=== PATIENT | male | born 1965 | race Two or more races ===

== ENCOUNTER 2024-12-10 12:22 | Inpatient (IN) | payer MEDICAID, OTHER ==
[~2024-12-10] VITALS: Ht 175.3 cm; Wt 63.9 kg
[2024-12-10] VITALS (7 sets, daily range): BP systolic 93–122; BP diastolic 59–79; PULSE 108–114; RESP 18–20; TEMP 98; O2SAT 97–100
[~2024-12-10 12:22] MED LIST: ACET-6 PO; APIX2.5T PO; ASPI81CH59 PO; ATOR40TA52 PO; ERGO1CAP12 PO; FURO20TA4 PO; GAB100C PO; IBUP1TAB4 PO; LOSA-534 PO; METO25TA93 PO; PRED20TA2 PO
--- NOTE | 2024-12-10 12:45 | ED.PDOC ---
HPI Comments 59 y/o M, BIBA with PMHx of COPD, CHF, and PE presents to the ED for CC of chest pain. EMS reports, patient is coming from home where he complains of substernal chest pain with associated shortness of breath x1day. Patient states, that he was discharged from [facility] last night (12/09/24) and since, symptoms have arouse. In route to the ED, patient was given Nitro and Aspirin; reports slight improvement of symptoms. Patient comments, that he is currently on Eliquis no other medications reported at this time. Patient denies palpitations, fever, cough, chills, headache, or weakness. No other symptoms or modifying factors present at this time. Chief Complaint: Shortness of Breath Time Seen by MD: 12:30 Reviewed Notes: Nurses Notes, Liquor Blender Notes, Medications, Allergies Allergies: Coded Allergies: NO KNOWN ALLERGIES (Unverified , 12/10/24) Information Source: Patient, Emergency Med Personnel Mode of Arrival: EMS Severity: Moderate Timing: Hours Duration: Since onset Prehospital treatment: None Location: Substernal Radiation: No Radiation Quality: Sharp Onset: At Rest Cardiac Risk Factors: None PE Risk Factors: None History of: None Modifying Factors: Nothing Associated Signs and Symptoms: SOB Past Medical History PAST MEDICAL HISTORY: HTN, Thyroid Surgical History: Unknown Family History Family History: Unknown Social History Smoker: Non-Smoker Alcohol: Denies ETOH Use Drugs: Denies Drug Use Lives In: Home Constitutional: denies: chills, diaphoresis, fatigue, fever, malaise, sweats, weakness, others EENTM: denies: blurred vision, double vision, ear bleeding, ear discharge, ear drainage, ear pain, ear ringing, eye pain, eye redness, hearing loss, mouth pain, mouth swelling, nasal discharge, nose bleeding, nose congestion, nose pain, photophobia, tearing, throat pain, throat swelling, voice changes, others Respiratory: reports: shortness of breath; denies: cough, hemoptysis, orthopnea, SOB at rest, SOB with excertion, stridor, wheezing, others Cardiovascular: reports: chest pain; denies: dizzy spells, diaphoresis, Dyspnea on exertion, edema, irregular heart beat, left arm pain, lightheadedness, palpitations, PND, syncope, others Gastrointestinal: denies: abdomen distended, abdominal pain, blood streaked bowels, constipated, diarrhea, dysphagia, difficulty swallowing, hematemesis, melena, nausea, poor appetite, poor fluid intake, rectal bleeding, rectal pain, vomiting, others Genitourinary: denies: burning, dysuria, flank pain, frequency, hematuria, incontinence, penile discharge, penile sore, pain, testicle pain, testicle swelling, urgency, others Neurological: denies: dizziness, fainting, headache, left sided numbness, left sided weakness, numbness, paresthesia, pre-existing deficit, right sided numbness, right sided weakness, seizure, speech problems, tingling, tremors, weakness, others Musculoskeletal: denies: back pain, gout, joint pain, joint swelling, muscle pain, muscle stiffness, neck pain, others Integumetry: denies: bruises, change in color, change in hair/nails, dryness, laceration, lesions, lumps, rash, wounds, others Allergic/Immunocompromised: denies: Difficulty Healing, Frequent Infections, Hives, Itching, others Hematologic/Lymphatic: denies: anemia, blood clots, easy bleeding, easy bruising, swollen glands, others Endocrine: denies: excessive hunger, excessive sweating, excessive thirst, excessive urination, flushing, intolerance to cold, intolerance to heat, unexplained weight gain, unexplained weight loss, others Psychiatric: denies: anxiety, bipolar disorder, depression, hopeless, panic disorder, schizophrenia, sleepless, suicidal, others All Other Systems: Reviewed and Negative Physical Exam General Appearance: No Apparent Distress, Normal HEENT: Normal ENT Inspection, Pharynx Normal, TMs Normal Neck: Full Range of Motion, Non-Tender, Normal, Normal Inspection Respiratory: Chest Non-Tender, No Accessory Muscle Use, No Respiratory Distress, Wheezing (bilateral) Cardiovascular: No Edema, No JVD, No Murmur, No Gallop, Normal Peripheral Pulses, Regular Rate/Rhythm Breast Exam: Deferred Gastrointestinal: No Organomegaly, Non Tender, No Pulsatile Mass, Normal Bowel Sounds, Soft Genitalia: Deferred Pelvic: Deferred Rectal: Deferred Extremities: No calf tenderness, Normal capillary refill, Normal inspection, Normal range of motion, Non-tender, Pedal edema (3+) Musculoskeletal : Apperance: Normal Neurologic: Alert, mechanical assembler II-XII nml as Tested, No Motor Deficits, Normal Affect, Normal Mood, No Sensory Deficits Cerebellar Function: Normal Reflexes: Normal Skin: Dry, Normal Color, Warm Lymphatic: No Adenopathy Was a procedure done? Was a procedure done?: No CP Differential Dx Differential Diagnosis: A-fib, A-Flutter, Angina, Anxiety / Panic Attack, Atrial Dysrhythmia, Electrolyte Disorder, Heart Failure, Hyperthyroidism, Hyperventilation, Hypoxia, MAT, AK, PSVT, Pulmonary Embolus, PVC's, Renal Failure, Sinus Tachycardia, Torsades De Pointes, Ventricular Dysrhythmia, WPW Differential Diagnosis: CHF Differential Diagnosis: Chest Wall Pain, Costochondritis, Myocardial Infarction, Pericarditis, Pneumonia, Pneumothorax, Pulmonary Embolus X-Ray, Labs, Meds, VS Vital Signs Date Time Temp Pulse Resp B/P (MAP) Pulse Ox O2 Delivery O2 Flow Rate FiO2 12/10/24 13:36 108 12/10/24 13:05 113/70 12/10/24 13:00 108 20 98 Nasal Cannula* 4 36 12/10/24 13:00 98.0 108 20 113/70 (84) 98 98.0 12/10/24 13:00 109 12/10/24 12:58 21 96 Nasal Cannula* 3 32 12/10/24 12:35 95 Nasal Cannula* 4 36 12/10/24 12:30 109 24 120/76 (91) 95 12/10/24 12:24 109 Lab Test 12/10/24 13:04 Range/Units White Blood Count 12.0 H 4.4-10.8 10^3/uL Red Blood Count 4.55 4.5-5.90 10^6/uL Hemoglobin 14.6 13.5-17.5 g/dL Hematocrit 45.3 41.0-53.0 % Mean Corpuscular Volume 99.7 80.0-100.0 fL Mean Corpuscular Hemoglobin 32.2 H 28.0-32.0 pg Mean Corpuscular Hemoglobin Concent 32.3 32.0-36.0 g/dL Red Cell Distribution Width 14.7 H 11.8-14.3 % Platelet Count 120 L 140-450 10^3/uL Mean Platelet Volume 7.9 6.9-10.8 fL Neutrophils (%) (Auto) 37.0-80.0 % Lymphocytes (%) (Auto) 10.0-50.0 % Monocytes (%) (Auto) 0.0-12.0 % Basophils (%) (Auto) 0.0-2.0 % Neutrophils # (Auto) 1.6-8.6 10 ^3/uL Lymphocytes # (Auto) 0.4-5.4 10 ^3/uL Monocytes # (Auto) 0-1.3 10 ^3/uL Differential Total Cells Counted 100.0 100 Neutrophils % (Manual) 66 37.0-80.0 Band Neutrophils % (Manual) 1 Lymphocytes % (Manual) 17 10.0-50.0 Monocytes % (Manual) 15 H 0-12 Eosinophils % (Manual) 1 0-7 Basophils % (Manual) 0 0.0-2.0 Metamyelocytes % (manual) 0 Myelocytes % (Manual) 0 Promyelocytes % (Manual) 0 Blast Cells % (Manual) 0 Reactive Lymphocytes 0 Platelet Estimate Decreased Stomatocytes Few Sodium Level 139 136-145 mmol/L Potassium Level 4.8 3.5-5.1 mmol/L Chloride Level 93 L 98-107 mmol/L Carbon Dioxide Level > 40 *H 20-31 mmol/L Anion Gap 5.96992 5-15 Blood Urea Nitrogen 35 H 9-23 mg/dL Creatinine 0.82 0.700-1.30 mg/dL Glomerular Filtration Rate Calc 101 >90 mL/min BUN/Creatinine Ratio 42.7 H 10.0-20.0 Serum Glucose 87 74-106 mg/dL Lactic Acid Level 1.0 0.4-2.0 mmol/L Calcium Level 9.9 8.7-10.4 mg/dL Troponin I High Sensitivity 147 *H </=54 ng/L B-Type Natriuretic Peptide 505.91 0-100 pg/mL Current Medications Medications (Trade) Dose Ordered Sig/Saroj Route Start Time Stop Time Status Last Admin Albuterol (Ventolin Medneb) 5 mg ONCE ONCE NEB 12/10/24 12:45 12/10/24 12:46 DC 12/10/24 12:52 Ipratropium [place] (Atrovent Medneb) 0.5 mg ONCE ONCE NEB 12/10/24 12:45 12/10/24 12:46 DC 12/10/24 12:52 Furosemide (Lasix Injection) 40 mg ONCE ONCE IV 12/10/24 12:45 12/10/24 12:46 DC 12/10/24 13:05 Levofloxacin/ Dextrose 100 ml @ 50 mls/hr Q24H IV 12/10/24 13:45 12/10/24 14:[address] [address] Ph: [phone] DIAGNOSTIC IMAGING Diagnostic Imaging Report : [id number] Signed PATIENT: CASSI DE ANDA ACCT: [id number] UNIT: [id number] : 1965 LOC: ER ROOM / BED: / AGE / SEX: 59 / M ADM STATUS: REG ER SERVICE 1231 ORDERING PHYSICIAN: GEOFF GODWIN MD PROCEDURE(s): CXRP - CHEST PORTABLE REASON: sob ORDER NUMBER(s): [id number], ACCESSION NUMBER(s): [id number] CHEST RADIOGRAPH Indication: sob Technique: Single frontal view of the chest was obtained COMPARISON: None FINDINGS: Lines and Tubes: None Lungs: Extensive scarring is seen in the bilateral mid to upper lung douglas. Superimposed pneumonia is difficult to exclude Pleura: No effusion. No pneumothorax. Cardiomediastinal contours: Unremarkable Bones: Unremarkable IMPRESSION: 1. Extensive scarring is seen in the bilateral mid to upper lung douglas. Superimposed pneumonia is difficult to exclude ATED BY: KIMBERLEE WHELAN MD DICTATED DATE/TIME: 12/10/241310 SIGNED BY: KIMBERLEE WHELAN MD SIGNED DATE/TIME: 12/10/24 131 CC: Time of 1ST Reevaluation: 13:00 Reevaluation 1ST: Unchanged Time of 2ND Reevaluation: 13:53 Reevaluation 2ND: Resolved Time of 3RD Reevaluation: 15:38 Reevaluation 3RD: Unchanged Patient Education/Counseling: Diagnosis, Treatment, Prognosis, Need For Follow Up Family Education/Counseling: No Family Present Additional Information The following tests were ordered, and results were reviewed by me: TROPONIN X3, CBC, B-TYPE NATRIURETIC, BMP, EKG X3, CXR Additional Information was gathered from interviewing the following independent historians: EMS I reviewed and agreed with the following test results read by other providers: CXR I discussed treatment and results with medical personnel and: patient Comprehensive systems review obtained and negative except for what is stated in the HPI. pt is much better after med neb. he refused bipap and abg. he is restful, working on his cell phone nonchalantly pt meets sepsis criteria, however he has preexisting condition of volume overload, as evidenced by the elevated BNP, pedal edema, so sepsis fluid bolus was not ordered he has [id number] of elevated troponin, pulmonary scarring, which cannot exclude superimposed pneumonia. so antibiotics and cultures are ordered. he has copd which responded well to med neb treatments. he will be admitted for respiratory distress, NSTEMI, copd exacerbation, pulmonary scarring/ rule out pneumonia Sepsis Sepsis Reasesment Focused Exam Orders: Laboratory Tests 12/10/24 13:04: Lactic Acid Level 1.0 Departure 1 Departure Time of Disposition: 15:51 Impression: Primary Impression: Acute respiratory distress Additional Impressions: COPD exacerbation NSTEMI (non-ST elevated myocardial infarction) Disposition: ADMITTED INPATIENT Admit to: Tele Condition: Fair Discharged With: Self Critical Care Note Critical Care Time?: Yes (55 min-critical care time only) Critical care comment: Due to concerns for patients condition deteriorating, the care required my highest level of attention and readiness to intervene. I assessed the patient, reviewed the medical records, ordered the appropriate tests and treatments, then reassessed for results and responsiveness. I communicated with medical personnel and consultants and formulated a plan of care. Total critical care time excludes any procedures Stability Stability form required: No Heart Score Heart Score: Heart Score Response (Comments) Value History Moderate Suspicious 1 EKG Repolarization Disturb 1 Age 45-64 1 Risk Factors 1 or 2 risk factors 1 Troponin >3 x's Normal limit 2 Total 6 I personally scribed for GEOFF GODWIN MD ([email or web address]) on 12/10/24 at 12:45. Electronically submitted by Sulma Samayoa ([employer]). I personally scribed for GEOFF GODWIN MD ([email or web address]) on 12/10/24 at 12:51. Electronically submitted by Sulma Samayoa ([employer]). I personally scribed for GEOFF GODWIN MD ([email or web address]) on 12/10/24 at 13:18. Electronically submitted by Sulma Samayoa ([employer]). GEOFF GODWIN MD December 10, 2024 12:45
[2024-12-10] MEDS: ALBUTEROL SULF 2.5 MG/0.5ML(0.5%) NEB SOLN NEB ONE (12:52)
[2024-12-10] MEDS: IPRATROPIUM BROM 0.5 MG/2.5ML INH SOL NEB ONE (12:52)
[2024-12-10] MEDS: FUROSEMIDE 40 MG/4 ML VIAL IV ONE (13:05)
--- NOTE | 2024-12-10 13:14 | DVH ---
CHEST RADIOGRAPH Indication: sob Technique: Single frontal view of the chest was obtained COMPARISON: None FINDINGS: Lines and Tubes: None Lungs: Extensive scarring is seen in the bilateral mid to upper lung douglas. Superimposed pneumonia is difficult to exclude Pleura: No effusion. No pneumothorax. Cardiomediastinal contours: Unremarkable Bones: Unremarkable IMPRESSION: 1. Extensive scarring is seen in the bilateral mid to upper lung douglas. Superimposed pneumonia is d ifficult to exclude
[2024-12-10 13:35] LABS: Potassium 4.8 mmol/L (3.5-5.1); Sodium 139 mmol/L (136-145)
[2024-12-10 13:36] LABS: Calcium 9.9 mg/dL (8.7-10.4)
--- NOTE | 2024-12-10 13:37 | ECG ---
[facility] Test Date: 2024-12-10 Test Time: 13:36:27 Pat Name: CASSI DE ANDA Department: ED Room: Cath ICU Gender: M Infrastructure Engineer: ARTURO : 1965 Requested By: GEOFF GODWIN Order Number: [id number] Reading MD: Adi Adame Measurements Intervals Trosper Rate: 108 P: 87 DE: 116 QRS: 237 QRSD: 95 T: 60 QT: 339 QTc: 455 Interpretive Statements Sinus tachycardia Right atrial enlargement Right ventricular hypertrophy Electronically Signed On 12-12-2024 12:08:26 PDT by Adi Adame Please click the below link to view image of tracing.
[2024-12-10 13:41] LABS: BUN/Creatinine Ratio 42.7 (10.0-20.0); Glucose 87 mg/dL (74-106)
[2024-12-10] MEDS ORDERED: LACTATED RINGER'S 2,100 ML IV ONE (13:45)
[2024-12-10 13:51] LABS: Anion Gap 5.99999 (5-15); Blood Urea Nitrogen 35 mg/dL (9-23); Chloride 93 mmol/L (98-107)
[2024-12-10 13:53] LABS: Hematocrit 45.3 % (41.0-53.0); Hemoglobin 14.6 g/dL (13.5-17.5); Mean Corpuscular Hemoglobin 32.2 pg (28.0-32.0); Mean Corpuscular Hgb Conc. 32.3 g/dL (32.0-36.0); Mean Corpuscular Volume 99.7 fL (80.0-100.0); Platelet Count (auto) 120 10^3/uL (140-450); Red Blood Cells 4.55 10^6/uL (4.5-5.90); Red Cell Distribution Width 14.7 % (11.8-14.3)
[2024-12-10 13:54] LABS: Basophils % (manual) 0 (0.0-2.0); Blast Cells 0; Carbon Dioxide > 40 mmol/L (20-31); Metamyelocytes % 0; Myelocytes % 0; Promyelocytes % 0; Reactive Lymphocytes 0
[2024-12-10] MEDS: levoFLOXacin 500MG 100 ML IV SCH (14:36)
[2024-12-10 14:42] LABS: Band Neutrophils % (manual) 1; Eosinophils % (manual) 1 (0-7); Lymphocytes % (manual) 17 (10.0-50.0); Monocytes % (manual) 15 (0-12); Platelet Estimate Decreased
[2024-12-10 14:43] LABS: Stomatocytes Few
--- NOTE | 2024-12-10 16:06 | DVHHP2 ---
Admitting Diagnosis: SOB History of Present Illness 59 y/o M, BIBA with PMHx of COPD, CHF, and PE presents to the ED for CC of chest pain. EMS reports, patient is coming from home where he complains of substernal chest pain with associated shortness of breath x1day. Patient states, that he was discharged from [facility] last night (12/09/24) and since, symptoms have arouse. In route to the ED, patient was given Nitro and Aspirin; reports slight improvement of symptoms. Patient comments, that he is currently on Eliquis no other medications reported at this time. Patient denies palpitations, fever, cough, chills, headache, or weakness. No other symptoms or modifying factors present at this time. PAST MEDICAL HISTORY: HTN, Thyroid, COPD, CHF, PE Surgical History: Unknown Family History Family History: Unknown Social History Smoker: Non-Smoker Alcohol: Denies ETOH Use Drugs: Denies Drug Use Lives In: Home Allergies: Coded Allergies: NO KNOWN ALLERGIES (Unverified , 12/10/24) Current Medications Current Medications Medications (Trade) Dose Ordered Sig/Saroj Route PRN Reason Start Time Stop Time Status Last Admin Levofloxacin/ Dextrose 100 ml @ 50 mls/hr Q24H IV 12/10/24 13:45 12/10/24 14:36 Vital Signs Vital Signs Date Time Temp Pulse Resp B/P (MAP) Pulse Ox O2 Delivery O2 Flow Rate FiO2 12/10/24 16:20 106 12/10/24 16:00 98.0 13 110/79 (89) 98 98.0 12/10/24 15:20 Nasal Cannula* 4 36 Physical Exam Generally 69 years old male, frail, sitting on bed. Mild distress HEENT-atraumatic, normocephalic Heart-regular rate and rhythm Lungs decreased breath sounds bilaterally Abdomen soft nontender nondistended Musculoskeletal-no edema cyanosis Neuro-AO x3, no focal deficits Results Labs Test 12/10/24 13:10 12/10/24 13:04 Range/Units Urine Color Colorless Yellow Urine Clarity Clear Clear Urine pH 5.5 5.0-9.0 Urine Specific [place] 1.008 1.001-1.035 Urine Protein Negative Negative Urine Ketones Negative Negative Urine Blood Negative Negative /uL Urine Nitrite Negative Negative Urine Bilirubin Negative Negative Urine Urobilinogen Normal Negative mg/dL Urine Leukocyte Esterase Negative Negative /uL Urine RBC <1 0 - 3 /hpf Urine Microscopic WBC < 1 0-3 /HPF Urine Squamous Epithelial Cells None seen <5 /hpf Urine Bacteria Few H None Seen /hpf Urine Glucose Normal Normal mg/dL White Blood Count 12.0 H 4.4-10.8 10^3/uL Red Blood Count 4.55 4.5-5.90 10^6/uL Hemoglobin 14.6 13.5-17.5 g/dL Hematocrit 45.3 41.0-53.0 % Mean Corpuscular Volume 99.7 80.0-100.0 fL Mean Corpuscular Hemoglobin 32.2 H 28.0-32.0 pg Mean Corpuscular Hemoglobin Concent 32.3 32.0-36.0 g/dL Red Cell Distribution Width 14.7 H 11.8-14.3 % Platelet Count 120 L 140-450 10^3/uL Mean Platelet Volume 7.9 6.9-10.8 fL Neutrophils (%) (Auto) 37.0-80.0 % Lymphocytes (%) (Auto) 10.0-50.0 % Monocytes (%) (Auto) 0.0-12.0 % Basophils (%) (Auto) 0.0-2.0 % Neutrophils # (Auto) 1.6-8.6 10 ^3/uL Lymphocytes # (Auto) 0.4-5.4 10 ^3/uL Monocytes # (Auto) 0-1.3 10 ^3/uL Differential Total Cells Counted 100.0 100 Neutrophils % (Manual) 66 37.0-80.0 Band Neutrophils % (Manual) 1 Lymphocytes % (Manual) 17 10.0-50.0 Monocytes % (Manual) 15 H 0-12 Eosinophils % (Manual) 1 0-7 Basophils % (Manual) 0 0.0-2.0 Metamyelocytes % (manual) 0 Myelocytes % (Manual) 0 Promyelocytes % (Manual) 0 Blast Cells % (Manual) 0 Reactive Lymphocytes 0 Platelet Estimate Decreased Stomatocytes Few Sodium Level 139 136-145 mmol/L Potassium Level 4.8 3.5-5.1 mmol/L Chloride Level 93 L 98-107 mmol/L Carbon Dioxide Level > 40 *H 20-31 mmol/L Anion Gap 5.69290 5-15 Blood Urea Nitrogen 35 H 9-23 mg/dL Creatinine 0.82 0.700-1.30 mg/dL Glomerular Filtration Rate Calc 101 >90 mL/min BUN/Creatinine Ratio 42.7 H 10.0-20.0 Serum Glucose 87 74-106 mg/dL Lactic Acid Level 1.0 0.4-2.0 mmol/L Calcium Level 9.9 8.7-10.4 mg/dL Troponin I High Sensitivity 147 *H </=54 ng/L B-Type Natriuretic Peptide 505.91 0-100 pg/mL Primary Diagnosis elevated trop r/o acs Chest pain Acute hypoxic respiratory failure COPD exacerbation Leukocytosis possible Pneumonia Plan Ceftriaxone 1g daily, azithromycin 500mg iv daily for possible PNA Check sputum Cx, BCx, UA and UCx duo-neb q6h for sob check d-dimer. if positive, check CTA chest to r/o pe Check ABG Solu-Medrol 60 mg q.6 hours standing Troponin elevated. Trend q.6 hours until plateau. Check echo of the heart rule out ACS Saturation goal greater than 92% Full code Lovenox for DVT prophylaxis GI prophylaxis on steroids Cardiac diet Plan discussed with: Patient Problems List: (1) Elevated troponin (2) COPD exacerbation Status: Acute (3) Acute respiratory distress Status: Acute Date of Service: December 10, 2024 Billing Provider: LIZA DALEY MD Common Visit Codes: [id number] INP/OBS CARE (HIGH) LIZA DALEY MD December 10, 2024 16:06
[2024-12-10] MEDS: ASPirin 81 mg TAB PO ONE (16:49)
[2024-12-10 17:27] LABS: Urine Bacteria FEW /hpf (None Seen); Urine Blood Negative /uL (Negative); Urine Clarity Clear (Clear); Urine Color Colorless (Yellow); Urine Protein, UAD Negative (Negative); Urine Specific Gravity 1.008 (1.001-1.035); Urine Squamous Epithelial Cell None Seen /hpf (<5); Urine Urobilinogen Normal (Negative); Urine WBC < 1 /HPF (0-3); Urine pH 5.5 (5.0-9.0)
[2024-12-10] MEDS ORDERED: MORPHINE SULFATE INJ 2 MG/ml SYRG IV PRN (17:45)
[2024-12-10] MEDS ORDERED: NITROGLYCERIN 0.4 MG SL TAB SL PRN (17:45)
[2024-12-10] MEDS ORDERED: ACETAMINOPHEN 325 MG TAB PO PRN (17:45)
[2024-12-10] MEDS ORDERED: DOCUSATE SOD 100 MG CAP PO PRN (17:45)
[2024-12-10] MEDS: ALBUTEROL SULF 2.5 MG/0.5ML(0.5%) NEB SOLN NEB SCH (18:50)
[2024-12-10] MEDS: IPRATROPIUM BROM 0.5 MG/2.5ML INH SOL NEB SCH (18:50)
[2024-12-10] MEDS: HYDROcodone-ACET 5/325MG TAB PO PRN (20:49)
[2024-12-10] MEDS: methylPREDNISolone SOD SUCC 125 MG/2 ML VL IV SCH (23:09)
[2024-12-10] MEDS: SODIUM CHLOR 0.9% PF (SALINE LOCK) 10ML VIAL/SYR IV SCH (23:09)
[2024-12-11] VITALS (47 sets, daily range): BP systolic 54–165; BP diastolic 34–125; PULSE 73–135; RESP 16–24; TEMP 96.6–98.4; O2SAT 88–100
[2024-12-11] MEDS: PANTOPRAZOLE 40 MG/10 ML VIAL INJ IV SCH (09:46)
[2024-12-11] MEDS: cefTRIAXone 1GM/50ML D5W 50 ML IV SCH (09:47)
[2024-12-11] MEDS: ENOXAPARIN SOD 40 MG/0.4 ML SYRINGE SC SCH (09:47)
[2024-12-11 10:32] LABS: Basophils # (auto) 0 10 ^3/uL (0-0.2); Basophils % (auto) 0.1 % (0.0-2.0); Eosinophils # (auto) 0 10 ^3/uL (0-0.8); Hematocrit 47.6 % (41.0-53.0); Hemoglobin 15.5 g/dL (13.5-17.5); Lymphocytes # (auto) 0.1 10 ^3/uL (0.4-5.4); Lymphocytes % (auto) 1.8 % (10.0-50.0); Mean Corpuscular Hemoglobin 32.7 pg (28.0-32.0); Mean Corpuscular Hgb Conc. 32.5 g/dL (32.0-36.0); Mean Corpuscular Volume 100.7 fL (80.0-100.0); Monocytes # (auto) 0.2 10 ^3/uL (0-1.3); Monocytes % (auto) 2.3 % (0.0-12.0); Neutrophils # (auto) 7.2 10 ^3/uL (1.6-8.6); Neutrophils % (auto) 95.8 % (37.0-80.0); Platelet Count (auto) 115 10^3/uL (140-450); Red Blood Cells 4.73 10^6/uL (4.5-5.90); Red Cell Distribution Width 14.3 % (11.8-14.3); White Blood Cell 7.6 10^3/uL (4.4-10.8)
[2024-12-11 10:43] LABS: Albumin 4.1 g/dL (3.2-4.8); BUN/Creatinine Ratio 45.7 (10.0-20.0); Calcium 9.7 mg/dL (8.7-10.4); Cholesterol 133 mg/dL (< 200); LDL Cholesterol 40 mg/dL (< 100); Magnesium 1.7 mg/dL (1.6-2.6); Sodium 139 mmol/L (136-145); Total Protein 6.7 g/dL (5.7-8.2); Triglycerides 51 mg/dL (< 150)
[2024-12-11 10:44] LABS: Alanine Aminotransferase 47 U/L (7-40); Alkaline Phosphatase 127 U/L (46-116); Anion Gap 11.99999 (5-15); Aspartate Aminotransferase 45 U/L (13-40); Bilirubin, Total 0.7 mg/dL (0.2-1.0); Blood Urea Nitrogen 43 mg/dL (9-23); Carbon Dioxide > 40 mmol/L (20-31); Chloride 87 mmol/L (98-107); Glucose 301 mg/dL (74-106); Potassium 5.4 mmol/L (3.5-5.1)
[2024-12-11 10:45] LABS: HDL Cholesterol 73 mg/dL (40-59)
[2024-12-11] MEDS: AZITHROMYCIN 500MG/ 250ML 250 ML IV SCH (12:03)
--- NOTE | 2024-12-11 14:29 | MEDREC ---
[facility] Intervention Section I [facility] Intervention: Duplication of therapy (PLEASE CONSIDER TO D/C LEVOFLOXACIN (DUPLICATE THERAPY WITH AZYTHROMYCIN + CEFTRIAXONE)) SANA PRESTON PHARMACIST December 11, 2024 14:29
[2024-12-11 14:40] LABS: Opiate Scree,Urine Pos (NEGATIVE)
[2024-12-11 14:43] LABS: Amphetamine Screen, Urine Neg (NEGATIVE); Barbiturate Scree,Urine Neg (NEGATIVE); Benzodiazephine Screen, Urine Neg (NEGATIVE); Cannabinoid Screen, Urine Neg (NEGATIVE); Cocaine Screen, Urine Neg (NEGATIVE); Phencyclidine Screen, Urine Neg (NEGATIVE)
--- NOTE | 2024-12-11 14:56 | DVHINCON2 ---
Date Seen: December 11, 2024 Referring Physician MD Jennifer Reason for Consultation Elevated troponin History of Present Illness This is a 59-year-old man who presented to the emergency room via EMS with a chief complaint of chest pain x1 day. Upon assessment the patient was found on a tripod position with severe shortness of breath. He is a very poor historian. Denies chest pain. Per records, he was discharged from [facility] on 12/09/2024. The patient is unable to report diagnosis or treatment. EN route to the hospital he was medicated with ASA 324 mg, NTG SL, and found with BGL of 150 mg/dL. Upon arrival to the emergency room he underwent multiple 12 lead electrocardiograms x 2 revealing a sinus tachycardia rhythm up to 109 bpm and suggestive of right ventricular hypertrophy. Serial troponin levels peaked at 147 ng/L. Significant medical history includes congestive heart failure, history of PE on Eliquis therapy, hypertension, dyslipidemia, and prediabetes. Past Medical History Not fully reviewed, patient is a poor historian. Past Surgical History Unknown past surgical history, poor historian. Family History: Patient reports no known family medical history. Family History Unknown family history, poor historian. Social History Unknown social history, poor historian. Allergies: Coded Allergies: NO KNOWN ALLERGIES (Unverified , 12/10/24) Home Meds Home medications reviewed. Current Medications Current Medications Medications (Trade) Dose Ordered Sig/Saroj Route PRN Reason Start Time Stop Time Status Last Admin Ceftriaxone Sodium 50 ml @ 100 mls/hr DAILY IV 12/11/24 10:00 12/11/24 09:47 Azithromycin 250 ml @ 125 mls/hr DAILY IV 12/11/24 10:00 12/11/24 12:03 Albuterol (Ventolin Medneb) 2.5 mg Q6H NEB 12/10/24 17:45 12/11/24 11:12 Ipratropium [place] (Atrovent Medneb) 0.5 mg Q6H NEB 12/10/24 17:45 12/11/24 11:13 Pantoprazole Sodium (Protonix) 40 mg DAILY IV 12/11/24 10:00 12/11/24 09:46 Methylprednisolone Sodium Succinate (Solu Medrol) 62.5 mg Q6H IV 12/10/24 17:45 12/11/24 09:46 Sodium Chloride (Saline Lock Ns) 10 ml Q8HR IV 12/10/24 22:00 12/11/24 06:23 Docusate Sodium (Colace Capsule) 100 mg BIDPRN PRN PO FOR CONSTIPATION 12/10/24 17:45 Acetaminophen (Tylenol Tablet) 650 mg Q6HP PRN PO PAIN SCALE 1-3 OR TEMP>100.4 12/10/24 17:45 Acetaminophen/ Hydrocodone Bitart ([place] 5/325MG Tab) 1 tab Q4HP PRN PO MODERATE PAIN (4-6 PAIN SCALE) 12/10/24 17:45 12/11/24 06:18 Enoxaparin Sodium (Lovenox) 40 mg DAILY SC 12/11/24 10:00 Nitroglycerin (Ntrostat Sublingual) 0.4 mg Q5MINP PRN SL FOR CHEST PAIN 12/10/24 17:45 Morphine Sulfate 2 mg Q30M PRN IV FOR CHEST PAIN 12/10/24 17:45 Review of Systems Constitutional: No symptom reported Ears, Nose, & Throat: No symptom reported Eyes: No symptom reported Neurological: No symptoms reported Pulmonary/Respiratory: SOB Cardiovascular: Chest pain Gastrointestinal: No symptom reported Genitourinary: No symptom reported Musculoskeletal: No symptom reported Skin: No symptom reported Psychiatric: No symptom reported Endocrine: No symptom reported Hemotologic/Lymphatic: No symptom reported Vital Signs Vital Signs Date Time Temp Pulse Resp B/P (MAP) Pulse Ox O2 Delivery O2 Flow Rate FiO2 12/11/24 11:21 99 20 100 12/11/24 10:30 Nasal Cannula 5.0 12/11/24 10:30 40 12/11/24 09:00 97.5 138/98 (111) 97.5 Physical Exam General Appearance: Chronically ill. Moderate to severe respiratory distress Head Exam: Normal inspection Neck Exam: Normal inspection. Non-tender. Normal alignment Pulmonary/Respiratory: Chest non-tender. Diminished bilateral breath sounds. O2 via NC Cardiovascular/Chest: Regular rate and rhythm. S1, S2. SR suggestive of RVH Peripheral Pulses: 2+ Radial (R). 2+ Radial (L). 2+ Pedal (R). 2+ Pedal (L) Abdominal Exam: Normal bowel sounds. Soft. Ankle Exam: Positive ankle edema Lower extremities: Positive lower extremity edema Neuro/Mental Status: Alert but very poor historian Thoughts/Psych: Unable to assess, not verbally active Appearance: Moderate to severe respiratory distress Skin Exam: Normal inspection. Normal color. Warm. Dry Labs/Diagnostic Data Labs Test 12/11/24 14:05 12/11/24 10:07 12/10/24 13:10 12/10/24 13:04 Range/Units White Blood Count 7.6 # 4.4-10.8 10^3/uL Red Blood Count 4.73 4.5-5.90 10^6/uL Hemoglobin 15.5 13.5-17.5 g/dL Hematocrit 47.6 41.0-53.0 % Mean Corpuscular Volume 100.7 H 80.0-100.0 fL Mean Corpuscular Hemoglobin 32.7 H 28.0-32.0 pg Mean Corpuscular Hemoglobin Concent 32.5 32.0-36.0 g/dL Red Cell Distribution Width 14.3 11.8-14.3 % Platelet Count 115 L 140-450 10^3/uL Mean Platelet Volume 8.5 6.9-10.8 fL Neutrophils (%) (Auto) 95.8 H 37.0-80.0 % Lymphocytes (%) (Auto) 1.8 L 10.0-50.0 % Monocytes (%) (Auto) 2.3 0.0-12.0 % Eosinophils (%) (Auto) 0.0 0.0-7.0 % Basophils (%) (Auto) 0.1 0.0-2.0 % Neutrophils # (Auto) 7.2 1.6-8.6 10 ^3/uL Lymphocytes # (Auto) 0.1 L 0.4-5.4 10 ^3/uL Monocytes # (Auto) 0.2 0-1.3 10 ^3/uL Eosinophils # (Auto) 0 0-0.8 10 ^3/uL Basophils # (Auto) 0 0-0.2 10 ^3/uL Nucleated Red Blood Cells 0.0 % Sodium Level 139 136-145 mmol/L Potassium Level 5.4 H 3.5-5.1 mmol/L Chloride Level 87 L 98-107 mmol/L Carbon Dioxide Level > 40 *H 20-31 mmol/L Anion Gap 11.61969 5-15 Blood Urea Nitrogen 43 H 9-23 mg/dL Creatinine 0.94 0.700-1.30 mg/dL Glomerular Filtration Rate Calc 93 >90 mL/min BUN/Creatinine Ratio 45.7 H 10.0-20.0 Serum Glucose 301 #H 74-106 mg/dL Hemoglobin A1c 6.2 H <5.7 % A1C Calcium Level 9.7 8.7-10.4 mg/dL Magnesium Level 1.7 1.6-2.6 mg/dL Total Bilirubin 0.7 0.2-1.0 mg/dL Aspartate Amino Transferase (AST) 45 H 13-40 U/L Alanine Aminotransferase (ALT) 47 H 7-40 U/L Alkaline Phosphatase 127 H 46-116 U/L Troponin I High Sensitivity 123 *H </=54 ng/L Total Protein 6.7 5.7-8.2 g/dL Albumin 4.1 3.2-4.8 g/dL Triglycerides Level 51 < 150 mg/dL Cholesterol Level 133 < 200 mg/dL LDL Cholesterol 40 < 100 mg/dL HDL Cholesterol 73 H 40-59 mg/dL Thyroid Stimulating Hormone (TSH) 0.41 L 0.55-4.78 uIU/mL Urine Color Colorless Yellow Urine Clarity Clear Clear Urine pH 5.5 5.0-9.0 Urine Specific [place] 1.008 1.001-1.035 Urine Protein Negative Negative Urine Ketones Negative Negative Urine Blood Negative Negative /uL Urine Nitrite Negative Negative Urine Bilirubin Negative Negative Urine Urobilinogen Normal Negative mg/dL Urine Leukocyte Esterase Negative Negative /uL Urine RBC <1 0 - 3 /hpf Urine Microscopic WBC < 1 0-3 /HPF Urine Squamous Epithelial Cells None seen <5 /hpf Urine Bacteria Few H None Seen /hpf Urine Glucose Normal Normal mg/dL Differential Total Cells Counted 100.0 100 Neutrophils % (Manual) 66 37.0-80.0 Band Neutrophils % (Manual) 1 Lymphocytes % (Manual) 17 10.0-50.0 Monocytes % (Manual) 15 H 0-12 Eosinophils % (Manual) 1 0-7 Basophils % (Manual) 0 0.0-2.0 Metamyelocytes % (manual) 0 Myelocytes % (Manual) 0 Promyelocytes % (Manual) 0 Blast Cells % (Manual) 0 Reactive Lymphocytes 0 Platelet Estimate Decreased Stomatocytes Few D-Dimer, Quantitative < 0.19 0.0-0.49 mg/L FEU Lactic Acid Level 1.0 0.4-2.0 mmol/L B-Type Natriuretic Peptide 505.91 0-100 pg/mL Microbiology Date/Time Source Procedure Growth Status 12/10/24 20:35 Nose MRSA Screen - Final Complete Assessment Severe respiratory acidosis Acute hypoxic respiratory failure Acute kidney injury NSTEMI, likely type 2 secondary to above Chronic compensated HFmrEF Hx of PE on Eliquis Prediabetes Hypertension Borderline thrombocytopenia Plan/Recommendation (Dr. Ortega) The patient underwent a VBG (refused ABG) revealing severe respiratory acidosis for which he was offered BiPAP support which refused. Upgrade to RENARD for closer monitoring. Continue with a transthoracic echocardiogram to assess cardiac function. Initiate therapeutic Lovenox given history of PE. Continue Pulmonology recommendations. Further orders per clinical course. Thank you for allowing us to participate in this patient's care. Please call if you have any questions or concerns. Critical care time: 45 min. This medical document was created using an electronic medical record system with voice recognition software and computerized dictation system. Although this document has been carefully reviewed, there might still be some phonetic and typographical errors. Occasional wrong-word or ``sound-alike substitutions may have occurred due to the inherent limitations of voice recognition software. These areas are purely typographical due to imperfections of the software programs and do not reflect any compromise in the patient's medical care. Please read the chart carefully and recognize, using context, where these substitutions have occurred. Plan discussed with: Patient, Other NYHA Physical activity limitations: Class2(Slight)fatigue,sob (palpitatns, angina w activityv) Date of Service: December 11, 2024 Billing Provider: MAURI HARRIS Cardiology Common Codes: [id number] CARE 30-74 MIN MAURI HARRIS December 11, 2024 14:56
[2024-12-11] MEDS: ETOMIDATE (2MG/ML) 20ML VIAL IV ONE ×2 (16:17)
[2024-12-11] MEDS: SUCCINYLCHOLINE CHLORIDE 20 MG/ML 10ML VIAL IV ONE ×2 (16:17→16:20)
[2024-12-11] MEDS: ROCURONIUM 10MG/ML 10ML VIAL IV ONE (16:17)
[2024-12-11] MEDS ORDERED: MIDAZOLAM DRIP 50 mg/50mL 50 ML IV SCH (16:45)
[2024-12-11] MEDS: MIDAZOLAM DRIP 50 mg/50mL 50 ML IV ONE (16:48)
[2024-12-11] MEDS: fentaNYL Drip 2500mCg/250mlNS 250 ML IV ONE (16:48)
[2024-12-11] MEDS: NOREPINEPHRINE 8 MG/250ML KIT 250 ML IV ONE (16:49)
[2024-12-11] MEDS: MIDAZOLAM DRIP 50 mg/50mL 50 ML IV SCH (16:50)
[2024-12-11] MEDS: fentaNYL Drip 2500mCg/250mlNS 250 ML IV SCH (16:50)
[2024-12-11] MEDS: NOREPINEPHRINE 8 MG/250ML KIT 250 ML IV SCH (17:07)
--- NOTE | 2024-12-11 17:59 | DVH ---
CHEST RADIOGRAPH Indication: INTUBATED Technique: Single frontal view of the chest was obtained Comparison: XY CHEST PORTABLE on DOS: 12/10/24 FINDINGS: Lines and Tubes: Endotracheal tube terminates about 7.6 cm above the rosalva Lungs: Hyperinflation of the lungs with coarse interstitial marking. Possible calcified granuloma of the right mid lung zone. The lung bases outside the field of view. No pneumothorax. Cardiomediastinal contours: Unremarkable Bones: No acute osseous abnormality. IMPRESSION: Endotracheal tube terminates about 7.6 cm above the rosalva. Fibrotic/ emphysematous changes of the visualized lungs with superimposed infectious process not excl uded.
--- NOTE | 2024-12-11 18:36 | DVHPN2 ---
Subjective I am assuming the care of the patient from today onwards who was under the care of the hospitalist team. Detailed sign out obtained. 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 Patient is currently intubated and sedated. Changes from previous H/P or p: Changes (Patient is currently intubated on ventilator.) Objective Vitals Vital Signs Date Time Temp Pulse Resp B/P (MAP) Pulse Ox O2 Delivery O2 Flow Rate FiO2 12/11/24 16:25 94 24 112/82 (92) 100 100 12/11/24 13:00 98.4 98.4 12/11/24 10:30 Nasal Cannula 5.0 Intake/Output Intake and Output 12/11/24 07:00 Intake Total 340 ml Output Total 1700 ml Balance -1360 ml Intake Oral 240 ml IV Total 100 ml Output Urine Total 1700 ml Exam HEENT pupils are reactive Neck is supple CV is S1-S2 regular rate and rhythm Has been diminished breath sounds bilateral bases GI posterior bowel sound Extremity no edema 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 Medications Current Medications Medications Dose Ordered Sig/Saroj Route Start Time Stop Time Status Last Admin Dose Admin Levofloxacin/ Dextrose 100 ml @ 50 mls/hr Q24H IV 12/10/24 13:45 12/10/24 18:13 50 MLS/HR Ceftriaxone Sodium 50 ml @ 100 mls/hr DAILY IV 12/11/24 10:00 12/11/24 09:47 100 MLS/HR Azithromycin 250 ml @ 125 mls/hr DAILY IV 12/11/24 10:00 12/11/24 12:03 125 MLS/HR Albuterol 2.5 mg Q6H NEB 12/10/24 17:45 12/11/24 18:26 2.5 MG Ipratropium [place] 0.5 mg Q6H NEB 12/10/24 17:45 12/11/24 18:26 0.5 MG Pantoprazole Sodium 40 mg DAILY IV 12/11/24 10:00 12/11/24 09:46 40 MG Methylprednisolone Sodium Succinate 62.5 mg Q6H IV 12/10/24 17:45 12/11/24 09:46 62.5 MG Sodium Chloride 10 ml Q8HR IV 12/10/24 22:00 12/11/24 06:23 10 ML Docusate Sodium 100 mg BIDPRN PRN PO 12/10/24 17:45 Acetaminophen 650 mg Q6HP PRN PO 12/10/24 17:45 Acetaminophen/ Hydrocodone Bitart 1 tab Q4HP PRN PO 12/10/24 17:45 12/11/24 06:18 1 TAB Nitroglycerin 0.4 mg Q5MINP PRN SL 12/10/24 17:45 Morphine Sulfate 2 mg Q30M PRN IV 12/10/24 17:45 Enoxaparin Sodium 60 mg Q12HR SC 12/11/24 22:00 Metoprolol Succinate 25 mg DAILY PO 12/12/24 10:00 Future Hold Furosemide 20 mg DAILY IV 12/12/24 10:00 Norepinephrine Bitartrate 250 ml @ 3.75 mls/hr Q24H IV 12/11/24 16:45 Midazolam HCl 50 ml @ 1 mls/hr Q24H IV 12/11/24 16:45 Fentanyl Citrate 250 ml @ 2.5 mls/hr Q24H IV 12/11/24 16:45 Laboratory Results Laboratory Tests 12/11/24 10:07 Chemistry Test 12/11/24 10:07 Albumin 4.1 g/dL (3.2-4.8) Calcium Level 9.7 mg/dL (8.7-10.4) Magnesium Level 1.7 mg/dL (1.6-2.6) Total Protein 6.7 g/dL (5.7-8.2) Lipid panel Test 12/11/24 10:07 Cholesterol Level 133 mg/dL (< 200) HDL Cholesterol 73 mg/dL (40-59) H Triglycerides Level 51 mg/dL (< 150) LFT Test 12/11/24 10:07 Alanine Aminotransferase (ALT) 47 U/L (7-40) H Alkaline Phosphatase 127 U/L (46-116) H Aspartate Amino Transferase (AST) 45 U/L (13-40) H Total Bilirubin 0.7 mg/dL (0.2-1.0) HgA1c, TSH Test 12/11/24 10:07 Hemoglobin A1c 6.2 % A1C (<5.7) H Thyroid Stimulating Hormone (TSH) 0.41 uIU/mL (0.55-4.78) L Urinalysis Test 12/10/24 13:10 Urine Color Colorless (Yellow) Urine Clarity Clear (Clear) Urine pH 5.5 (5.0-9.0) Urine Specific [place] 1.008 (1.001-1.035) Urine Protein Negative (Negative) Urine Ketones Negative (Negative) Urine Blood Negative /uL (Negative) Urine Nitrite Negative (Negative) Urine Bilirubin Negative (Negative) Urine Urobilinogen Normal mg/dL (Negative) Urine Leukocyte Esterase Negative /uL (Negative) Urine RBC <1 /hpf (0 - 3) Urine Microscopic WBC < 1 /HPF (0-3) Urine Squamous Epithelial Cells None seen /hpf (<5) Urine Bacteria Few /hpf (None Seen) H Urine Glucose Normal mg/dL (Normal) Blood Gas Results Test 12/11/24 15:08 FiO2 % 36.0 Microbiology Microbiology Date/Time Source Procedure Growth Status 12/10/24 20:35 Nose MRSA Screen - Final Complete Assessment/Plan Assessment/Plan 59-year-old male with a known history of COPD, congestive heart failure, history of pulmonary embolism on Eliquis, was recently hospitalized at [facility] was discharged on December 09, presented to the hospital here with chest pain shortness breath found to have Acute COPD exacerbation. This morning patient was noted to be in tripod position eventually staff to be and has been gas was done which shows acute hypoxic and hypercapnic respiratory failure. Patient was offered BiPAP but he refused eventually elective intubation was done. 1. Acute hypoxic and hypercapnic respiratory failure secondary to acute COPD exacerbation currently intubated and sedated 2. NSTEMI suspected type 2 3. Acute on chronic congestive heart failure exacerbation unspecified 4. Acute COPD exacerbation 5. History of pulmonary embolism currently on therapeutic Lovenox 6. Hypertension -patient remains critical prognosis remained guarded, continue med nebs, IV Solu-Medrol, therapeutic Lovenox -daily ABG chest x-ray ventilator support, pulmonary consultation and Cardiology consultation. Plan discussed with: Other My Orders Orders - SURINDER MENENDEZ MD Procedure Category Date Status Time * Cardiology Consult CONS 12/11/24 Transmitted 12:42 * Picc Line Consult CONS 12/11/24 Transmitted 16:52 PTPTT LAB 12/11/24 Logged 16:52 Methylprednisolone PHA 12/11/24 Transmitted Sod Succ (Solu Medrol 22:00 Date of Service: December 11, 2024 Billing Provider: SURINDER MENENDEZ MD Common Visit Codes: [id number] INP/OBS CARE(HIGH) SURINDER MENENDEZ MD December 11, 2024 18:36
[2024-12-11 19:03] LABS: INR 1.03 (0.9-1.15); Partial Thromboplastin Time 23.9 SEC (24.5-34.5); Prothrombin Time 10.9 sec (9.3-11.8)
[2024-12-11 19:09] LABS: Base Excess 17.8 mmol/L (-2.0-3.0)
--- NOTE | 2024-12-11 20:45 | DVH ---
CHEST RADIOGRAPH Indication: ETT PLACEMENT Technique: Single frontal view of the chest was obtained Comparison: XY CHEST PORTABLE on DOS: 12/11/24, XY CHEST PORTABLE on DOS: 12/10/24 FINDINGS: Lines and Tubes: Endotracheal tube is between 5 and 6 cm above the rosalva. AED pads over the left jonas [address]. Lungs: Bilateral perihilar airspace disease noted worse on the left than the right. Pleura: No effusion. No pneumothorax. Cardiomediastinal contours: Unremarkable Bones: No acute osseous abnormality. IMPRESSION: 1. Endotracheal tube 5-6 cm above the rosalva. 2. Bilateral perihilar infiltrates with airspace disease in the mid lung [place]oug[place] left worse than right . HS:Y
--- NOTE | 2024-12-11 21:32 | DVH ---
CHEST RADIOGRAPH Indication: ETT PLACEMENT AND OGT PLACEMENT Technique: Single frontal view of the chest was obtained Comparison: XY CHEST XRAY 1 VIEW on DOS: 12/11/24, XY CHEST PORTABLE on DOS: 12/11/24, XY CHEST PORTABL E on DOS: 12/10/24 FINDINGS: Lines and Tubes: Endotracheal tube 5-6 cm above the rosalva. Endotracheal tube just below the left marino phragm recommend advancement 4-5 inches. Lungs: No focal consolidation. Pleura: No effusion. No pneumothorax. Cardiomediastinal contours: Unremarkable Bones: No acute osseous abnormality. IMPRESSION: 1. Endotracheal tube 5-6 cm above the rosalva. 2. Enteric tube just below the left diaphragm recommend advancement 4-5 inches. 3. No change in the pulmonary findings when compared with the study done at 8:17 p.m. On 12/11/2024 HS:Y
[2024-12-11] MEDS: methylPREDNISolone SOD SUCC 125 MG/2 ML VL IV SCH (21:56)
[2024-12-11] MEDS: FUROSEMIDE 20 MG/2 ML VIAL IV ONE (21:57)
[2024-12-11] MEDS: ENOXAPARIN SOD 60 MG/0.6 ML SYRINGE SC SCH (21:58)
[2024-12-11] MEDS: FUROSEMIDE 20 MG/2 ML VIAL ONE (22:00)
[2024-12-12] VITALS (108 sets, daily range): BP systolic 81–145; BP diastolic 52–106; PULSE 75–141; RESP 18–25; TEMP 97.3–99.1; O2SAT 97–100
[2024-12-12 00:40] LABS: Basophils # (auto) 0 10 ^3/uL (0-0.2); Eosinophils # (auto) 0 10 ^3/uL (0-0.8); Hematocrit 42.8 % (41.0-53.0); Hemoglobin 14.1 g/dL (13.5-17.5); Lymphocytes # (auto) 0.3 10 ^3/uL (0.4-5.4); Lymphocytes % (auto) 3.3 % (10.0-50.0); Mean Corpuscular Hemoglobin 32.6 pg (28.0-32.0); Mean Corpuscular Volume 98.9 fL (80.0-100.0); Monocytes % (auto) 11.4 % (0.0-12.0); Neutrophils # (auto) 7.4 10 ^3/uL (1.6-8.6); Neutrophils % (auto) 85.3 % (37.0-80.0); Nucleated Red Blood Cells % 0.1 %; Platelet Count (auto) 136 10^3/uL (140-450); Red Blood Cells 4.33 10^6/uL (4.5-5.90); Red Cell Distribution Width 14.3 % (11.8-14.3); White Blood Cell 8.7 10^3/uL (4.4-10.8)
[2024-12-12 00:42] LABS: Lactic Acid w/Reflex 3.1 mmol/L (0.4-2.0)
[2024-12-12 01:08] LABS: Alanine Aminotransferase 39 U/L (7-40); Albumin 3.6 g/dL (3.2-4.8); Alkaline Phosphatase 84 U/L (46-116); Aspartate Aminotransferase 35 U/L (13-40); Sodium 141 mmol/L (136-145)
[2024-12-12 01:12] LABS: Chloride 91 mmol/L (98-107); Potassium 5.4 mmol/L (3.5-5.1)
[2024-12-12 01:13] LABS: Anion Gap 9.99999 (5-15); Blood Urea Nitrogen 42 mg/dL (9-23); Carbon Dioxide > 40 mmol/L (20-31); Glucose 185 mg/dL (74-106)
[2024-12-12] MEDS: SODIUM CHLORIDE 0.9% 500 ML IV ONE (01:54)
[2024-12-12] MEDS: SODIUM ZIRCONIUM CYCL 10 GM PAK PO ONE (02:11)
[2024-12-12] MEDS: MAGNESIUM SULFATE 1GM/100ML 100 ML IV ONE (02:11)
--- NOTE | 2024-12-12 04:40 | ECG ---
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
[2024-12-12 08:22] LABS: Base Excess 11.4 mmol/L (-2.0-3.0)
[2024-12-12] MEDS: FUROSEMIDE 20 MG/2 ML VIAL IV SCH (09:18)
--- NOTE | 2024-12-12 09:53 | DVHPN2 ---
Consult Progress Note Date Seen: December 12, 2024 Objective vital signs Vital Sign Date Time Temp Pulse Resp B/P (MAP) Pulse Ox O2 Delivery O2 Flow Rate FiO2 12/12/24 09:22 140 24 81/57 (65) 100 30 12/12/24 08:00 Mechanical Ventilator+ 12/12/24 05:15 99.1 99.1 12/11/24 10:30 5.0 Total Intake and Output 12/11/24 12/11/24 12/12/24 15:00 23:00 07:00 Intake Total 192.50 ml 930.8 ml Output Total 950 ml Balance 192.50 ml -19.2 ml medications Current Medications Medications Dose Ordered Sig/Saroj Route Start Time Stop Time Status Last Admin Dose Admin Levofloxacin/ Dextrose 100 ml @ 50 mls/hr Q24H IV 12/10/24 13:45 12/10/24 18:13 50 MLS/HR Ceftriaxone Sodium 50 ml @ 100 mls/hr DAILY IV 12/11/24 10:00 12/12/24 09:17 100 MLS/HR Azithromycin 250 ml @ 125 mls/hr DAILY IV 12/11/24 10:00 12/11/24 12:03 125 MLS/HR Albuterol 2.5 mg Q6H NEB 12/10/24 17:45 12/12/24 06:09 2.5 MG Ipratropium [place] 0.5 mg Q6H NEB 12/10/24 17:45 12/12/24 06:09 0.5 MG Pantoprazole Sodium 40 mg DAILY IV 12/11/24 10:00 12/12/24 09:17 40 MG Sodium Chloride 10 ml Q8HR IV 12/10/24 22:00 12/12/24 05:18 10 ML Docusate Sodium 100 mg BIDPRN PRN PO 12/10/24 17:45 Acetaminophen 650 mg Q6HP PRN PO 12/10/24 17:45 Acetaminophen/ Hydrocodone Bitart 1 tab Q4HP PRN PO 12/10/24 17:45 12/11/24 06:18 1 TAB Nitroglycerin 0.4 mg Q5MINP PRN SL 12/10/24 17:45 Morphine Sulfate 2 mg Q30M PRN IV 12/10/24 17:45 Enoxaparin Sodium 60 mg Q12HR SC 12/11/24 22:00 Metoprolol Succinate 25 mg DAILY PO 12/12/24 10:00 Future Hold Furosemide 20 mg DAILY IV 12/12/24 10:00 Norepinephrine Bitartrate 250 ml @ 3.75 mls/hr Q24H IV 12/11/24 16:45 12/12/24 04:16 26.25 MLS/HR Midazolam HCl 50 ml @ 1 mls/hr Q24H IV 12/11/24 16:45 12/12/24 09:17 5 MLS/HR Fentanyl Citrate 250 ml @ 2.5 mls/hr Q24H IV 12/11/24 16:45 12/11/24 16:50 2.5 MLS/HR Methylprednisolone Sodium Succinate 62.5 mg Q8HR IV 12/11/24 22:00 12/12/24 05:18 62.5 MG Examination: GENERAL:Abnormal, LUNGS:Abnormal (Endotracheally intubated), CVS:Abnormal (Sinus tachycardia 130s bpm. On single-vasopressor), NEURO:Abnormal (Chemically sedated) laboratory and microbiology Laboratory Tests 12/12/24 00:25 12/11/24 23:58 Test 12/11/24 23:58 Range/Units Serum Glucose 185 #H 74-106 mg/dL Problem List/Assessment/Plan Problem List/Assessment/Plan Sepsis with PNA COPD exacerbation Severe respiratory acidosis Acute hypoxic respiratory failure Acute kidney injury with hyperkalemia Pulmonary arterial hypertension, moderate to severe NSTEMI, likely type 2 secondary to above Chronic compensated HFmrEF Hx of PE on Eliquis Prediabetes Hx hypertension Borderline thrombocytopenia Plan/Recommendation (Dr. Ortega) Transthoracic echocardiogram revealed LVEF 45-50%. D-septum was in favor of component of PAH. RVSP 60 mmHg. Transition to Lovenox prophylaxis given reported oral/nasal bleed. Transition to oral lasix when appropriate. Continue Pulmonology recommendations. The patient can benefit from tertiary care center work-up for PAH. Obtain BMP, Mg levels, influenza and COVID-19 swabs. There is no further cardiac work-up indicated at this time. Kindly call if in need to re-consult. Thank you for allowing us to participate in this patient's care. Critical care time: 30 min. This medical document was created using an electronic medical record system with voice recognition software and computerized dictation system. Although this document has been carefully reviewed, there might still be some phonetic and typographical errors. Occasional wrong-word or ``sound-alike substitutions may have occurred due to the inherent limitations of voice recognition software. These areas are purely typographical due to imperfections of the software programs and do not reflect any compromise in the patient's medical care. Please read the chart carefully and recognize, using context, where these substitutions have occurred. Plan discussed with: Other Date of Service: December 12, 2024 Billing Provider: MAURI HARRIS Cardiology Common Codes: [id number] CARE 30-74 MIN MAURI HARRIS December 12, 2024 09:53
[2024-12-12] MEDS ORDERED: METOPROLOL SUCCINATE XL 50 MG TAB PO SCH (10:00)
[2024-12-12] MEDS: LIDOCAINE 1% (LOCAL ANESTH.) PF 5ml SDV ID ONE (10:08)
[2024-12-12 10:38] LABS: Potassium 4.6 mmol/L (3.5-5.1); Sodium 142 mmol/L (136-145)
[2024-12-12 10:39] LABS: Anion Gap 8 (5-15); Calcium 8.7 mg/dL (8.7-10.4)
[2024-12-12 10:44] LABS: BUN/Creatinine Ratio 35.7 (10.0-20.0)
[2024-12-12 10:45] LABS: Magnesium 2.2 mg/dL (1.6-2.6)
[2024-12-12 10:51] LABS: Blood Urea Nitrogen 35 mg/dL (9-23); Carbon Dioxide 39 mmol/L (20-31); Chloride 95 mmol/L (98-107); Glucose 187 mg/dL (74-106)
--- NOTE | 2024-12-12 12:06 | DVHSR ---
APPROVED REPORT EXAM: Two-dimensional and M-mode echocardiogram with Doppler and color Doppler. Blood Pressure: 113/82 mmHg INDICATION Elevated trop RISK FACTORS Height: 5'9", Weight: 142 DIMENSIONS LVDd3.5 (3.8-5.7cm)LA (2D)3.2 (1.9-4.0cm)Aortic Root4.4 (2.0-3.7cm) LVDs2.9 (2.5-4.0cm)LA (MM) (1.9-4.0cm)Aortic Cusp Exc2.4 (1.5-2.0cm) EF (%) 40.0 (55-70%)Rt. Atrium5.2 (1.9-4.0cm)Asc. Aorta cm IVSd1.4 (0.7-1.1cm)RV (D) (1.8-2.4cm) PWd1.1 (0.7-1.1cm) Mitral Valve MitralMitral Stenosis E wave0.38m/sMV Mean GR.mmHg A wave0.66m/sMV Peak GR.mmHg E/A ratio0.62D MVAcm2 DECEL [id number] 1/2 Timems Aortic Valve Aortic ValveAortic Stenosis V10.53m/Max Mean GR.1mmHg V20.80m/Max Peak GR.3mmHg LVOT Diameter2.4 (1.8-2.4cm)Doppler AVA3.00cm2 Tricuspid Valve TR Velocity3.34m/s [id number] Other Information Quality : LimitedRhythm : Technically limited study due to body habitus, patient sitting up, altered and uncooperative. Conclusion Left ventricle: Left ventricle was normal size. LVEF was around 45-50%. D shaped septum was in fav or of component of pulmonary hypertension Right ventricle was dilated with mildly reduced systolic function. Left atrium was normal size. Rig ht atrium was dilated. Aortic valve: Aortic valve was not well visualized. There was no aortic insufficiency/stenosis. The re was trace mitral regurgitation. There was [id number] tricuspid regurgitation. There was tr veronica pulmonary valve insufficiency. IVC was dilated. Right ventricular systolic pressure was assessed around 60 mm Hg. Compatible with pulmonary hypertension
[2024-12-12 12:10] LABS: Rapid Influenza A Negative (Negative); Rapid Influenza B Negative (Negative)
[2024-12-12] MEDS ORDERED: ALBUAER3 INH (14:10)
--- NOTE | 2024-12-12 15:25 | DVHPN2 ---
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 Patient has remained intubated and sedated but currently FiO2 of 30% only with a PEEP of five. Changes from previous H/P or p: No Changes Objective Vitals Vital Signs Date Time Temp Pulse Resp B/P (MAP) Pulse Ox O2 Delivery O2 Flow Rate FiO2 12/12/24 14:35 135 24 100/71 (81) 100 12/12/24 14:00 30 12/12/24 14:00 Mechanical Ventilator+ 12/12/24 12:05 97.7 97.7 12/11/24 10:30 5.0 Intake/Output Intake and Output 12/12/24 07:00 Intake Total 1158.80 ml Output Total 950 ml Balance 208.80 ml Intake Oral 60 ml IV Total 1098.80 ml Output Urine Total 950 ml # Voids 2 Exam HEENT pupils are reactive Neck is supple CV is S1-S2 regular rate and rhythm Has been diminished breath sounds bilateral bases GI posterior bowel sound 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 Medications Current Medications Medications Dose Ordered Sig/Saroj Route Start Time Stop Time Status Last Admin Dose Admin Levofloxacin/ Dextrose 100 ml @ 50 mls/hr Q24H IV 12/10/24 13:45 12/12/24 14:08 50 MLS/HR Ceftriaxone Sodium 50 ml @ 100 mls/hr DAILY IV 12/11/24 10:00 12/12/24 09:17 100 MLS/HR Azithromycin 250 ml @ 125 mls/hr DAILY IV 12/11/24 10:00 12/12/24 10:10 125 MLS/HR Albuterol 2.5 mg Q6H NEB 12/10/24 17:45 12/12/24 11:39 2.5 MG Ipratropium [place] 0.5 mg Q6H NEB 12/10/24 17:45 12/12/24 11:39 0.5 MG Pantoprazole Sodium 40 mg DAILY IV 12/11/24 10:00 12/12/24 09:17 40 MG Sodium Chloride 10 ml Q8HR IV 12/10/24 22:00 12/12/24 14:08 10 ML Docusate Sodium 100 mg BIDPRN PRN PO 12/10/24 17:45 Acetaminophen 650 mg Q6HP PRN PO 12/10/24 17:45 Acetaminophen/ Hydrocodone Bitart 1 tab Q4HP PRN PO 12/10/24 17:45 12/11/24 06:18 1 TAB Nitroglycerin 0.4 mg Q5MINP PRN SL 12/10/24 17:45 Morphine Sulfate 2 mg Q30M PRN IV 12/10/24 17:45 Furosemide 20 mg DAILY IV 12/12/24 10:00 Norepinephrine Bitartrate 250 ml @ 3.75 mls/hr Q24H IV 12/11/24 16:45 12/12/24 04:16 26.25 MLS/HR Midazolam HCl 50 ml @ 1 mls/hr Q24H IV 12/11/24 16:45 12/12/24 09:17 5 MLS/HR Fentanyl Citrate 250 ml @ 2.5 mls/hr Q24H IV 12/11/24 16:45 12/12/24 13:23 12.5 MLS/HR Methylprednisolone Sodium Succinate 62.5 mg Q8HR IV 12/11/24 22:00 12/12/24 14:08 62.5 MG Enoxaparin Sodium 40 mg DAILY SC 12/13/24 10:00 UNV Sodium Chloride 10 ml QSHIFT@10,22 IV 12/12/24 22:00 Laboratory Results Laboratory Tests 12/12/24 00:25 12/12/24 10:10 Chemistry Test 12/11/24 23:58 12/12/24 10:10 Albumin 3.6 g/dL (3.2-4.8) Calcium Level 9.0 mg/dL (8.7-10.4) 8.7 mg/dL (8.7-10.4) Magnesium Level 1.7 mg/dL (1.6-2.6) 2.2 mg/dL (1.6-2.6) Total Protein 6.0 g/dL (5.7-8.2) Coagulation Test 12/11/24 17:59 Prothrombin Time 10.9 sec (9.3-11.8) Prothrombin Time INR 1.03 (0.9-1.15) Activated Partial Thromboplast Time 23.9 SEC (24.5-34.5) L Cardiac Markers Test 12/11/24 23:58 B-Type Natriuretic Peptide 581.32 pg/mL (0-100) LFT Test 12/11/24 23:58 Alanine Aminotransferase (ALT) 39 U/L (7-40) Alkaline Phosphatase 84 U/L (46-116) Aspartate Amino Transferase (AST) 35 U/L (13-40) Total Bilirubin 1.0 mg/dL (0.2-1.0) Urinalysis Test 12/10/24 13:10 Urine Color Colorless (Yellow) Urine Clarity Clear (Clear) Urine pH 5.5 (5.0-9.0) Urine Specific [place] 1.008 (1.001-1.035) Urine Protein Negative (Negative) Urine Ketones Negative (Negative) Urine Blood Negative /uL (Negative) Urine Nitrite Negative (Negative) Urine Bilirubin Negative (Negative) Urine Urobilinogen Normal mg/dL (Negative) Urine Leukocyte Esterase Negative /uL (Negative) Urine RBC <1 /hpf (0 - 3) Urine Microscopic WBC < 1 /HPF (0-3) Urine Squamous Epithelial Cells None seen /hpf (<5) Urine Bacteria Few /hpf (None Seen) H Urine Glucose Normal mg/dL (Normal) Blood Gas Results Test 12/11/24 18:15 12/12/24 07:25 Arterial Blood pH 7.473 (7.350-7.450) 7.531 (7.350-7.450) FiO2 % 100.0 30.0 Microbiology Microbiology Date/Time Source Procedure Growth Status 12/11/24 18:30 Sputum Expectorated Sputum Gram Stain Pending Resulted 12/11/24 18:30 Sputum Expectorated Sputum Respiratory Culture - Preliminary Resulted 12/10/24 20:35 Nose MRSA Screen - Final Complete Assessment/Plan Assessment/Plan 59-year-old male with a known history of COPD, congestive heart failure, history of pulmonary embolism on Eliquis, was recently hospitalized at [facility] was discharged on December 09, presented to the hospital here with chest pain shortness breath found to have Acute COPD exacerbation. This morning patient was noted to be in tripod position eventually staff to be and has been gas was done which shows acute hypoxic and hypercapnic respiratory failure. Patient was offered BiPAP but he refused eventually elective intubation was done. 1. Acute hypoxic and hypercapnic respiratory failure secondary to acute COPD exacerbation currently intubated and sedated 2. NSTEMI suspected type 2 3. Acute on chronic congestive heart failure exacerbation unspecified 4. Acute COPD exacerbation 5. History of pulmonary embolism currently on therapeutic Lovenox 6. Hypertension -patient remains critical prognosis remained guarded, continue med nebs, IV Solu-Medrol, therapeutic Lovenox -daily ABG chest x-ray ventilator support, pulmonary consultation and Cardiology consultation. Plan discussed with: Other My Orders Orders - SURINDER MENENDEZ MD Procedure Category Date Status Time * Picc Line Consult CONS 12/11/24 Transmitted 16:52 Methylprednisolone PHA 12/11/24 In Process Sod Succ (Solu Medrol 22:00 Communication Order ORDERS 12/11/24 Transmitted 18:36 Change Dressing Prn RONNIE 12/12/24 In Process 10:43 Sodium Chloride Lock PHA 12/12/24 In Process (Saline Lock Ns) 22:00 May Draw Blood From RONNIE 12/12/24 In Process Picc 10:43 Ok To Use Picc RONNIE 12/12/24 In Process 10:43 Change Picc Dressing [facility] 12/12/24 In Process Q7 Days 10:43 Date of Service: December 12, 2024 Billing Provider: SURINDER MENENDEZ MD Common Visit Codes: [id number] INP/OBS CARE(HIGH) SURINDER MENENDEZ MD December 12, 2024 15:25
--- NOTE | 2024-12-12 18:19 | DVHINCON2 ---
Date of service: December 11, [address] Skelton Reason for Consultation Acute respiratory failure History of Present Illness History Source: Patient, RN Notes, MD Notes Exam Limitations: Clinical condition HPI Patient is a 59-year old gentleman with multiple medical conditions including COPD, CHF and PE who presented with shortness of breath and chest pain. Was seen in the emergency room where chest x-ray findings were consistent with pneumonia and the patient was admitted for IV antibiotics. While in the ER, he was found to be increasingly obtunded and ABG revealed hypercapnia with a CO2 of 150 and he was subsequently intubated and placed on mechanical ventilation. Pulmonology was consulted to assist in management. Home Meds Reported Medications Ergocalciferol (Vitamin D) 50,000 Unit Cap, 1 CAP PO QWEEKLY for 84 Days, #12 12/12/24 Apixaban Base (ELIQUIS) 2.5 Mg Tab, 1 TAB PO BID for 30 Days, #60 12/12/24 Albuterol Sulfate (VENTOLIN MDI) 90 Mcg Ih, 2 PUFF INH TID PRN for SHORTNESS OF BREATH/WHEEZING, INH 12/12/24 Gabapentin (Gabapentin) 100 Mg Cap, 1 CAP PO TID for 30 Days, #90 12/12/24 Ibuprofen Micronized (Ibuprofen) 400 Mg Tab, 1 TAB PO BID for 30 Days, #60 12/12/24 Acetaminophen (Acetaminophen Extra Stren) 500 Mg Tab, 2 TAB PO Q6HPRN PRN for ANGINA for 30 Days, #240 12/12/24 Aspirin (Aspirin Low Dose) 81 Mg Chw, 1 TAB PO DAILY for 30 Days, #30 12/12/24 Atorvastatin Calcium (ATORVASTATIN CALCIUM) 40 Mg Tab, 1 TAB PO DAILY for 30 Days, #30 12/12/24 Furosemide (Furosemide) 20 Mg Tab, 1 TAB PO DAILY for 30 Days, #30 12/12/24 Losartan Potassium (Losartan Potassium) 50 Mg Tab, 1 TAB PO DAILY for 30 Days, #30 12/12/24 Metoprolol Succinate (Metoprolol Succinate Er) 25 Mg Tab, 1 TAB PO DAILY for 30 Days, #30 12/12/24 Prednisone (Prednisone) 20 Mg Tab, 1 TAB PO BID for 30 Days, #60 12/12/24 Past Medical History Cardiac: CHF Pulmonary: COPD Central Nervous System: No pertinent Hx GI: No pertinent Hx Hemotology/Oncology: No pertinent Hx Hepatobiliary: No pertinent Hx Psychiatric: No pertinent Hx Musculoskeletal: No pertinent Hx Rheumotologic: No pertinent Hx Infectious Disease: No peritnent Hx ENT: No pertinent Hx Renal/: No pertinent Hx Endocrine: No pertinent Hx Dermatology: No pertinent Hx Past Surgical History: No pertinent Hx Family History: No pertinent Hx Patient Family History: Patient reports no known family medical history. Smoker: No Hx (Negative) Alocohol: None Drugs: None Lives with: With family Domestic Violence: Neg Review of Systems Constitutional: No symptom reported Ears, Nose, & Throat: No symptom reported Eyes: No symptom reported Pulmonary/Respiratory: Dyspnea Cardiovascular: Chest Pain Gastrointestinal: No symptom reported Genitourinary: No symptom reported Musculoskeletal: No symptom reported Skin: No symptom reported Psychiatric: No symptom reported Endocrine: No symptom reported Hemotologic/Lymphatic: No symptom reported H&P Exam Vital Signs Vital Signs Date Time Temp Pulse Resp B/P (MAP) Pulse Ox O2 Delivery O2 Flow Rate FiO2 12/12/24 16:00 24 100 Mechanical Ventilator+ 30 30 12/12/24 16:00 87 12/12/24 15:42 12/12/24 12:05 97.7 97.7 12/11/24 10:30 5.0 General Appeara: Well developed, Well nourished, Normal Appearance Head Exam: Normal inspection Neck Exam: Normal inspection, Non-tender, Normal alignment Eye Exam: bilateral eye Normal inspection, bilateral eye PERRL, bilateral eye EOMI Ear Exam: bilateral ear Auricle normal, bilateral ear Canal normal, bilateral ear TM normal Nasal Exam: Normal inspection Mouth: Normal Inspection Pulmonary/Respiratory: Normal inspection, Normal breath sounds, Chest non- tender, Lungs clear Cardiovascular/Chest: Normal inspection, Regular rate, Normal Rhythm Peripheral Pulses: 4+ Radial (R), 4+ Radial (L), 4+ Brachial (R), 4+ Brachial (L) Abdominal Exam: Normal bowel sounds Labs/Xrays Labs Test 12/12/24 11:31 12/12/24 10:10 12/12/24 07:25 12/12/24 01:15 Range/Units Influenza Type A Antigen Negative Negative Influenza Type B Antigen Negative Negative Sodium Level 142 136-145 mmol/L Potassium Level 4.6 3.5-5.1 mmol/L Chloride Level 95 L 98-107 mmol/L Carbon Dioxide Level 39 H 20-31 mmol/L Anion Gap 8 5-15 Blood Urea Nitrogen 35 H 9-23 mg/dL Creatinine 0.98 0.700-1.30 mg/dL Glomerular Filtration Rate Calc 89 >90 mL/min BUN/Creatinine Ratio 35.7 H 10.0-20.0 Serum Glucose 187 H 74-106 mg/dL Calcium Level 8.7 8.7-10.4 mg/dL Magnesium Level 2.2 1.6-2.6 mg/dL Blood Gas Specimen Type Arterial Blood Gas Sample Site Right radial Blood Gas Patient Temperature 37.0 Arterial Blood Date Drawn [id number] Arterial Blood pH 7.531 H 7.350-7.450 Arterial Blood Partial Pressure CO2 43.3 35.0-48.0 mmHg Arterial Blood Partial Pressure O2 71.2 L 83.0-108.0 mmHg Arterial Blood HCO3 35.5 H 21.0-28.0 mmol/L Arterial Blood Oxygen Saturation 94.9 94.0-98.0 % Arterial Blood Base Excess 11.4 H -2.0-3.0 mmol/L Arterial Blood Oxyhemoglobin 94.4 94.0-98.0 % Arterial Blood Carboxyhemoglobin 0.4 L 0.5-1.5 % Arterial Blood Methemoglobin 0.1 0.0-1.5 % Kem Test Modified Blood Gas Total Hemoglobin 14.90 13.5-17.5 g/dL Blood Gas Set Respiration Rate 24.0 Blood Gas Modality Vent - ac FiO2 % 30.0 Blood Gas Tidal Volume 500.0 Blood Gas PEEP or CPAP 5.0 Lactic Acid Level 3.1 *H 0.4-2.0 mmol/L Test 12/12/24 00:25 12/11/24 23:58 12/11/24 23:57 12/11/24 18:15 Range/Units White Blood Count 8.7 4.4-10.8 10^3/uL Red Blood Count 4.33 L 4.5-5.90 10^6/uL Hemoglobin 14.1 13.5-17.5 g/dL Hematocrit 42.8 # 41.0-53.0 % Mean Corpuscular Volume 98.9 80.0-100.0 fL Mean Corpuscular Hemoglobin 32.6 H 28.0-32.0 pg Mean Corpuscular Hemoglobin Concent 33.0 32.0-36.0 g/dL Red Cell Distribution Width 14.3 11.8-14.3 % Platelet Count 136 L 140-450 10^3/uL Mean Platelet Volume 8.3 6.9-10.8 fL Neutrophils (%) (Auto) 85.3 H 37.0-80.0 % Lymphocytes (%) (Auto) 3.3 L 10.0-50.0 % Monocytes (%) (Auto) 11.4 0.0-12.0 % Eosinophils (%) (Auto) 0.0 0.0-7.0 % Basophils (%) (Auto) 0.0 0.0-2.0 % Neutrophils # (Auto) 7.4 1.6-8.6 10 ^3/uL Lymphocytes # (Auto) 0.3 L 0.4-5.4 10 ^3/uL Monocytes # (Auto) 1.0 0-1.3 10 ^3/uL Eosinophils # (Auto) 0 0-0.8 10 ^3/uL Basophils # (Auto) 0 0-0.2 10 ^3/uL Nucleated Red Blood Cells 0.1 % Total Bilirubin 1.0 0.2-1.0 mg/dL Aspartate Amino Transferase (AST) 35 13-40 U/L Alanine Aminotransferase (ALT) 39 7-40 U/L Alkaline Phosphatase 84 46-116 U/L B-Type Natriuretic Peptide 581.32 0-100 pg/mL Total Protein 6.0 5.7-8.2 g/dL Albumin 3.6 3.2-4.8 g/dL POC Glucose 178 H 70-106 mg/dl Blood Gas Critical Value Read Back Yes Blood Gas Notified Whom jose luis Skelton md Blood Gas Notified Time [id number] Blood Gas Notified By Test 12/11/24 17:59 12/11/24 15:08 12/11/24 14:05 12/11/24 10:07 Range/Units Prothrombin Time 10.9 9.3-11.8 sec Prothrombin Time INR 1.03 0.9-1.15 Activated Partial Thromboplast Time 23.9 L 24.5-34.5 SEC Venous Blood pH 7.185 *L 7.320-7.430 Venous Blood pCO2 at Patient Temp 152.3 *H 38.0-54.0 mmHg Venous Blood pO2 at Patient Temp < 36.5 23.0-48.0 mmHg Venous Blood HCO3 56.2 H 22.0-29.0 mmol/L Venous Blood Base Excess 19.9 H -2.0-3.0 mmol/L Blood Gas Liter Flow 4.00 Urine Opiates Screen Pos NEGATIVE Urine Fentanyl Screen Neg NEGATIVE Urine Barbiturates Screen Neg NEGATIVE Urine Phencyclidine Screen Neg NEGATIVE Urine Amphetamines Screen Neg NEGATIVE Urine Benzodiazepines Screen Neg NEGATIVE Urine Cocaine Screen Neg NEGATIVE Urine Cannabinoids Screen Neg NEGATIVE Hemoglobin A1c 6.2 H <5.7 % A1C Troponin I High Sensitivity 123 *H </=54 ng/L Triglycerides Level 51 < 150 mg/dL Cholesterol Level 133 < 200 mg/dL LDL Cholesterol 40 < 100 mg/dL HDL Cholesterol 73 H 40-59 mg/dL Thyroid Stimulating Hormone (TSH) 0.41 L 0.55-4.78 uIU/mL Test 12/10/24 13:10 12/10/24 13:04 Range/Units Urine Color Colorless Yellow Urine Clarity Clear Clear Urine pH 5.5 5.0-9.0 Urine Specific [place] 1.008 1.001-1.035 Urine Protein Negative Negative Urine Ketones Negative Negative Urine Blood Negative Negative /uL Urine Nitrite Negative Negative Urine Bilirubin Negative Negative Urine Urobilinogen Normal Negative mg/dL Urine Leukocyte Esterase Negative Negative /uL Urine RBC <1 0 - 3 /hpf Urine Microscopic WBC < 1 0-3 /HPF Urine Squamous Epithelial Cells None seen <5 /hpf Urine Bacteria Few H None Seen /hpf Urine Glucose Normal Normal mg/dL Differential Total Cells Counted 100.0 100 Neutrophils % (Manual) 66 37.0-80.0 Band Neutrophils % (Manual) 1 Lymphocytes % (Manual) 17 10.0-50.0 Monocytes % (Manual) 15 H 0-12 Eosinophils % (Manual) 1 0-7 Basophils % (Manual) 0 0.0-2.0 Metamyelocytes % (manual) 0 Myelocytes % (Manual) 0 Promyelocytes % (Manual) 0 Blast Cells % (Manual) 0 Reactive Lymphocytes 0 Platelet Estimate Decreased Stomatocytes Few D-Dimer, Quantitative < 0.19 0.0-0.49 mg/L FEU Microbiology Date/Time Source Procedure Growth Status 12/11/24 18:30 Sputum Expectorated Sputum Gram Stain - Final Resulted 12/11/24 18:30 Sputum Expectorated Sputum Respiratory Culture - Preliminary Resulted 12/10/24 20:35 Nose MRSA Screen - Final Complete Assessment/Plan Plan Impression Acute hypoxemic respiratory failure Acute decompensated heart failure Acute COPD exacerbation Pneumonia Patient seen and examined Events On mechanical ventilation S/p intubation PEEP 5, FiO2 100% Labs and imaging reviewed Chest x-ray shows bilateral infiltrates consistent with pneumonia ABG reviewed Management Vent support Titrate to maintain sats 90% or above Sedation for vent synchrony Antibiotics Bronchodilators Monitor renal function Monitor electrolytes Supplement as needed Pressors as needed for hemodynamic support To maintain a mean arterial pressure of 65 mmHg F/u cardiology DVT prophylaxis Critical care time 35 minutes Plan discussed with: Other (Rn) BRANDIN TORRES MD December 12, 2024 18:19
--- NOTE | 2024-12-12 18:21 | DVHPN2 ---
Progress Note - Dictate Date Seen: December 12, 2024 Medical Necessity Reason Pt with a Central, PICC or Fol: Yes The following are medically ne: Central Line vital signs Vital Sign Date Time Temp Pulse Resp B/P (MAP) Pulse Ox O2 Delivery O2 Flow Rate FiO2 12/12/24 16:00 24 100 Mechanical Ventilator+ 30 30 12/12/24 16:00 87 12/12/24 15:42 12/12/24 12:05 97.7 97.7 12/11/24 10:30 5.0 Total Intake and Output 12/11/24 12/11/24 12/12/24 15:00 23:00 07:00 Intake Total 192.50 ml 966.3 ml Output Total 950 ml Balance 192.50 ml 16.3 ml medications Current Medications Medications Dose Ordered Sig/Saroj Route Start Time Stop Time Status Last Admin Dose Admin Levofloxacin/ Dextrose 100 ml @ 50 mls/hr Q24H IV 12/10/24 13:45 12/12/24 14:08 50 MLS/HR Ceftriaxone Sodium 50 ml @ 100 mls/hr DAILY IV 12/11/24 10:00 12/12/24 09:17 100 MLS/HR Azithromycin 250 ml @ 125 mls/hr DAILY IV 12/11/24 10:00 12/12/24 10:10 125 MLS/HR Albuterol 2.5 mg Q6H NEB 12/10/24 17:45 12/12/24 11:39 2.5 MG Ipratropium [place] 0.5 mg Q6H NEB 12/10/24 17:45 12/12/24 11:39 0.5 MG Pantoprazole Sodium 40 mg DAILY IV 12/11/24 10:00 12/12/24 09:17 40 MG Sodium Chloride 10 ml Q8HR IV 12/10/24 22:00 12/12/24 14:08 10 ML Docusate Sodium 100 mg BIDPRN PRN PO 12/10/24 17:45 Acetaminophen 650 mg Q6HP PRN PO 12/10/24 17:45 Acetaminophen/ Hydrocodone Bitart 1 tab Q4HP PRN PO 12/10/24 17:45 12/11/24 06:18 1 TAB Nitroglycerin 0.4 mg Q5MINP PRN SL 12/10/24 17:45 Morphine Sulfate 2 mg Q30M PRN IV 12/10/24 17:45 Furosemide 20 mg DAILY IV 12/12/24 10:00 Norepinephrine Bitartrate 250 ml @ 3.75 mls/hr Q24H IV 12/11/24 16:45 12/12/24 04:16 26.25 MLS/HR Midazolam HCl 50 ml @ 1 mls/hr Q24H IV 12/11/24 16:45 12/12/24 09:17 5 MLS/HR Fentanyl Citrate 250 ml @ 2.5 mls/hr Q24H IV 12/11/24 16:45 12/12/24 13:23 12.5 MLS/HR Methylprednisolone Sodium Succinate 62.5 mg Q8HR IV 12/11/24 22:00 12/12/24 14:08 62.5 MG Enoxaparin Sodium 40 mg DAILY SC 12/13/24 10:00 UNV Sodium Chloride 10 ml QSHIFT@10,22 IV 12/12/24 22:00 laboratory and microbiology Laboratory Tests 12/12/24 10:10 12/12/24 00:25 Test 12/12/24 10:10 Range/Units Serum Glucose 187 H 74-106 mg/dL Assessment/Plan Impression Acute hypoxemic respiratory failure Acute decompensated heart failure Acute COPD exacerbation Pneumonia Patient seen and examined Events On mechanical ventilation S/p intubation PEEP 5, FiO2 100% Labs and imaging reviewed Chest x-ray shows bilateral infiltrates consistent with pneumonia ABG reviewed Management Vent support Titrate to maintain sats 90% or above Sedation for vent synchrony Continue antibiotics F/u cultures Bronchodilators Steroids for COPD management Monitor renal function Monitor electrolytes Supplement as needed Pressors as needed for hemodynamic support To maintain a mean arterial pressure of 65 mmHg Obtain ultrasound of the lower extremities F/u cardiology DVT prophylaxis Critical care time 35 minutes Plan discussed with: Other (Rn) BRANDIN TORRES MD December 12, 2024 18:21
[2024-12-12] MEDS: SODIUM CHLOR 0.9% PF (SALINE LOCK) 10ML VIAL/SYR IV SCH (22:28)
[2024-12-13] VITALS (107 sets, daily range): BP systolic 89–135; BP diastolic 63–103; PULSE 79–160; RESP 20–29; TEMP 97.3–99.5; O2SAT 90–100
[2024-12-13 04:10] LABS: Basophils # (auto) 0 10 ^3/uL (0-0.2); Eosinophils # (auto) 0 10 ^3/uL (0-0.8); Hematocrit 40.1 % (41.0-53.0); Hemoglobin 13.4 g/dL (13.5-17.5); Lymphocytes # (auto) 0.4 10 ^3/uL (0.4-5.4); Lymphocytes % (auto) 5.7 % (10.0-50.0); Mean Corpuscular Hemoglobin 32.7 pg (28.0-32.0); Mean Corpuscular Hgb Conc. 33.5 g/dL (32.0-36.0); Mean Corpuscular Volume 97.6 fL (80.0-100.0); Monocytes # (auto) 0.6 10 ^3/uL (0-1.3); Monocytes % (auto) 8.2 % (0.0-12.0); Neutrophils # (auto) 6.1 10 ^3/uL (1.6-8.6); Neutrophils % (auto) 86.1 % (37.0-80.0); Platelet Count (auto) 157 10^3/uL (140-450); Red Blood Cells 4.11 10^6/uL (4.5-5.90); Red Cell Distribution Width 14.3 % (11.8-14.3); White Blood Cell 7.1 10^3/uL (4.4-10.8)
--- NOTE | 2024-12-13 04:12 | DVH ---
Exam: US US GUIDED VASCULAR ACCESS Date: 12/12/2024 09:36 AM Clinical History: PICC Insertion Comparison: None Findings: Targeted sonographic evaluation of the basilic vein was obtained utilizing grayscale and color Doppl er imaging. IMPRESSION: Sonographic assistance for central line placement. Please refer to procedural report for detailed fin dings.
[2024-12-13 04:21] LABS: Alanine Aminotransferase 29 U/L (7-40); Alkaline Phosphatase 63 U/L (46-116); Anion Gap 10 (5-15); Aspartate Aminotransferase 34 U/L (13-40); BUN/Creatinine Ratio 37.9 (10.0-20.0); Bilirubin, Total 1.1 mg/dL (0.2-1.0); Potassium 4.2 mmol/L (3.5-5.1); Sodium 142 mmol/L (136-145)
--- NOTE | 2024-12-13 04:21 | DVH ---
INDICATION: RESPIRATORY FAILURE TECHNIQUE: Single frontal view of the chest was obtained COMPARISON: XY CHEST PORTABLE on DOS: 12/11/24, XY CHEST XRAY 1 VIEW on DOS: 12/11/24, XY CHEST PORTABL E on DOS: 12/11/24, XY CHEST PORTABLE on DOS: 12/10/24, XY CHEST PORTABLE on DOS: 12/11/24 FINDINGS: Lines and Tubes: Endotracheal tube 5-6 cm above the rosalva. Endotracheal tube just below the left marino phragm recommend advancement 4-5 inches. Lungs: No focal consolidation. Pleura: No effusion. No pneumothorax. Cardiomediastinal contours: Unremarkable Bones: No acute osseous abnormality. IMPRESSION: 1. Endotracheal tube 5-6 cm above the rosalva. 2. Enteric tube just below the left diaphragm recommend advancement 4-5 inches. 3. No change in the pulmonary findings when compared with the study done at 8:17 p.m. On 12/11/2024
[2024-12-13 04:36] LABS: Albumin 3.1 g/dL (3.2-4.8); Blood Urea Nitrogen 33 mg/dL (9-23); Calcium 8.7 mg/dL (8.7-10.4); Carbon Dioxide 35 mmol/L (20-31); Chloride 97 mmol/L (98-107); Glucose 176 mg/dL (74-106); Total Protein 5.2 g/dL (5.7-8.2)
[2024-12-13 07:20] LABS: Base Excess 4.1 mmol/L (-2.0-3.0)
[2024-12-13] MEDS: SODIUM CHLORIDE 0.9% 500 ML IV ONE ×2 (07:24→10:43)
[2024-12-13] MEDS ORDERED: VANCOMYCIN PER PHARMACY 0 MG IV SCH (10:30)
[2024-12-13] MEDS: ENOXAPARIN SOD 40 MG/0.4 ML SYRINGE SC SCH (10:40)
[2024-12-13] MEDS: methylPREDNISolone SOD SUCC 40 MG/ML VL IV ONE (10:51)
[2024-12-13] MEDS: CEFEPIME 1GM/ 50ML 50 ML IV ONE (10:52)
[2024-12-13 11:16] LABS: Free T4 (Free Thyroxine) 0.85 ng/dL (0.89-1.76)
[2024-12-13 11:17] LABS: Free T3 1.58 pg/mL (2.3-4.2)
[2024-12-13] MEDS: LEVALBUTEROL HCL 1.25 MG/3 ML NEB NEB SCH (11:43)
[2024-12-13] MEDS: IPRATROPIUM BROM 0.5 MG/2.5ML INH SOL NEB SCH (11:43)
[2024-12-13] MEDS: CEFEPIME 1GM/ 50ML 50 ML IV SCH (13:01)
--- NOTE | 2024-12-13 16:55 | DVHPNRES ---
Progress Note Date Seen: December 13, 2024 Resident Creating Document: PRATIMA VALLE RESIDENT Medical Necessity Reason Pt with a Central, PICC or Fol: Yes The following are medically ne: Central Line Subjective Review of Systems This is a 59-year-old man with past medical history of COPD, CHF, PE on Eliquis, hypertension, dyslipidemia, prediabetes presented to the emergency room via EMS with a chief complaint of chest pain x1 day. Upon assessment the patient was found on a tripod position with severe shortness of breath. He is a very poor historian. Denies chest pain. Per records, he was discharged from [facility] on 12/09/2024. The patient is unable to report diagnosis or treatment. EN route to the hospital he was medicated with ASA 324 mg, NTG SL, and found with BGL of 150 mg/dL. Upon arrival to the emergency room he underwent multiple 12 lead electrocardiograms x 2 revealing a sinus tachycardia rhythm up to 109 bpm and suggestive of right ventricular hypertrophy. Serial troponin levels peaked at 147 ng/L. Initial VBG was showing elevated pCO2 more than 150 and patient became altered, disoriented needed emergent intubation. Patient was seen and examined on the bedside. He is on mechanical ventilation with FiO2 30%, tidal volume 500, PEEP 5 and respiratory rate 24. Past medical history: COPD on home oxygen, CHF, PE, hypertension, dyslipidemia, prediabetes Past surgical history: None Family history : Noncontributory Social history: Lives alone, and has a caregiver. Smoker, alcoholic and used street drugs. Home medications: Med neb, Eliquis 2.5 mg b.i.d., aspirin 81 mg, atorvastatin 40 mg, furosemide 20 mg, gabapentin 100 mg b.i.d., losartan 50 mg, metoprolol succinate 25 mg, prednisone 20 mg b.i.d. Objective vital signs Vital Sign Date Time Temp Pulse Resp B/P (MAP) Pulse Ox O2 Delivery O2 Flow Rate FiO2 12/13/24 15:47 96 24 105/74 (84) 100 30 12/13/24 12:45 97.3 207.1 12/13/24 12:00 Mechanical Ventilator+ 12/11/24 10:30 5.0 Total Intake and Output 12/12/24 12/12/24 12/13/24 15:00 23:00 07:00 Intake Total 631.75 ml 222.50 ml 224.5 ml Output Total 750 ml 700 ml Balance 631.75 ml -527.50 ml -475.5 ml medications Current Medications Medications Dose Ordered Sig/Saroj Route Start Time Stop Time Status Last Admin Dose Admin Pantoprazole Sodium 40 mg DAILY IV 12/11/24 10:00 12/13/24 10:39 40 MG Sodium Chloride 10 ml Q8HR IV 12/10/24 22:00 12/13/24 13:57 10 ML Nitroglycerin 0.4 mg Q5MINP PRN SL 12/10/24 17:45 Morphine Sulfate 2 mg Q30M PRN IV 12/10/24 17:45 Furosemide 20 mg DAILY IV 12/12/24 10:00 Norepinephrine Bitartrate 250 ml @ 3.75 mls/hr Q24H IV 12/11/24 16:45 12/12/24 04:16 26.25 MLS/HR Midazolam HCl 50 ml @ 1 mls/hr Q24H IV 12/11/24 16:45 12/13/24 16:42 10 MLS/HR Fentanyl Citrate 250 ml @ 2.5 mls/hr Q24H IV 12/11/24 16:45 12/13/24 07:23 15 MLS/HR Enoxaparin Sodium 40 mg DAILY SC 12/13/24 10:00 12/13/24 10:40 40 MG Sodium Chloride 10 ml QSHIFT@10,22 IV 12/12/24 22:00 12/13/24 10:40 10 ML Vancomycin HCl 0 ml @ 0 mls/hr UD IV 12/13/24 10:30 Cefepime HCl 50 ml @ 12.5 mls/hr Q8HR IV 12/13/24 14:00 Methylprednisolone Sodium Succinate 40 mg BID IV 12/13/24 22:00 Ipratropium [place] 0.5 mg Q6HR NEB 12/13/24 12:00 12/13/24 11:43 0.5 MG Levalbuterol HCl 1.25 mg Q6HR NEB 12/13/24 12:00 12/13/24 11:43 1.25 MG Examination Physical exam: General: RASS -3, afebrile, mucosae are moist Cardiovascular: Normal S1 and S2. No murmurs, gallops or rubs Respiratory: Mechanically assisted vent, bilateral equal air entry, bilateral wheezing and fine crackles Abdomen: Soft, nontender, no organomegaly, normal bowel sounds MSK/skin: Mobilization of limbs cannot be evaluated. Skin is dry and warm. Neurological: Orientation cannot be assessed. No apparent motor no sensitive deficits. Pupils are isocoric and reactive laboratory and microbiology Laboratory Tests 12/13/24 03:00 Test 12/13/24 03:00 Range/Units Serum Glucose 176 H 74-106 mg/dL Microbiology Date/Time Source Procedure Growth Status 12/12/24 02:00 Blood Blood Culture - Preliminary NO GROWTH AFTER 24 HOURS OF INCUBATION. Resulted 12/11/24 18:30 Sputum Expectorated Sputum Gram Stain - Final Resulted 12/11/24 18:30 Sputum Expectorated Sputum Respiratory Culture - Preliminary Resulted 12/10/24 20:35 Nose MRSA Screen - Final Complete Labs and/or images reviewed: Labs reviewed by me, Image(s) reviewed by me Problem List/Assessment/Plan Problem List/Assessment/Plan Assessment and plan: NEURO: Acute metabolic encephalopathy secondary to hypercapnia/carbon dioxide narcosis On mechanical ventilation RASS score: -3 CARDIOVASCULAR: Acute exacerbation of chronic systolic heart failure with mildly reduced ejection fraction Possible NSTEMI type 2 likely due to sepsis New onset paroxysmal Afib with RVR with secondary hypercoagulable state, on amiodarone drip - Initial EKG showing sinus tachycardia and right ventricular hypertrophy - Echo showed EF 45-55%, RVSP 42 mm Hg, [id number] TR - BNP is 581.32 - Troponin trends were 147 > 131> 123 - cardiology on board - IV Lasix 20 mg daily - IV amiodarone drip as per protocol - Lovenox 70 mg SC bid PULMONARY: Acute hypoxic/hypercapnic respiratory failure Acute on chronic respiratory failure due to exacerbation of COPD Acute exacerbation of chronic COPD with superimposed pneumonia Sepsis due to pneumonia History of Pulmonary embolism - Chest x-ray showed Extensive scarring is seen in the bilateral mid to upper lung douglas with Superimposed pneumonia. - Medneb with levalbuterol and ipratropium q.6 hours - IV methylprednisolone 40 mg b.i.d. - IV vancomycin as per pharmacy and IV cefepime 1 g Q 8 hr - Covid, flu and MRSA are negative - Pending sputum culture - Lovenox 70 mg sc bid GASTROINTESTINAL: Hyperbilirubinemia with transaminitis likely due to sepsis GENITOURINARY: UDS is positive for opioids Acute kidney injury ruled out ENDOCRINE: Prediabetes, HbA1C 6.2 Euthyroid Sick syndrome - TSH is low, T3 and T4 are low METABOLIC: Moderate protein calorie malnutrition, albumin 3.1 Hyperkalemia resolved INFECTIOUS DISEASE: Sepsis due to pneumonia Lactic acidosis due to sepsis Acute exacerbation of chronic COPD with superimposed pneumonia - Blood culture showed no growth in 24 hours of incubation - Lactic acid is 4.3 - Given NS 500 mL bolus - IV vancomycin as per pharmacy and IV cefepime 1 g Q 8 hours DIET: NPO DVT prophylax: Lovenox GI prophylaxis: Protonix Bowel regimen: None Code status: Full code LINES/DRAINS/ACCESS: ETT: Intubated on 12/10/24 IV access: Peripheral line, right arm PICC line placed on 12/10/2024 Drips: Levophed 4, fentanyl 150, Versed 8 Kimble catheter: Placed on 12/10/2024 DISPOSITION: ICU Patient's status discussed with Sister, customer care associate time spent more than 81 minutes, including patient care, chart review, and updating the family. Excluding any procedures. Case discussed with Dr. Albarado Plan discussed with: Other (RN) My Orders My Orders Orders - PRATIMA VALLE RESIDENT Procedure Category Date Status Time Urine Bacterial KUMAR 12/13/24 Logged Culture 10:28 Vancomycin Per [facility] 12/13/24 In Process Pharmacy 10:30 Cefepime 1gm/ 50ml [facility] 12/13/24 In Process (Maxipime 1gm/50ml) 14:00 Methylprednisolone [facility] 12/13/24 In Process Sod Succ (Solu Medrol 22:00 Ipratropium Medneb [facility] 12/13/24 In Process (Atrovent Medneb) 12:00 Levalbuterol Hcl [facility] 12/13/24 In Process (Xopenex Medneb) 12:00 * Wound Consult CONS 12/13/24 Transmitted * Dietary Consult CONS 12/13/24 Transmitted 12:45 Dietary Evaluation Review Comments: 1) TF Glucerna 1.2 Bhupendra @ 70ml/hr x 24 hr (goal). Start @ 20ml/hr, increase 10ml/hr Q4H until goal rate is reached. TF at goal volume provides 100% energy & protein needs - 2016 kcal, 101 gm protein, 1352 ml free water 2) Water flush 170ml Q6H if allowed 3) TPN if NPO>7 days 4) Monitor BW, lab values and skin integrity Expected Outcomes/Goals: To meet >75% estimated needs Fu 2-3 days Date of Service: December 13, 2024 Billing Provider: IDALMIS ALBARADO MD Common Visit Codes: [id number] CARE 30-74 MIN, [id number] CARE-EACH +30MIN PRATIMA VALLE RESIDENT December 13, 2024 16:55 IDALMIS ALBARADO MD December 14, 2024 14:33
[2024-12-13] MEDS: VANCOMYCIN 1GM/200ML PM 200 ML IV SCH (17:07)
[2024-12-13 22:04] LABS: Chloride 103 mmol/L (98-107); Potassium 3.8 mmol/L (3.5-5.1); Sodium 143 mmol/L (136-145)
[2024-12-13 22:05] LABS: Anion Gap 6 (5-15)
[2024-12-13 22:10] LABS: BUN/Creatinine Ratio 35.3 (10.0-20.0)
[2024-12-13 22:11] LABS: Magnesium 1.9 mg/dL (1.6-2.6)
[2024-12-13 22:15] LABS: Blood Urea Nitrogen 30 mg/dL (9-23); Calcium 7.6 mg/dL (8.7-10.4); Carbon Dioxide 34 mmol/L (20-31); Glucose 153 mg/dL (74-106)
[2024-12-13] MEDS: methylPREDNISolone SOD SUCC 40 MG/ML VL IV SCH (22:19)
[2024-12-13 22:40] LABS: Lactic Acid w/Reflex 3.2 mmol/L (0.4-2.0)
[2024-12-14] VITALS (107 sets, daily range): BP systolic 80–135; BP diastolic 53–106; PULSE 65–134; RESP 15–25; TEMP 97–99.1; O2SAT 88–100
[2024-12-14] MEDS: CALCIUM GLUC 1,000mg/50ml-NS 50 ML IV ONE (00:45)
[2024-12-14] MEDS: MAGNESIUM SULFATE 1GM/100ML 100 ML IV ONE (02:03)
[2024-12-14] MEDS: POTASSIUM CHL 20MEQ/100ML 100 ML IV ONE (02:04)
--- NOTE | 2024-12-14 05:13 | DVH ---
CHEST RADIOGRAPH Indication: INTUBATED, ARF Technique: Single frontal view of the chest was obtained Comparison: XY CHEST PORTABLE on DOS: 12/13/24 FINDINGS: Lines and Tubes: The endotracheal tube terminates 5.3 cm above the rosalva. A right PICC terminates i n the superior vena cava. Enteric tube terminates in the stomach. Lungs: Hazy bilateral opacities. Pleura: No effusion. No pneumothorax. Cardiomediastinal contours: Unremarkable Bones: No acute osseous abnormality. IMPRESSION: 1. Endotracheal tube terminates 5.3 cm above rosalva. 2. Hazy bilateral opacities which may reflect pneumonia.
[2024-12-14 05:17] LABS: Basophils # (auto) 0 10 ^3/uL (0-0.2); Basophils % (auto) 0.2 % (0.0-2.0); Eosinophils # (auto) 0 10 ^3/uL (0-0.8); Hemoglobin 12.2 g/dL (13.5-17.5); Lymphocytes # (auto) 0.3 10 ^3/uL (0.4-5.4); Lymphocytes % (auto) 4.8 % (10.0-50.0); Mean Corpuscular Hemoglobin 31.9 pg (28.0-32.0); Mean Corpuscular Volume 96.7 fL (80.0-100.0); Monocytes # (auto) 0.4 10 ^3/uL (0-1.3); Monocytes % (auto) 6.5 % (0.0-12.0); Neutrophils # (auto) 5.7 10 ^3/uL (1.6-8.6); Neutrophils % (auto) 88.5 % (37.0-80.0); Platelet Count (auto) 158 10^3/uL (140-450); Red Blood Cells 3.82 10^6/uL (4.5-5.90); Red Cell Distribution Width 14.3 % (11.8-14.3); White Blood Cell 6.4 10^3/uL (4.4-10.8)
[2024-12-14 05:38] LABS: Alanine Aminotransferase 25 U/L (7-40); Alkaline Phosphatase 51 U/L (46-116); Anion Gap 6 (5-15); Aspartate Aminotransferase 25 U/L (13-40); Bilirubin, Total 1.1 mg/dL (0.2-1.0); Chloride 103 mmol/L (98-107); Potassium 4.2 mmol/L (3.5-5.1); Sodium 142 mmol/L (136-145)
[2024-12-14 05:55] LABS: Albumin 2.8 g/dL (3.2-4.8); Blood Urea Nitrogen 30 mg/dL (9-23); Calcium 7.7 mg/dL (8.7-10.4); Carbon Dioxide 33 mmol/L (20-31); Glucose 150 mg/dL (74-106); Total Protein 4.7 g/dL (5.7-8.2)
[2024-12-14 07:51] LABS: Base Excess 5.3 mmol/L (-2.0-3.0)
[2024-12-14] MEDS ORDERED: MAGNESIUM SULFATE 1GM/100ML 100 ML IV ONE (10:45)
--- NOTE | 2024-12-14 10:59 | DVHPN2 ---
Consult Progress Note Date Seen: December 14, 2024 Subjective Other Systems: Notified of new onset a-fib with RVR Objective vital signs Vital Sign Date Time Temp Pulse Resp B/P (MAP) Pulse Ox O2 Delivery O2 Flow Rate FiO2 12/14/24 10:09 93/68 12/14/24 09:10 92 24 100 30 12/14/24 08:00 Mechanical Ventilator+ 12/14/24 07:15 98.4 209.1 Total Intake and Output 12/13/24 12/13/24 12/14/24 15:00 23:00 07:00 Intake Total 241.0 ml 462.75 ml 196.75 ml Output Total 510 ml 650 ml Balance 241.0 ml -47.25 ml -453.25 ml medications Current Medications Medications Dose Ordered Sig/Saroj Route Start Time Stop Time Status Last Admin Dose Admin Pantoprazole Sodium 40 mg DAILY IV 12/11/24 10:00 12/14/24 10:09 40 MG Sodium Chloride 10 ml Q8HR IV 12/10/24 22:00 12/14/24 06:22 10 ML Nitroglycerin 0.4 mg Q5MINP PRN SL 12/10/24 17:45 Morphine Sulfate 2 mg Q30M PRN IV 12/10/24 17:45 Furosemide 20 mg DAILY IV 12/12/24 10:00 12/14/24 10:09 20 MG Norepinephrine Bitartrate 250 ml @ 3.75 mls/hr Q24H IV 12/11/24 16:45 12/13/24 17:20 7.5 MLS/HR Midazolam HCl 50 ml @ 1 mls/hr Q24H IV 12/11/24 16:45 12/14/24 10:14 5 MLS/HR Fentanyl Citrate 250 ml @ 2.5 mls/hr Q24H IV 12/11/24 16:45 12/14/24 10:12 7.5 MLS/HR Enoxaparin Sodium 40 mg DAILY SC 12/13/24 10:00 12/14/24 10:10 40 MG Sodium Chloride 10 ml QSHIFT@10,22 IV 12/12/24 22:00 12/14/24 10:10 10 ML Vancomycin HCl 0 ml @ 0 mls/hr UD IV 12/13/24 10:30 Cefepime HCl 50 ml @ 12.5 mls/hr Q8HR IV 12/13/24 14:00 12/14/24 06:26 12.5 MLS/HR Methylprednisolone Sodium Succinate 40 mg BID IV 12/13/24 22:00 12/14/24 10:10 40 MG Ipratropium [place] 0.5 mg Q6HR NEB 12/13/24 12:00 12/14/24 06:00 0.5 MG Levalbuterol HCl 1.25 mg Q6HR NEB 12/13/24 12:00 12/14/24 06:00 1.25 MG Vancomycin HCl 200 ml @ 200 mls/hr Q12H IV 12/13/24 17:00 12/14/24 05:01 200 MLS/HR Examination: GENERAL:Abnormal, LUNGS:Abnormal (Endotracheally intubated 30% FiO2. PEEP 5), CVS:Abnormal (A-fib with RVR 130s bpm. On single low-dose vasopressor), NEURO:Abnormal (Chemically sedated) laboratory and microbiology Laboratory Tests 12/14/24 05:00 Test 12/14/24 05:00 Range/Units Serum Glucose 150 H 74-106 mg/dL Problem List/Assessment/Plan Problem List/Assessment/Plan Sepsis with PNA Acute hypoxic respiratory failure 2/2 COPD exacerbation Acute kidney injury with hyperkalemia NSTEMI, likely type 2 secondary to above New onset atrial fibrillation with rapid ventricular rate Pulmonary arterial hypertension, moderate to severe, likely Group 3 Chronic compensated HFmrEF Hx of PE on Eliquis Prediabetes Hx hypertension Borderline thrombocytopenia Plan/Recommendation (Dr. Adame) Transthoracic echocardiogram revealed LVEF 45-50%. D-septum was in favor of component of PAH. RVSP 60 mmHg. Initiate antiarrhythmic therapy with amiodarone drip, monitor LFTs. Transition to therapeutic Lovenox given new onset atrial fibrillation ([id number] Score 2 points, HAS-BLED Score 0 points). Replete electrolytes as necessary, potassium >4 and magnesium >2. Transition to oral lasix when appropriate. Continue Pulmonology recommendations. The patient can benefit from tertiary care center work-up for PAH. Rest of plan per clinical course. Thank you for allowing us to participate in this patient's care. Critical care time: 30 min. This medical document was created using an electronic medical record system with voice recognition software and computerized dictation system. Although this document has been carefully reviewed, there might still be some phonetic and typographical errors. Occasional wrong-word or ``sound-alike substitutions may have occurred due to the inherent limitations of voice recognition software. These areas are purely typographical due to imperfections of the software programs and do not reflect any compromise in the patient's medical care. Please read the chart carefully and recognize, using context, where these substitutions have occurred. Plan discussed with: Other Dietary Evaluation Review Comments: 1) TF Glucerna 1.2 Bhupendra @ 70ml/hr x 24 hr (goal). Start @ 20ml/hr, increase 10ml/hr Q4H until goal rate is reached. TF at goal volume provides 100% energy & protein needs - 2016 kcal, 101 gm protein, 1352 ml free water 2) Water flush 170ml Q6H if allowed 3) TPN if NPO>7 days 4) Monitor BW, lab values and skin integrity Expected Outcomes/Goals: To meet >75% estimated needs Fu 2-3 days Date of Service: December 14, 2024 Billing Provider: MAURI HARRIS Cardiology Common Codes: [id number] CARE 30-74 MIN MAURI HARRIS December 14, 2024 10:59
--- NOTE | 2024-12-14 10:59 | ECG ---
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
[2024-12-14] MEDS: AMIODARONE BOLUS KIT 100 ML IV ONE (11:49)
[2024-12-14] MEDS: AMIODARONE 360mg/200mL PREMIX 200 ML IV ONE (11:50)
[2024-12-14] MEDS: SODIUM CHLORIDE 0.9% 500 ML IV ONE (15:11)
[2024-12-14] MEDS ORDERED: DEXMEDETOMIDINE HCL IN D5W 100 ML IV SCH (15:30)
[2024-12-14 15:35] LABS: Base Excess 3.8 mmol/L (-2.0-3.0)
[2024-12-14] MEDS: AMIODARONE 360mg/200mL PREMIX 200 ML IV SCH (17:24)
[2024-12-14 18:39] LABS: COVID19 ANTIGEN SOFIA FIA NEGATIVE (NEGATIVE)
--- NOTE | 2024-12-14 19:19 | DVHPNRES ---
Progress Note Date Seen: December 14, 2024 Resident Creating Document: PRATIMA VALLE RESIDENT Medical Necessity Reason Pt with a Central, PICC or Fol: Yes The following are medically ne: Central Line Subjective Review of Systems This is a 59-year-old man with past medical history of COPD, CHF, PE on Eliquis, hypertension, dyslipidemia, prediabetes presented to the emergency room via EMS with a chief complaint of chest pain x1 day. Upon assessment the patient was found on a tripod position with severe shortness of breath. He is a very poor historian. Denies chest pain. Per records, he was discharged from [facility] on 12/09/2024. The patient is unable to report diagnosis or treatment. EN route to the hospital he was medicated with ASA 324 mg, NTG SL, and found with BGL of 150 mg/dL. Upon arrival to the emergency room he underwent multiple 12 lead electrocardiograms x 2 revealing a sinus tachycardia rhythm up to 109 bpm and suggestive of right ventricular hypertrophy. Serial troponin levels peaked at 147 ng/L. Initial VBG was showing elevated pCO2 more than 150 and patient became altered, disoriented needed emergent intubation. Patient was seen and examined on the bedside. He is on mechanical ventilation with FiO2 30%, tidal volume 500, PEEP 5 and respiratory rate 24. Patient was on sedation vacation today, on Precedex drip and is scheduled for CPAP trial tomorrow. Past medical history: COPD on home oxygen, CHF, PE, hypertension, dyslipidemia, prediabetes Past surgical history: None Family history : Noncontributory Social history: Lives alone, and has a caregiver. Smoker, alcoholic and used street drugs. Home medications: Med neb, Eliquis 2.5 mg b.i.d., aspirin 81 mg, atorvastatin 40 mg, furosemide 20 mg, gabapentin 100 mg b.i.d., losartan 50 mg, metoprolol succinate 25 mg, prednisone 20 mg b.i.d. Objective vital signs Vital Sign Date Time Temp Pulse Resp B/P (MAP) Pulse Ox O2 Delivery O2 Flow Rate FiO2 12/14/24 18:45 98.4 77 15 106/80 (89) 94 209.1 12/14/24 18:11 30 12/14/24 18:00 Mechanical Ventilator+ Total Intake and Output 12/13/24 12/13/24 12/14/24 14:59 22:59 06:59 Intake Total 239.0 ml 462.00 ml 228.00 ml Output Total 510 ml 650 ml Balance 239.0 ml -48.00 ml -422.00 ml medications Current Medications Medications Dose Ordered Sig/Saroj Route Start Time Stop Time Status Last Admin Dose Admin Pantoprazole Sodium 40 mg DAILY IV 12/11/24 10:00 12/14/24 10:09 40 MG Sodium Chloride 10 ml Q8HR IV 12/10/24 22:00 12/14/24 15:12 10 ML Nitroglycerin 0.4 mg Q5MINP PRN SL 12/10/24 17:45 Morphine Sulfate 2 mg Q30M PRN IV 12/10/24 17:45 Furosemide 20 mg DAILY IV 12/12/24 10:00 12/14/24 10:09 20 MG Norepinephrine Bitartrate 250 ml @ 3.75 mls/hr Q24H IV 12/11/24 16:45 12/13/24 17:20 7.5 MLS/HR Midazolam HCl 50 ml @ 1 mls/hr Q24H IV 12/11/24 16:45 12/14/24 10:14 5 MLS/HR Fentanyl Citrate 250 ml @ 2.5 mls/hr Q24H IV 12/11/24 16:45 12/14/24 10:12 7.5 MLS/HR Sodium Chloride 10 ml QSHIFT@10,22 IV 12/12/24 22:00 12/14/24 10:10 10 ML Vancomycin HCl 0 ml @ 0 mls/hr UD IV 12/13/24 10:30 Cefepime HCl 50 ml @ 12.5 mls/hr Q8HR IV 12/13/24 14:00 12/14/24 15:12 12.5 MLS/HR Methylprednisolone Sodium Succinate 40 mg BID IV 12/13/24 22:00 12/14/24 10:10 40 MG Ipratropium [place] 0.5 mg Q6HR NEB 12/13/24 12:00 12/14/24 18:11 0.5 MG Levalbuterol HCl 1.25 mg Q6HR NEB 12/13/24 12:00 12/14/24 18:11 1.25 MG Vancomycin HCl 200 ml @ 200 mls/hr Q12H IV 12/13/24 17:00 12/14/24 16:56 200 MLS/HR Enoxaparin Sodium 70 mg Q12HR SC 12/14/24 22:00 Examination Physical exam: General: RASS -2, afebrile, mucosae are moist Cardiovascular: Normal S1 and S2. No murmurs, gallops or rubs Respiratory: Mechanically assisted vent, bilateral equal air entry, bilateral wheezing and fine crackles Abdomen: Soft, nontender, no organomegaly, normal bowel sounds MSK/skin: Mobilization of limbs cannot be evaluated. Skin is dry and warm. Neurological: Orientation cannot be assessed. No apparent motor no sensitive deficits. Pupils are isocoric and reactive laboratory and microbiology Laboratory Tests 12/14/24 05:00 Test 12/14/24 05:00 Range/Units Serum Glucose 150 H 74-106 mg/dL Microbiology Date/Time Source Procedure Growth Status 12/12/24 02:00 Blood Blood Culture - Preliminary NO GROWTH AFTER 48 HOURS OF INCUBATION. Resulted 12/11/24 18:30 Sputum Expectorated Sputum Gram Stain - Final Complete 12/11/24 18:30 Sputum Expectorated Sputum Respiratory Culture - Final Complete 12/10/24 20:35 Nose MRSA Screen - Final Complete Labs and/or images reviewed: Labs reviewed by me, Image(s) reviewed by me Problem List/Assessment/Plan Problem List/Assessment/Plan Assessment and plan: NEURO: Acute metabolic encephalopathy secondary to hypercapnia/carbon dioxide narcosis On mechanical ventilation RASS score: -2 CARDIOVASCULAR: Acute exacerbation of chronic systolic heart failure with mildly reduced ejection fraction Possible NSTEMI type 2 likely due to sepsis New onset paroxysmal Afib with RVR with secondary hypercoagulable state, on amiodarone drip - Initial EKG showing sinus tachycardia and right ventricular hypertrophy - Echo showed EF 45-55%, RVSP 42 mm Hg, [id number] TR - BNP is 581.32 - Troponin trends were 147 > 131> 123 - cardiology on board - IV Lasix 20 mg daily - IV amiodarone drip as per protocol - Lovenox 70 mg SC bid PULMONARY: Acute hypoxic/hypercapnic respiratory failure Acute on chronic respiratory failure due to exacerbation of COPD Acute exacerbation of chronic COPD with superimposed pneumonia Sepsis due to pneumonia History of Pulmonary embolism - Chest x-ray showed Extensive scarring is seen in the bilateral mid to upper lung douglas with Superimposed pneumonia. - Medneb with levalbuterol and ipratropium q.6 hours - IV methylprednisolone 40 mg b.i.d. - IV vancomycin as per pharmacy and IV cefepime 1 g Q 8 hr - Covid, flu and MRSA are negative - Pending sputum culture - Lovenox 70 mg sc bid GASTROINTESTINAL: Hyperbilirubinemia with transaminitis likely due to sepsis GENITOURINARY: UDS is positive for opioids Acute kidney injury ruled out ENDOCRINE: Prediabetes, HbA1C 6.2 Euthyroid Sick syndrome - TSH is low, T3 and T4 are low METABOLIC: Moderate protein calorie malnutrition, albumin 3.1 Hyperkalemia resolved INFECTIOUS DISEASE: Sepsis due to pneumonia Lactic acidosis due to sepsis Acute exacerbation of chronic COPD with superimposed pneumonia - Blood culture showed no growth in 24 hours of incubation - Lactic acid is 4.3 - Given NS 500 mL bolus - IV vancomycin as per pharmacy and IV cefepime 1 g Q 8 hours DIET: NPO DVT prophylax: Lovenox GI prophylaxis: Protonix Bowel regimen: None Code status: Full code LINES/DRAINS/ACCESS: ETT: Intubated on 12/10/24 IV access: Peripheral line, right arm PICC line placed on 12/10/2024 Drips: Precedex , amiodarone Kimble catheter: Placed on 12/10/2024 DISPOSITION: ICU Patient's status discussed with Sister, patient care secretary time spent more than 81 minutes, including patient care, chart review, and updating the family. Excluding any procedures. Case discussed with Dr. Albarado Plan discussed with: Other (RN) My Orders My Orders Orders - PRATIMA VALLE RESIDENT Procedure Category Date Status Time Chest Portable XY 12/14/24 Resulted 04:00 Abg W/ Co-Ox RT 12/14/24 Logged 04:00 Dietary Evaluation Review Comments: 1) TF Glucerna 1.2 Bhupendra @ 70ml/hr x 24 hr (goal). Start @ 20ml/hr, increase 10ml/hr Q4H until goal rate is reached. TF at goal volume provides 100% energy & protein needs - 2016 kcal, 101 gm protein, 1352 ml free water 2) Water flush 170ml Q6H if allowed 3) TPN if NPO>7 days 4) Monitor BW, lab values and skin integrity Expected Outcomes/Goals: To meet >75% estimated needs Fu 2-3 days Date of Service: December 14, 2024 Billing Provider: IDALMIS ALBARADO MD Common Visit Codes: [id number] CARE 30-74 MIN, [id number] CARE-EACH +30MIN LEONARDPRATIMA RESIDENT December 14, 2024 19:19 IDALMIS ALBARADO MD December 15, 2024 11:25
[2024-12-14] MEDS: ENOXAPARIN SOD 80 MG/0.8ML SYRINGE SC SCH (22:02)
[2024-12-14] MEDS: DEXMEDETOMIDINE HCL IN D5W 100 ML IV SCH (23:09)
[2024-12-15] VITALS (105 sets, daily range): BP systolic 85–137; BP diastolic 49–90; PULSE 55–113; RESP 12–29; TEMP 97.5–99.5; O2SAT 77–100
[2024-12-15 04:10] LABS: Basophils # (auto) 0 10 ^3/uL (0-0.2); Basophils % (auto) 0.1 % (0.0-2.0); Eosinophils # (auto) 0 10 ^3/uL (0-0.8); Hemoglobin 12.7 g/dL (13.5-17.5); Lymphocytes # (auto) 0.2 10 ^3/uL (0.4-5.4); Lymphocytes % (auto) 2.4 % (10.0-50.0); Mean Corpuscular Hemoglobin 32.7 pg (28.0-32.0); Mean Corpuscular Hgb Conc. 33.4 g/dL (32.0-36.0); Mean Corpuscular Volume 97.8 fL (80.0-100.0); Monocytes # (auto) 0.3 10 ^3/uL (0-1.3); Monocytes % (auto) 3.3 % (0.0-12.0); Neutrophils # (auto) 8.7 10 ^3/uL (1.6-8.6); Neutrophils % (auto) 94.2 % (37.0-80.0); Nucleated Red Blood Cells % 0.1 %; Platelet Count (auto) 160 10^3/uL (140-450); Red Blood Cells 3.89 10^6/uL (4.5-5.90); Red Cell Distribution Width 14.1 % (11.8-14.3); White Blood Cell 9.3 10^3/uL (4.4-10.8)
[2024-12-15 04:25] LABS: Alanine Aminotransferase 30 U/L (7-40); Alkaline Phosphatase 55 U/L (46-116); Anion Gap 7 (5-15); Aspartate Aminotransferase 27 U/L (13-40); BUN/Creatinine Ratio 36.3 (10.0-20.0); Carbon Dioxide 31 mmol/L (20-31); Chloride 103 mmol/L (98-107); Potassium 4.2 mmol/L (3.5-5.1); Sodium 141 mmol/L (136-145)
[2024-12-15 04:26] LABS: Bilirubin, Total 0.5 mg/dL (0.2-1.0)
[2024-12-15 04:39] LABS: Albumin 3.1 g/dL (3.2-4.8); Blood Urea Nitrogen 33 mg/dL (9-23); Calcium 7.7 mg/dL (8.7-10.4); Glucose 155 mg/dL (74-106); Total Protein 5.2 g/dL (5.7-8.2)
--- NOTE | 2024-12-15 05:21 | DVH ---
EXAM: XR Chest, 1 View CLINICAL INDICATION: Mechanical ventilation TECHNIQUE: Frontal view of the chest. COMPARISON: XY CHEST PORTABLE on DOS: 12/14/24, XY CHEST PORTABLE on DOS: 12/13/24, XY CHEST PORTABLE on DOS: 12/11/24, XY CHEST XRAY 1 VIEW on DOS: 12/11/24, XY CHEST PORTABLE on DOS: 12/11/24 FINDINGS: LUNGS AND PLEURAL SPACES: Hyperlucent lungs. Flattening of the diaphragm. No consolidation. No pn eumothorax. HEART: Unremarkable. No cardiomegaly. MEDIASTINUM: Unremarkable. Normal mediastinal contour. BONES/JOINTS: Unremarkable. No acute fracture. TUBES, LINES AND DEVICES: Stable tubes and lines. OTHER FINDINGS: . . . IMPRESSION: 1. Suggestion of COPD. 2. No significant change from the prior exam.
[2024-12-15 06:13] LABS: Base Excess 2.2 mmol/L (-2.0-3.0)
--- NOTE | 2024-12-15 11:08 | DVHPN2 ---
Consult Progress Note Subjective Other Systems: Patient is now in normal sinus rhythm on awake overnight monitor. Patient remains mechanically ventilated, currently undergoing CPAP trial. Objective vital signs Vital Sign Date Time Temp Pulse Resp B/P (MAP) Pulse Ox O2 Delivery O2 Flow Rate FiO2 12/15/24 09:03 63 16 102/76 (85) 97 30 12/15/24 08:30 98.1 208.6 12/15/24 08:00 Mechanical Ventilator+ Total Intake and Output 12/14/24 12/14/24 12/15/24 15:00 23:00 07:00 Intake Total 895.32 ml 436.62 ml 423.613 ml Output Total 1000 ml 530 ml Balance 895.32 ml -563.38 ml -106.387 ml medications Current Medications Medications Dose Ordered Sig/Saroj Route Start Time Stop Time Status Last Admin Dose Admin Pantoprazole Sodium 40 mg DAILY IV 12/11/24 10:00 12/15/24 08:07 40 MG Sodium Chloride 10 ml Q8HR IV 12/10/24 22:00 12/15/24 05:49 10 ML Nitroglycerin 0.4 mg Q5MINP PRN SL 12/10/24 17:45 Morphine Sulfate 2 mg Q30M PRN IV 12/10/24 17:45 Furosemide 20 mg DAILY IV 12/12/24 10:00 12/15/24 08:07 20 MG Norepinephrine Bitartrate 250 ml @ 3.75 mls/hr Q24H IV 12/11/24 16:45 12/13/24 17:20 7.5 MLS/HR Midazolam HCl 50 ml @ 1 mls/hr Q24H IV 12/11/24 16:45 12/14/24 10:14 5 MLS/HR Fentanyl Citrate 250 ml @ 2.5 mls/hr Q24H IV 12/11/24 16:45 12/14/24 10:12 7.5 MLS/HR Sodium Chloride 10 ml QSHIFT@10,22 IV 12/12/24 22:00 12/15/24 08:09 10 ML Vancomycin HCl 0 ml @ 0 mls/hr UD IV 12/13/24 10:30 Cefepime HCl 50 ml @ 12.5 mls/hr Q8HR IV 12/13/24 14:00 12/15/24 05:47 12.5 MLS/HR Methylprednisolone Sodium Succinate 40 mg BID IV 12/13/24 22:00 12/15/24 08:08 40 MG Ipratropium [place] 0.5 mg Q6HR NEB 12/13/24 12:00 12/15/24 05:28 0.5 MG Levalbuterol HCl 1.25 mg Q6HR NEB 12/13/24 12:00 12/15/24 05:28 1.25 MG Vancomycin HCl 200 ml @ 200 mls/hr Q12H IV 12/13/24 17:00 12/15/24 04:56 200 MLS/HR Enoxaparin Sodium 70 mg Q12HR SC 12/14/24 22:00 12/15/24 08:08 70 MG Thiamine HCl 100 mg DAILY IV 12/15/24 10:00 Examination: GENERAL:Abnormal, LUNGS:Abnormal (Mechanically ventilated, undergoing CPAP trial), CVS:Normal, NEURO:Abnormal (On Precedex, able to follow commands) laboratory and microbiology Laboratory Tests 12/15/24 03:10 Test 12/15/24 03:10 Range/Units Serum Glucose 155 H 74-106 mg/dL Problem List/Assessment/Plan Problem List/Assessment/Plan Sepsis with PNA Acute hypoxic respiratory failure 2/2 COPD exacerbation Acute kidney injury with hyperkalemia, resolved NSTEMI, likely type 2 secondary to above New onset atrial fibrillation with rapid ventricular rate, now NSR Pulmonary arterial hypertension, moderate to severe, likely Group 3 Chronic compensated HFmrEF, NYHA class III [id number] tricuspid regurgitation Hx of PE on Eliquis Prediabetes Hx hypertension Borderline thrombocytopenia Plan/Recommendation (Dr. Adame) Transthoracic echocardiogram revealed LVEF 45-50%. D-septum is in favor of component of PAH. RVSP 60 mmHg. Patient back in normal sinus rhythm on awake overnight monitor. Transitioned to oral amiodarone. ([id number] Score 2 points, HAS- BLED Score 0 points). Currently receiving therapeutic Lovenox, transition to NOAC therapy when appropriate. Consider beta carmen when off of vasopressor therapy. Monitor and replete electrolytes as needed, keep potassium greater than four and magnesium greater than two. Continue pulmonary recommendations. The patient can benefit from tertiary care center workup for PAH. There is no further inpatient cardiac workup indicated at this time. The patient will need to follow up with Cardiology in the outpatient setting within 1-2 weeks post discharge. Thank you for allowing us to care for this patient. Please call with any questions or concerns. Critical care time: 30 min. This medical document was created using an electronic medical record system with voice recognition software and computerized dictation system. Although this document has been carefully reviewed, there might still be some phonetic and typographical errors. Occasional wrong-word or ``sound-alike substitutions may have occurred due to the inherent limitations of voice recognition software. These areas are purely typographical due to imperfections of the software programs and do not reflect any compromise in the patient's medical care. Please read the chart carefully and recognize, using context, where these substitutions have occurred. Plan discussed with: Other (Bedside RN) Dietary Evaluation Review Comments: 1) TF Glucerna 1.2 Bhupendra @ 70ml/hr x 24 hr (goal). Start @ 20ml/hr, increase 10ml/hr Q4H until goal rate is reached. TF at goal volume provides 100% energy & protein needs - 2016 kcal, 101 gm protein, 1352 ml free water 2) Water flush 170ml Q6H if allowed 3) TPN if NPO>7 days 4) Monitor BW, lab values and skin integrity Expected Outcomes/Goals: To meet >75% estimated needs Fu 2-3 days Date of Service: December 15, 2024 Billing Provider: DURAN CALLAHAN Common Visit Codes: [id number] CARE 30-74 MIN DURAN CALLAHAN December 15, 2024 11:08
[2024-12-15] MEDS: FUROSEMIDE 20 MG/2 ML VIAL IV ONE ×2 (11:45→12:52)
[2024-12-15] MEDS: THIAMINE 100mg/ml INJ (200mg/2ml VIAL) IV SCH (13:12)
[2024-12-15 14:07] LABS: Base Excess 5.5 mmol/L (-2.0-3.0)
--- NOTE | 2024-12-15 19:38 | DVHPNRES ---
Progress Note Date Seen: December 15, 2024 Resident Creating Document: PRATIMA VALLE RESIDENT Medical Necessity Reason Pt with a Central, PICC or Fol: Yes The following are medically ne: Central Line Subjective Review of Systems This is a 59-year-old man with past medical history of COPD, CHF, PE on Eliquis, hypertension, dyslipidemia, prediabetes presented to the emergency room via EMS with a chief complaint of chest pain x1 day. Upon assessment the patient was found on a tripod position with severe shortness of breath. He is a very poor historian. Denies chest pain. Per records, he was discharged from [facility] on 12/09/2024. The patient is unable to report diagnosis or treatment. EN route to the hospital he was medicated with ASA 324 mg, NTG SL, and found with BGL of 150 mg/dL. Upon arrival to the emergency room he underwent multiple 12 lead electrocardiograms x 2 revealing a sinus tachycardia rhythm up to 109 bpm and suggestive of right ventricular hypertrophy. Serial troponin levels peaked at 147 ng/L. Initial VBG was showing elevated pCO2 more than 150 and patient became altered, disoriented needed emergent intubation. Patient was seen and examined on the bedside. Patient's passed the CPAP trial today and underwent extubation. Post extubation period was uneventful and currently on nasal cannula 3 L. Past medical history: COPD on home oxygen, CHF, PE, hypertension, dyslipidemia, prediabetes Past surgical history: None Family history : Noncontributory Social history: Lives alone, and has a caregiver. Smoker, alcoholic and used street drugs. Home medications: Med neb, Eliquis 2.5 mg b.i.d., aspirin 81 mg, atorvastatin 40 mg, furosemide 20 mg, gabapentin 100 mg b.i.d., losartan 50 mg, metoprolol succinate 25 mg, prednisone 20 mg b.i.d. Objective vital signs Vital Sign Date Time Temp Pulse Resp B/P (MAP) Pulse Ox O2 Delivery O2 Flow Rate FiO2 12/15/24 19:02 95 20 100 12/15/24 18:54 Nasal Cannula 3.0 12/15/24 18:54 32 12/15/24 18:45 113/80 (91) 12/15/24 18:00 99.1 99.1 Total Intake and Output 12/14/24 12/14/24 12/15/24 15:00 23:00 07:00 Intake Total 895.32 ml 436.62 ml 423.613 ml Output Total 1000 ml 530 ml Balance 895.32 ml -563.38 ml -106.387 ml medications Current Medications Medications Dose Ordered Sig/Saroj Route Start Time Stop Time Status Last Admin Dose Admin Pantoprazole Sodium 40 mg DAILY IV 12/11/24 10:00 12/15/24 08:07 40 MG Sodium Chloride 10 ml Q8HR IV 12/10/24 22:00 12/15/24 13:51 10 ML Nitroglycerin 0.4 mg Q5MINP PRN SL 12/10/24 17:45 Morphine Sulfate 2 mg Q30M PRN IV 12/10/24 17:45 Furosemide 20 mg DAILY IV 12/12/24 10:00 12/15/24 08:07 20 MG Norepinephrine Bitartrate 250 ml @ 3.75 mls/hr Q24H IV 12/11/24 16:45 12/13/24 17:20 7.5 MLS/HR Midazolam HCl 50 ml @ 1 mls/hr Q24H IV 12/11/24 16:45 12/14/24 10:14 5 MLS/HR Fentanyl Citrate 250 ml @ 2.5 mls/hr Q24H IV 12/11/24 16:45 12/14/24 10:12 7.5 MLS/HR Sodium Chloride 10 ml QSHIFT@10,22 IV 12/12/24 22:00 12/15/24 08:09 10 ML Vancomycin HCl 0 ml @ 0 mls/hr UD IV 12/13/24 10:30 Cefepime HCl 50 ml @ 12.5 mls/hr Q8HR IV 12/13/24 14:00 12/15/24 13:51 12.5 MLS/HR Methylprednisolone Sodium Succinate 40 mg BID IV 12/13/24 22:00 12/15/24 08:08 40 MG Ipratropium [place] 0.5 mg Q6HR NEB 12/13/24 12:00 12/15/24 18:54 0.5 MG Levalbuterol HCl 1.25 mg Q6HR NEB 12/13/24 12:00 12/15/24 18:54 1.25 MG Vancomycin HCl 200 ml @ 200 mls/hr Q12H IV 12/13/24 17:00 12/15/24 17:11 200 MLS/HR Enoxaparin Sodium 70 mg Q12HR SC 12/14/24 22:00 12/15/24 08:08 70 MG Thiamine HCl 100 mg DAILY IV 12/15/24 10:00 12/15/24 13:12 100 MG Amiodarone HCl 200 mg Q12HR PO 12/15/24 22:00 Examination Physical examination: General Appearance: Alert, Oriented X2, mild distress HEENT: Atraumatic, PERRLA, EOMI, Mucous membrane moist/pink Respiratory: bilateral wheezing Cardiovascular: Regular rate, Normal S1, Normal S2, No murmurs, no chest wall tenderness Abdominal: Normal bowel sounds, Soft, No tenderness, No hepatospenomegaly, No masses Extremities: No clubbing, No cyanosis, No edema, Normal pulses, No tenderness/swelling Skin: No rashes, No breakdown, No significant lesion Neuro: Strength at 5/5 X4 ext, Normal tone, Sensation intact, Cranial nerves 3- 12 NL, Reflexes 2+ Psych/Mental Status: Could not be assessed. laboratory and microbiology Laboratory Tests 12/15/24 03:10 Test 12/15/24 03:10 Range/Units Serum Glucose 155 H 74-106 mg/dL Microbiology Date/Time Source Procedure Growth Status 12/12/24 02:00 Blood Blood Culture - Preliminary NO GROWTH AFTER 72 HOURS OF INCUBATION. Resulted 12/11/24 18:30 Sputum Expectorated Sputum Gram Stain - Final Complete 12/11/24 18:30 Sputum Expectorated Sputum Respiratory Culture - Final Complete 12/10/24 20:35 Nose MRSA Screen - Final Complete Labs and/or images reviewed: Labs reviewed by me, Image(s) reviewed by me Problem List/Assessment/Plan Problem List/Assessment/Plan Assessment and plan: NEURO: Acute metabolic encephalopathy secondary to hypercapnia/carbon dioxide narcosis S/P extubation and on nasal canula CARDIOVASCULAR: Acute exacerbation of chronic systolic heart failure with mildly reduced ejection fraction Possible NSTEMI type 2 likely due to sepsis New onset paroxysmal Afib with RVR with secondary hypercoagulable state, on amiodarone drip - Initial EKG showing sinus tachycardia and right ventricular hypertrophy - Echo showed EF 45-55%, RVSP 42 mm Hg, [id number] TR - BNP is 581.32 - Troponin trends were 147 > 131> 123 - cardiology on board - IV Lasix 20 mg daily - Amiodarone 200 mg p.o. b.i.d. - Lovenox 70 mg SC bid PULMONARY: Acute hypoxic/hypercapnic respiratory failure Acute on chronic respiratory failure due to exacerbation of COPD Acute exacerbation of chronic COPD with superimposed pneumonia Possible gram positive/ gram negative pneumonia Sepsis due to pneumonia History of Pulmonary embolism - Chest x-ray showed Extensive scarring is seen in the bilateral mid to upper lung douglas with Superimposed pneumonia. - Medneb with levalbuterol and ipratropium q.6 hours - IV methylprednisolone 40 mg b.i.d. - IV vancomycin as per pharmacy and IV cefepime 1 g Q 8 hr - Covid, flu and MRSA are negative - Pending sputum culture - Lovenox 70 mg sc bid GASTROINTESTINAL: Hyperbilirubinemia with transaminitis likely due to sepsis GENITOURINARY: UDS is positive for opioids Acute kidney injury ruled out ENDOCRINE: Prediabetes, HbA1C 6.2 Euthyroid Sick syndrome - TSH is low, T3 and T4 are low METABOLIC: Moderate protein calorie malnutrition, albumin 3.1 Hyperkalemia resolved INFECTIOUS DISEASE: Sepsis due to pneumonia Lactic acidosis due to sepsis Acute exacerbation of chronic COPD with superimposed pneumonia - Blood culture showed no growth in 24 hours of incubation - Lactic acid is 4.3 - Given NS 500 mL bolus - IV vancomycin as per pharmacy and IV cefepime 1 g Q 8 hours DIET: NPO DVT prophylax: Lovenox GI prophylaxis: Protonix Bowel regimen: None Code status: Full code LINES/DRAINS/ACCESS: ETT: Intubated on 12/10/24 IV access: Peripheral line, right arm PICC line placed on 12/10/2024 Drips: Precedex , amiodarone Kim[place] catheter: Placed on 12/10/2024 DISPOSITION: ICU Patient's status discussed with Sister, healthcare specialist time spent more than 81 minutes, including CPAP trial, patient care, chart review, and updating the family. Excluding any procedures. Case discussed with Dr. Albarado Plan discussed with: Other (RN) My Orders My Orders Orders - PRATIMA VALLE RESIDENT Procedure Category Date Status Time Chest Portable XY 12/15/24 Resulted 04:00 Abg W/ Co-Ox RT 12/15/24 Logged 04:00 Cpap Trial For Am ORDERS 12/15/24 Transmitted 08:00 Vancomycin Per RONNIE 12/17/24 In Process Pharmacy Protoc 05:00 Vancomycin,Trough LAB 12/17/24 Verified 04:00 Creatinine LAB 12/16/24 Verified 04:00 Thiamine Inj PHA 12/15/24 In Process 10:00 Communication Order ORDERS 12/15/24 Transmitted 10:44 Abg W/ Co-Ox RT 12/15/24 Logged 14:[address] 12/16/24 Logged 09:00 Speech Pathologist [facility] 12/15/24 In Process Eval: Lety 18:20 Dietary Evaluation Review Comments: 1) TF Glucerna 1.2 Bhupendra @ 70ml/hr x 24 hr (goal). Start @ 20ml/hr, increase 10ml/hr Q4H until goal rate is reached. TF at goal volume provides 100% energy & protein needs - 2016 kcal, 101 gm protein, 1352 ml free water 2) Water flush 170ml Q6H if allowed 3) TPN if NPO>7 days 4) Monitor BW, lab values and skin integrity Expected Outcomes/Goals: To meet >75% estimated needs Fu 2-3 days Date of Service: December 15, 2024 Billing Provider: IDALMIS ALBARADO MD Common Visit Codes: [id number] CARE 30-74 MIN, [id number] CARE-EACH +30MIN PRATIMA VALLE RESIDENT December 15, 2024 19:38 IDALMIS ALBARADO MD Dec 18, 2024 11:37
[2024-12-15] MEDS: AMIODARONE HCL 200 MG TAB PO SCH (22:09)
[2024-12-15] MEDS: LEVALBUTEROL HCL 1.25 MG/3 ML NEB ONE (22:45)
[2024-12-15] MEDS: IPRATROPIUM BROM 0.5 MG/2.5ML INH SOL ONE (22:45)
[2024-12-15] MEDS ORDERED: LEVALBUTEROL HCL 1.25 MG/3 ML NEB NEB PRN (22:45)
[2024-12-15] MEDS ORDERED: IPRATROPIUM BROM 0.5 MG/2.5ML INH SOL NEB PRN (22:45)
[2024-12-16] VITALS (92 sets, daily range): BP systolic 58–161; BP diastolic 41–117; PULSE 83–123; RESP 14–39; TEMP 97.6–99; O2SAT 81–100
[2024-12-16] MEDS: HYDROcodone-ACET 5/325MG TAB PO PRN (02:45)
[2024-12-16 03:52] LABS: Anion Gap 8 (5-15); Chloride 100 mmol/L (98-107); Sodium 141 mmol/L (136-145)
[2024-12-16 03:57] LABS: Basophils # (auto) 0 10 ^3/uL (0-0.2); Basophils % (auto) 0.1 % (0.0-2.0); Eosinophils # (auto) 0 10 ^3/uL (0-0.8); Hematocrit 41.4 % (41.0-53.0); Hemoglobin 13.7 g/dL (13.5-17.5); Lymphocytes # (auto) 0.2 10 ^3/uL (0.4-5.4); Lymphocytes % (auto) 1.5 % (10.0-50.0); Mean Corpuscular Hemoglobin 32.5 pg (28.0-32.0); Mean Corpuscular Volume 98.4 fL (80.0-100.0); Monocytes # (auto) 0.4 10 ^3/uL (0-1.3); Monocytes % (auto) 3.4 % (0.0-12.0); Neutrophils # (auto) 11.8 10 ^3/uL (1.6-8.6); Platelet Count (auto) 175 10^3/uL (140-450); Red Blood Cells 4.21 10^6/uL (4.5-5.90); Red Cell Distribution Width 14.2 % (11.8-14.3); White Blood Cell 12.5 10^3/uL (4.4-10.8)
[2024-12-16 03:58] LABS: BUN/Creatinine Ratio 41.4 (10.0-20.0)
[2024-12-16 04:10] LABS: Blood Urea Nitrogen 36 mg/dL (9-23); Calcium 8.4 mg/dL (8.7-10.4); Carbon Dioxide 33 mmol/L (20-31); Glucose 147 mg/dL (74-106)
--- NOTE | 2024-12-16 05:37 | DVH ---
EXAM: XR Chest, 1 View CLINICAL INDICATION: s/p extubation TECHNIQUE: Frontal view of the chest. COMPARISON: XY CHEST PORTABLE on DOS: 12/15/24, XY CHEST PORTABLE on DOS: 12/14/24, XY CHEST PORTABLE on DOS: 12/13/24, XY CHEST PORTABLE on DOS: 12/11/24, XY CHEST XRAY 1 VIEW on DOS: 12/11/24 FINDINGS: LUNGS AND PLEURAL SPACES: Right basilar atelectasis or pneumonia. Hyperlucent lungs. Flattening of the diaphragm. No pneumothorax. HEART: Unremarkable. No cardiomegaly. MEDIASTINUM: Unremarkable. Normal mediastinal contour. BONES/JOINTS: Unremarkable. No acute fracture. TUBES, LINES AND DEVICES: Right peripherally inserted central catheter (PICC) tip in the superior v radha cava. OTHER FINDINGS: . . . IMPRESSION: 1. Right basilar atelectasis or pneumonia. 2. Suggestion of COPD.
[2024-12-16 09:48] LABS: Base Excess 4.9 mmol/L (-2.0-3.0)
--- NOTE | 2024-12-16 10:22 | DVH ---
Procedure: CT CHEST WITHOUT CONTRAST Reason for study/Clinical History: PNEUMONIA Comparison Study: None TECHNIQUE: Multidetector CT of the chest was performed from the lung apices to the upper abdomen with out the use of intravenous contract. Axial, coronal and sagittal multiplanar reformats were performed . Radiation Dose Information: CT Dose: CTDI volume is 7.43 mGy. Dose-length product is 294.38 mGy*cm The dose indicators for CT are the volume Computed Tomography (CT) Dose Index (CTDIvol) and the Dose Length Product (DLP), and are measured in units of mGy and mGy-cm, respectively. These indicators are not patient dose, but values generated from the CT scanner acquisition factors. The report includes radiation exposure data for exposures received during this examination. FINDINGS: Lower neck: Unremarkable. Lungs: Severe centrilobular emphysema. Severe apical scarring. Heart/Vascular Structures: Cardiomegaly. Vascular calcifications of the aorta. Lymph Nodes: No adenopathy Pleura: No pleural effusion or significant pneumothorax. Musculoskeletal: No acute osseous abnormality. Soft tissues: Normal. Upper abdomen: Limited portions of the upper abdomen are unremarkable. IMPRESSION: No focal airspace consolidation. Severe emphysema and scarring.
[2024-12-16] MEDS ORDERED: levoFLOXacin 500MG 100 ML IV ONE (14:15)
[2024-12-16] MEDS: DOXYCYCLINE 100MG/100ML 100 ML IV ONE (15:20)
[2024-12-16] MEDS: DOXYCYCLINE 100MG/100ML 100 ML IV SCH (15:23)
--- NOTE | 2024-12-16 16:27 | DVHPNRES ---
Progress Note Date Seen: December 16, 2024 Resident Creating Document: PRATIMA VALLE RESIDENT Medical Necessity Reason Pt with a Central, PICC or Fol: Yes The following are medically ne: Central Line Subjective Review of Systems This is a 59-year-old man with past medical history of COPD, CHF, PE on Eliquis, hypertension, dyslipidemia, prediabetes presented to the emergency room via EMS with a chief complaint of chest pain x1 day. Upon assessment the patient was found on a tripod position with severe shortness of breath. He is a very poor historian. Denies chest pain. Per records, he was discharged from [facility] on 12/09/2024. The patient is unable to report diagnosis or treatment. EN route to the hospital he was medicated with ASA 324 mg, NTG SL, and found with BGL of 150 mg/dL. Upon arrival to the emergency room he underwent multiple 12 lead electrocardiograms x 2 revealing a sinus tachycardia rhythm up to 109 bpm and suggestive of right ventricular hypertrophy. Serial troponin levels peaked at 147 ng/L. Initial VBG was showing elevated pCO2 more than 150 and patient became altered, disoriented needed emergent intubation. Patient was seen and examined on the bedside. S/P extubation and currently on oxymizer 5L. Past medical history: COPD on home oxygen, CHF, PE, hypertension, dyslipidemia, prediabetes Past surgical history: None Family history : Noncontributory Social history: Lives alone, and has a caregiver. Smoker, alcoholic and used street drugs. Home medications: Med neb, Eliquis 2.5 mg b.i.d., aspirin 81 mg, atorvastatin 40 mg, furosemide 20 mg, gabapentin 100 mg b.i.d., losartan 50 mg, metoprolol succinate 25 mg, prednisone 20 mg b.i.d. Objective vital signs Vital Sign Date Time Temp Pulse Resp B/P (MAP) Pulse Ox O2 Delivery O2 Flow Rate FiO2 12/16/24 14:00 22 92 Oxymizer 5 N/A 12/16/24 14:00 120 12/16/24 13:30 12/16/24 12:00 97.8 97.8 Total Intake and Output 12/15/24 12/15/24 12/16/24 15:00 23:00 07:00 Intake Total 125.814 ml 250.625 ml 1222.5 ml Output Total 3100 ml 850 ml Balance 125.814 ml -2849.375 ml 372.5 ml medications Current Medications Medications Dose Ordered Sig/Saroj Route Start Time Stop Time Status Last Admin Dose Admin Pantoprazole Sodium 40 mg DAILY IV 12/11/24 10:00 12/16/24 09:45 40 MG Sodium Chloride 10 ml Q8HR IV 12/10/24 22:00 12/16/24 12:45 10 ML Nitroglycerin 0.4 mg Q5MINP PRN SL 12/10/24 17:45 Morphine Sulfate 2 mg Q30M PRN IV 12/10/24 17:45 Furosemide 20 mg DAILY IV 12/12/24 10:00 12/16/24 09:44 20 MG Norepinephrine Bitartrate 250 ml @ 3.75 mls/hr Q24H IV 12/11/24 16:45 12/13/24 17:20 7.5 MLS/HR Midazolam HCl 50 ml @ 1 mls/hr Q24H IV 12/11/24 16:45 12/14/24 10:14 5 MLS/HR Fentanyl Citrate 250 ml @ 2.5 mls/hr Q24H IV 12/11/24 16:45 12/14/24 10:12 7.5 MLS/HR Sodium Chloride 10 ml QSHIFT@10,22 IV 12/12/24 22:00 12/16/24 09:44 10 ML Methylprednisolone Sodium Succinate 40 mg BID IV 12/13/24 22:00 12/16/24 09:44 40 MG Ipratropium [place] 0.5 mg Q6HR NEB 12/13/24 12:00 12/16/24 11:47 0.5 MG Levalbuterol HCl 1.25 mg Q6HR NEB 12/13/24 12:00 12/16/24 11:47 1.25 MG Enoxaparin Sodium 70 mg Q12HR SC 12/14/24 22:00 12/16/24 09:45 70 MG Thiamine HCl 100 mg DAILY IV 12/15/24 10:00 12/16/24 09:44 100 MG Amiodarone HCl 200 mg Q12HR PO 12/15/24 22:00 12/16/24 09:44 200 MG Levalbuterol HCl 0.625 mg Q4HP PRN NEB 12/15/24 22:45 Ipratropium [place] 0.5 mg Q4HPRN PRN NEB 12/15/24 22:45 Acetaminophen/ Hydrocodone Bitart 1 tab Q6HPRN PRN PO 12/15/24 22:45 12/16/24 15:57 1 TAB Ceftriaxone Sodium 50 ml @ 100 mls/hr DAILY@09 IV 12/17/24 09:00 Doxycycline Hyclate 100 ml @ 50 mls/hr Q12H IV 12/16/24 15:15 12/16/24 15:23 50 MLS/HR Examination Physical examination: General Appearance: Alert, Oriented X2, mild distress HEENT: Atraumatic, PERRLA, EOMI, Mucous membrane moist/pink Respiratory: bilateral wheezing. Cardiovascular: Regular rate, Normal S1, Normal S2, No murmurs, no chest wall tenderness Abdominal: Normal bowel sounds, Soft, No tenderness, No hepatospenomegaly, No masses Extremities: No clubbing, No cyanosis, No edema, Normal pulses, No tenderness/swelling Skin: No rashes, No breakdown, No significant lesion Neuro: Strength at 5/5 X4 ext, Normal tone, Sensation intact, Cranial nerves 3- 12 NL, Reflexes 2+ Psych/Mental Status: Could not be assessed. laboratory and microbiology Laboratory Tests 12/16/24 03:05 Test 12/16/24 03:05 Range/Units Serum Glucose 147 H 74-106 mg/dL Microbiology Date/Time Source Procedure Growth Status 12/12/24 02:00 Blood Blood Culture - Preliminary NO GROWTH AFTER 72 HOURS OF INCUBATION. Resulted 12/11/24 18:30 Sputum Expectorated Sputum Gram Stain - Final Complete 12/11/24 18:30 Sputum Expectorated Sputum Respiratory Culture - Final Complete 12/10/24 20:35 Nose MRSA Screen - Final Complete Labs and/or images reviewed: Labs reviewed by me, Image(s) reviewed by me Problem List/Assessment/Plan Problem List/Assessment/Plan Assessment and plan: NEURO: Acute metabolic encephalopathy secondary to hypercapnia/carbon dioxide narcosis S/P extubation and on Oxymizer 5L CARDIOVASCULAR: Acute exacerbation of chronic systolic heart failure with mildly reduced ejection fraction Possible NSTEMI type 2 likely due to sepsis New onset paroxysmal Afib with RVR with secondary hypercoagulable state, on amiodarone drip - Initial EKG showing sinus tachycardia and right ventricular hypertrophy - Echo showed EF 45-55%, RVSP 42 mm Hg, [id number] TR - BNP is 581.32 - Troponin trends were 147 > 131> 123 - cardiology on board - IV Lasix 20 mg daily - Amiodarone 200 mg p.o. b.i.d. - Lovenox 70 mg SC bid PULMONARY: Acute hypoxic/hypercapnic respiratory failure Acute on chronic respiratory failure due to exacerbation of COPD Acute exacerbation of chronic COPD with superimposed pneumonia Possible gram positive/ gram negative pneumonia Sepsis due to pneumonia History of Pulmonary embolism - Chest x-ray showed Extensive scarring is seen in the bilateral mid to upper lung [place] with Superimposed pneumonia. - Medneb with levalbuterol and ipratropium q.6 hours - IV methylprednisolone 40 mg b.i.d. - IV vancomycin as per pharmacy and IV cefepime 1 g Q 8 hr - Covid, flu and MRSA are negative - Pending sputum culture - Lovenox 70 mg sc bid GASTROINTESTINAL: Hyperbilirubinemia with transaminitis likely due to sepsis GENITOURINARY: UDS is positive for opioids Acute kidney injury ruled out ENDOCRINE: Prediabetes, HbA1C 6.2 Euthyroid Sick syndrome - TSH is low, T3 and T4 are low METABOLIC: Moderate protein calorie malnutrition, albumin 3.1 Hyperkalemia resolved INFECTIOUS DISEASE: Sepsis due to pneumonia Lactic acidosis due to sepsis Acute exacerbation of chronic COPD with superimposed pneumonia - Blood culture showed no growth in 24 hours of incubation - Lactic acid is 4.3 - Given NS 500 mL bolus - IV vancomycin as per pharmacy and IV cefepime 1 g Q 8 hours DIET: Cardiac diet DVT prophylax: Lovenox GI prophylaxis: Protonix Bowel regimen: None Code status: Full code LINES/DRAINS/ACCESS: s/p extubation IV access: Peripheral line, right arm PICC line placed on 12/10/2024 Drips: None Kimble catheter: Placed on 12/10/2024 DISPOSITION: ICU Patient's status discussed with Sister, senior care specialist time spent more than 41 minutes, including patient care, chart review, and updating the family. Case discussed with Dr. Camargo Plan discussed with: Patient (RN), Other My Orders My Orders Orders - PRATIMA VALLE RESIDENT Procedure Category Date Status Time Speech Pathologist RONNIE 12/15/24 In Process Eval: Swall 18:20 Chest Portable XY 12/16/24 Resulted 04:00 Abg W/ Co-Ox RT 12/16/24 Logged 08:54 BIPAP RT 12/16/24 Logged 10:30 Ceftriaxone 1gm/50ml PHA 12/17/24 In Process D5w (Rocephin) 09:00 Ceftriaxone 1gm/50ml PHA 12/16/24 In Process D5w (Rocephin) 16:30 Doxycycline PHA 12/16/24 In Process 100mg/100ml 15:15 Doxycycline PHA 12/16/24 In Process 100mg/100ml 15:15 Dietary Evaluation Review Comments: 1) TF Glucerna 1.2 Bhupendra @ 70ml/hr x 24 hr (goal). Start @ 20ml/hr, increase 10ml/hr Q4H until goal rate is reached. TF at goal volume provides 100% energy & protein needs - 2016 kcal, 101 gm protein, 1352 ml free water 2) Water flush 170ml Q6H if allowed 3) TPN if NPO>7 days 4) Monitor BW, lab values and skin integrity Expected Outcomes/Goals: To meet >75% estimated needs Fu 2-3 days PRATIMA VALLE RESIDENT December 16, 2024 16:27
--- NOTE | 2024-12-16 17:46 | DVHTSRES ---
Transfer Summary Transfer Summary Resident Creating Document: LEONARDPRATIMA RESIDENT Date of Admission December 10, 2024 at 17:35 Date of Transfer: December 16, 2024 Transfer Diagnosis Acute hypercapnic encephalopathy, status post extubation, acute exacerbation of chronic COPD, acute exacerbation of CHF Brief Hx & Hospital Course: This is a 59-year-old male with past medical history of hypertension, COPD on home oxygen 3 L, PE on Eliquis, CHF, alcohol abuse disorder present date initially with chest pain and severe respiratory distress. ACS was ruled out and patient underwent emergent intubation to protect the airway. The patient is currently status post extubation on Oxymizer 5 L and BiPAP 10/5 PRN. The patient has severe COPD with emphysematous changes in bilateral lung on CT chest. The patient has also superimposed pneumonia on acute exacerbation of COPD. Culture was negative and patient was initially treated with broad- spectrum antibiotic IV vancomycin as per pharmacy, IV cefepime 1 g Q 8 hours. Today we deescalate the antibiotic to IV ceftriaxone 1 g daily, IV doxycycline 100 mg b.i.d. DC Levaquin because the patient has prolonged QT . The patient had 2 episodes of AFib with RVR and spontaneously converted to sinus rhythm started on amiodarone drip before and later oral amiodarone 200 mg p.o. b.i.d. and also therapeutic Lovenox 70 mg sc b.i.d. for prevention of secondary hypercoagulable state. Post extubation the patient passed the swallow evaluation and currently on cardiac diet. Probably the patient will be downgraded to telemetry tomorrow. Transfer Status ICU PRATIMA VALLE RESIDENT December 16, 2024 17:46
[2024-12-16] MEDS: cefTRIAXone 1GM/50ML D5W 50 ML IV ONE (17:51)
[2024-12-17] VITALS (89 sets, daily range): BP systolic 127–171; BP diastolic 90–136; PULSE 87–130; RESP 14–33; TEMP 97.3–98.5; O2SAT 75–100
[2024-12-17 03:50] LABS: Basophils # (auto) 0 10 ^3/uL (0-0.2); Basophils % (auto) 0.1 % (0.0-2.0); Eosinophils # (auto) 0 10 ^3/uL (0-0.8); Hematocrit 40.8 % (41.0-53.0); Hemoglobin 13.5 g/dL (13.5-17.5); Lymphocytes # (auto) 0.2 10 ^3/uL (0.4-5.4); Lymphocytes % (auto) 1.7 % (10.0-50.0); Mean Corpuscular Hemoglobin 32.6 pg (28.0-32.0); Mean Corpuscular Hgb Conc. 33.1 g/dL (32.0-36.0); Mean Corpuscular Volume 98.6 fL (80.0-100.0); Monocytes # (auto) 0.2 10 ^3/uL (0-1.3); Monocytes % (auto) 1.5 % (0.0-12.0); Neutrophils # (auto) 12.3 10 ^3/uL (1.6-8.6); Neutrophils % (auto) 96.7 % (37.0-80.0); Nucleated Red Blood Cells % 0.1 %; Platelet Count (auto) 177 10^3/uL (140-450); Red Blood Cells 4.14 10^6/uL (4.5-5.90); White Blood Cell 12.7 10^3/uL (4.4-10.8)
[2024-12-17 03:59] LABS: Anion Gap 4 (5-15); Calcium 8.9 mg/dL (8.7-10.4); Chloride 100 mmol/L (98-107); Potassium 4.7 mmol/L (3.5-5.1); Sodium 140 mmol/L (136-145)
[2024-12-17 04:05] LABS: BUN/Creatinine Ratio 39.2 (10.0-20.0)
[2024-12-17 04:09] LABS: Blood Urea Nitrogen 31 mg/dL (9-23); Carbon Dioxide 36 mmol/L (20-31); Glucose 144 mg/dL (74-106)
--- NOTE | 2024-12-17 06:01 | DVH ---
CHEST RADIOGRAPH Indication: Aspiration pneumonia Technique: Single frontal view of the chest was obtained Comparison: XY CHEST PORTABLE on DOS: 12/16/24, XY CHEST PORTABLE on DOS: 12/15/24, XY CHEST PORTABLE o n DOS: 12/14/24 IMPRESSION: Heart appears stable in size. Patchy opacities appear similar. No sizable effusion or pneumothorax. R ight PICC line tip in the region of the superior vena cava. No significant interval change.
[2024-12-17] MEDS: cefTRIAXone 1GM/50ML D5W 50 ML IV SCH (08:28)
--- NOTE | 2024-12-17 08:31 | DVHPN2 ---
Progress Note - Dictate Date Seen: December 17, 2024 Medical Necessity Reason Pt with a Central, PICC or Fol: Yes The following are medically ne: Central Line vital signs Vital Sign Date Time Temp Pulse Resp B/P (MAP) Pulse Ox O2 Delivery O2 Flow Rate FiO2 12/17/24 08:15 91 24 97 12/17/24 08:00 Oxymizer 5 N/A 12/17/24 08:00 98.5 98.5 Total Intake and Output 12/16/24 12/16/24 12/17/24 15:00 23:00 07:00 Intake Total 43.83 ml 1390 ml 480 ml Output Total 1200 ml 650 ml Balance 43.83 ml 190 ml -170 ml medications Current Medications Medications Dose Ordered Sig/Saroj Route Start Time Stop Time Status Last Admin Dose Admin Pantoprazole Sodium 40 mg DAILY IV 12/11/24 10:00 12/16/24 09:45 40 MG Sodium Chloride 10 ml Q8HR IV 12/10/24 22:00 12/17/24 06:02 10 ML Nitroglycerin 0.4 mg Q5MINP PRN SL 12/10/24 17:45 Morphine Sulfate 2 mg Q30M PRN IV 12/10/24 17:45 Furosemide 20 mg DAILY IV 12/12/24 10:00 12/16/24 09:44 20 MG Norepinephrine Bitartrate 250 ml @ 3.75 mls/hr Q24H IV 12/11/24 16:45 12/13/24 17:20 7.5 MLS/HR Midazolam HCl 50 ml @ 1 mls/hr Q24H IV 12/11/24 16:45 12/14/24 10:14 5 MLS/HR Fentanyl Citrate 250 ml @ 2.5 mls/hr Q24H IV 12/11/24 16:45 12/14/24 10:12 7.5 MLS/HR Sodium Chloride 10 ml QSHIFT@10,22 IV 12/12/24 22:00 12/16/24 21:43 10 ML Methylprednisolone Sodium Succinate 40 mg BID IV 12/13/24 22:00 12/16/24 21:43 40 MG Ipratropium [place] 0.5 mg Q6HR NEB 12/13/24 12:00 12/17/24 07:28 0.5 MG Levalbuterol HCl 1.25 mg Q6HR NEB 12/13/24 12:00 12/17/24 07:28 1.25 MG Enoxaparin Sodium 70 mg Q12HR SC 12/14/24 22:00 12/16/24 09:45 70 MG Thiamine HCl 100 mg DAILY IV 12/15/24 10:00 12/16/24 09:44 100 MG Amiodarone HCl 200 mg Q12HR PO 12/15/24 22:00 12/16/24 21:43 200 MG Levalbuterol HCl 0.625 mg Q4HP PRN NEB 12/15/24 22:45 Ipratropium [place] 0.5 mg Q4HPRN PRN NEB 12/15/24 22:45 Acetaminophen/ Hydrocodone Bitart 1 tab Q6HPRN PRN PO 12/15/24 22:45 12/16/24 22:12 1 TAB Ceftriaxone Sodium 50 ml @ 100 mls/hr DAILY@09 IV 12/17/24 09:00 12/17/24 08:28 100 MLS/HR Doxycycline Hyclate 100 ml @ 50 mls/hr Q12H IV 12/16/24 15:15 12/17/24 03:14 50 MLS/HR laboratory and microbiology Laboratory Tests 12/17/24 03:25 Test 12/17/24 03:25 Range/Units Serum Glucose 144 H 74-106 mg/dL Assessment/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 Start @ 20ml/hr, increase 10ml/hr Q4H until goal rate is reached. TF at goal volume provides 100% energy & protein needs - 2016 kcal, 101 gm protein, 1352 ml free water 2) Water flush 170ml Q6H if allowed 3) TPN if NPO>7 days 4) Monitor BW, lab values and skin integrity Expected Outcomes/Goals: To meet >75% estimated needs Fu 2-3 days Plan discussed with: Other (RN) BRANDIN TORRES MD December 17, 2024 08:31
[2024-12-17] MEDS ORDERED: levoFLOXacin 500MG 100 ML IV SCH (10:00)
--- NOTE | 2024-12-17 16:37 | DVHPN2 ---
Reviewed: Care Plan, H&P, Labs, Medications Changes from previous H/P or p: No Changes General: Per HPI Objective Vitals Vital Signs Date Time Temp Pulse Resp B/P (MAP) Pulse Ox O2 Delivery O2 Flow Rate FiO2 12/17/24 15:30 87 26 100 12/17/24 14:00 Oxymizer 5 N/A 12/17/24 12:00 98.5 98.5 Intake/Output Intake and Output 12/17/24 07:00 Intake Total 1913.83 ml Output Total 1850 ml Balance 63.83 ml Intake Oral 1710 ml IV Total 203.83 ml Output Urine Total 1850 ml Stool Total 0 ml General Appearance: Alert, Oriented X3 Cardiovascular: Regular rate, Normal S2 Extremities: No cyanosis, No edema Neuro: Normal speech Medications Current Medications Medications Dose Ordered Sig/Saroj Route Start Time Stop Time Status Last Admin Dose Admin Pantoprazole Sodium 40 mg DAILY IV 12/11/24 10:00 12/17/24 09:13 40 MG Sodium Chloride 10 ml Q8HR IV 12/10/24 22:00 12/17/24 15:33 10 ML Nitroglycerin 0.4 mg Q5MINP PRN SL 12/10/24 17:45 Morphine Sulfate 2 mg Q30M PRN IV 12/10/24 17:45 Furosemide 20 mg DAILY IV 12/12/24 10:00 12/17/24 09:33 20 MG Norepinephrine Bitartrate 250 ml @ 3.75 mls/hr Q24H IV 12/11/24 16:45 12/13/24 17:20 7.5 MLS/HR Midazolam HCl 50 ml @ 1 mls/hr Q24H IV 12/11/24 16:45 12/14/24 10:14 5 MLS/HR Fentanyl Citrate 250 ml @ 2.5 mls/hr Q24H IV 12/11/24 16:45 12/14/24 10:12 7.5 MLS/HR Sodium Chloride 10 ml QSHIFT@10,22 IV 12/12/24 22:00 12/17/24 09:14 10 ML Methylprednisolone Sodium Succinate 40 mg BID IV 12/13/24 22:00 12/17/24 09:14 40 MG Ipratropium [place] 0.5 mg Q6HR NEB 12/13/24 12:00 12/17/24 12:21 0.5 MG Levalbuterol HCl 1.25 mg Q6HR NEB 12/13/24 12:00 12/17/24 12:21 1.25 MG Enoxaparin Sodium 70 mg Q12HR SC 12/14/24 22:00 12/17/24 09:13 70 MG Thiamine HCl 100 mg DAILY IV 12/15/24 10:00 12/17/24 09:13 100 MG Amiodarone HCl 200 mg Q12HR PO 12/15/24 22:00 12/17/24 09:11 200 MG Levalbuterol HCl 0.625 mg Q4HP PRN NEB 12/15/24 22:45 Ipratropium [place] 0.5 mg Q4HPRN PRN NEB 12/15/24 22:45 Acetaminophen/ Hydrocodone Bitart 1 tab Q6HPRN PRN PO 12/15/24 22:45 12/17/24 15:34 1 TAB Ceftriaxone Sodium 50 ml @ 100 mls/hr DAILY@09 IV 12/17/24 09:00 12/17/24 08:28 100 MLS/HR Doxycycline Hyclate 100 ml @ 50 mls/hr Q12H IV 12/16/24 15:15 12/17/24 15:35 50 MLS/HR Laboratory Results Laboratory Tests 12/17/24 03:25 Chemistry Test 12/17/24 03:25 Calcium Level 8.9 mg/dL (8.7-10.4) Urinalysis Test 12/10/24 13:10 Urine Color Colorless (Yellow) Urine Clarity Clear (Clear) Urine pH 5.5 (5.0-9.0) Urine Specific [place] 1.008 (1.001-1.035) Urine Protein Negative (Negative) Urine Ketones Negative (Negative) Urine Blood Negative /uL (Negative) Urine Nitrite Negative (Negative) Urine Bilirubin Negative (Negative) Urine Urobilinogen Normal mg/dL (Negative) Urine Leukocyte Esterase Negative /uL (Negative) Urine RBC <1 /hpf (0 - 3) Urine Microscopic WBC < 1 /HPF (0-3) Urine Squamous Epithelial Cells None seen /hpf (<5) Urine Bacteria Few /hpf (None Seen) H Urine Glucose Normal mg/dL (Normal) Microbiology Microbiology Date/Time Source Procedure Growth Status 12/12/24 02:00 Blood Blood Culture - Final NO GROWTH AFTER 5 DAYS OF INCUBATION. Complete 12/11/24 18:30 Sputum Expectorated Sputum Gram Stain - Final Complete 12/11/24 18:30 Sputum Expectorated Sputum Respiratory Culture - Final Complete 12/10/24 20:35 Nose MRSA Screen - Final Complete Labs and/or images reviewed: Labs reviewed by me, Image(s) reviewed by me Assessment/Plan Assessment/Plan NEURO: Acute metabolic encephalopathy secondary to hypercapnia/carbon dioxide narcosis S/P extubation and on Oxymizer 5L CARDIOVASCULAR: Acute exacerbation of chronic systolic heart failure with mildly reduced ejection fraction Possible NSTEMI type 2 likely due to sepsis New onset paroxysmal Afib with RVR with secondary hypercoagulable state, on amiodarone drip - Initial EKG showing sinus tachycardia and right ventricular hypertrophy - Echo showed EF 45-55%, RVSP 42 mm Hg, [id number] TR - BNP is 581.32 - Troponin trends were 147 > 131> 123 - cardiology on board - IV Lasix 20 mg daily - Amiodarone 200 mg p.o. b.i.d. PULMONARY: Acute hypoxic/hypercapnic respiratory failure Acute on chronic respiratory failure due to exacerbation of COPD Acute exacerbation of chronic COPD with superimposed pneumonia Possible gram positive/ gram negative pneumonia Sepsis due to pneumonia History of Pulmonary embolism - Chest x-ray showed Extensive scarring is seen in the bilateral mid to upper lung [place] with Superimposed pneumonia. - Medneb with levalbuterol and ipratropium q.6 hours - IV methylprednisolone 40 mg b.i.d. - IV vancomycin as per pharmacy and IV cefepime 1 g Q 8 hr - Covid, flu and MRSA are negative - Pending sputum culture - Lovenox 70 mg sc bid GASTROINTESTINAL: Hyperbilirubinemia with transaminitis likely due to sepsis GENITOURINARY: UDS is positive for opioids Acute kidney injury ruled out ENDOCRINE: Prediabetes, HbA1C 6.2 Euthyroid Sick syndrome - TSH is low, T3 and T4 are low METABOLIC: Moderate protein calorie malnutrition, albumin 3.1 Hyperkalemia resolved INFECTIOUS DISEASE: Sepsis due to pneumonia Lactic acidosis due to sepsis Acute exacerbation of chronic COPD with superimposed pneumonia - Blood culture showed no growth in 24 hours of incubation - Lactic acid is 4.3 - Given NS 500 mL bolus - IV vancomycin as per pharmacy and IV cefepime 1 g Q 8 hours DIET: Cardiac diet DVT prophylax: Lovenox GI prophylaxis: Protonix Bowel regimen: None Code status: Full code LINES/DRAINS/ACCESS: s/p extubation IV access: Peripheral line, right arm PICC line placed on 12/10/2024 Drips: None Kimble catheter: Placed on 12/10/2024 12/17/2024 pt is still on oxymizer alert and tolerating food no continuous drip plan is to downgrade to Tele and start PT/OT DISPOSITION: ICU Patient's status discussed with Sister, adult care manager time spent more than 41 minutes, including patient care, chart review, and updating the family. Plan discussed with: Patient Date of Service: December 17, 2024 Billing Provider: GYPSY PRAKASH DO Common Visit Codes: [id number] CARE 30-74 MIN GYPSY PRAKASH DO December 17, 2024 16:37
[2024-12-18] VITALS (53 sets, daily range): BP systolic 118–154; BP diastolic 75–107; PULSE 86–107; RESP 16–27; TEMP 97.5–98.4; O2SAT 69–100
--- NOTE | 2024-12-18 03:28 | DVH ---
CHEST RADIOGRAPH Indication: COPD EXACERBATION Technique: Single frontal view of the chest was obtained COMPARISON: XY CHEST PORTABLE on DOS: 12/17/24, XY CHEST PORTABLE on DOS: 12/16/24, XY CHEST PORTABLE o n DOS: 12/15/24, XY CHEST PORTABLE on DOS: 12/14/24, XY CHEST PORTABLE on DOS: 12/13/24 FINDINGS: Lines and Tubes: Right peripherally inserted central catheter unchanged. Lungs: Grossly stable appearing multifocal bilateral pulmonary opacities. No evidence of focal consol idation. Pleura: No effusion. No pneumothorax. Cardiomediastinal contours: Unremarkable Bones: Unremarkable IMPRESSION: 1. Stable appearing multifocal bilateral pulmonary opacities. 2. Right PICC.
[2024-12-18] MEDS: hydrALAZINE HCL 20 MG/ML VL IV PRN (03:41)
[2024-12-18 03:47] LABS: Basophils # (auto) 0 10 ^3/uL (0-0.2); Basophils % (auto) 0.2 % (0.0-2.0); Eosinophils # (auto) 0 10 ^3/uL (0-0.8); Hematocrit 42.4 % (41.0-53.0); Hemoglobin 13.9 g/dL (13.5-17.5); Lymphocytes # (auto) 0.2 10 ^3/uL (0.4-5.4); Lymphocytes % (auto) 1.2 % (10.0-50.0); Mean Corpuscular Hemoglobin 32.1 pg (28.0-32.0); Mean Corpuscular Hgb Conc. 32.9 g/dL (32.0-36.0); Mean Corpuscular Volume 97.4 fL (80.0-100.0); Monocytes # (auto) 0.4 10 ^3/uL (0-1.3); Neutrophils # (auto) 17.3 10 ^3/uL (1.6-8.6); Neutrophils % (auto) 96.6 % (37.0-80.0); Platelet Count (auto) 224 10^3/uL (140-450); Red Blood Cells 4.35 10^6/uL (4.5-5.90); Red Cell Distribution Width 13.8 % (11.8-14.3); White Blood Cell 17.9 10^3/uL (4.4-10.8)
[2024-12-18 04:06] LABS: Albumin 3.6 g/dL (3.2-4.8); Alkaline Phosphatase 84 U/L (46-116); Anion Gap 4 (5-15); BUN/Creatinine Ratio 38.3 (10.0-20.0); Bilirubin, Total 0.7 mg/dL (0.2-1.0); Potassium 4.3 mmol/L (3.5-5.1); Sodium 141 mmol/L (136-145); Total Protein 5.9 g/dL (5.7-8.2)
[2024-12-18 04:07] LABS: Alanine Aminotransferase 59 U/L (7-40); Aspartate Aminotransferase 53 U/L (13-40); Blood Urea Nitrogen 31 mg/dL (9-23); Calcium 8.5 mg/dL (8.7-10.4); Chloride 97 mmol/L (98-107); Glucose 116 mg/dL (74-106)
[2024-12-18 04:09] LABS: Carbon Dioxide 40 mmol/L (20-31)
--- NOTE | 2024-12-18 09:37 | DVHPN2 ---
Reviewed: Care Plan, H&P, Labs, Medications Changes from previous H/P or p: No Changes General: Per HPI Objective Vitals Vital Signs Date Time Temp Pulse Resp B/P (MAP) Pulse Ox O2 Delivery O2 Flow Rate FiO2 12/18/24 09:02 97.5 95 23 132/82 (99) 97 97.5 12/18/24 08:00 Oxymizer 5 N/A Intake/Output Intake and Output 12/18/24 06:59 Intake Total 690 ml Output Total 1900 ml Balance -1210 ml Intake Oral 540 ml IV Total 150 ml Output Urine Total 1900 ml # Bowel Movements 2 General Appearance: Alert, Oriented X3 Cardiovascular: Regular rate, Normal S2 Extremities: No cyanosis, No edema Neuro: Normal speech Medications Current Medications Medications Dose Ordered Sig/Saroj Route Start Time Stop Time Status Last Admin Dose Admin Pantoprazole Sodium 40 mg DAILY IV 12/11/24 10:00 12/17/24 09:13 40 MG Sodium Chloride 10 ml Q8HR IV 12/10/24 22:00 12/17/24 21:32 10 ML Nitroglycerin 0.4 mg Q5MINP PRN SL 12/10/24 17:45 Morphine Sulfate 2 mg Q30M PRN IV 12/10/24 17:45 Furosemide 20 mg DAILY IV 12/12/24 10:00 12/17/24 09:33 20 MG Norepinephrine Bitartrate 250 ml @ 3.75 mls/hr Q24H IV 12/11/24 16:45 12/13/24 17:20 7.5 MLS/HR Midazolam HCl 50 ml @ 1 mls/hr Q24H IV 12/11/24 16:45 12/14/24 10:14 5 MLS/HR Fentanyl Citrate 250 ml @ 2.5 mls/hr Q24H IV 12/11/24 16:45 12/14/24 10:12 7.5 MLS/HR Sodium Chloride 10 ml QSHIFT@10,22 IV 12/12/24 22:00 12/17/24 21:32 10 ML Methylprednisolone Sodium Succinate 40 mg BID IV 12/13/24 22:00 12/17/24 21:32 40 MG Ipratropium [place] 0.5 mg Q6HR NEB 12/13/24 12:00 12/18/24 07:12 0.5 MG Levalbuterol HCl 1.25 mg Q6HR NEB 12/13/24 12:00 12/18/24 07:12 1.25 MG Enoxaparin Sodium 70 mg Q12HR SC 12/14/24 22:00 12/17/24 09:13 70 MG Thiamine HCl 100 mg DAILY IV 12/15/24 10:00 12/17/24 09:13 100 MG Amiodarone HCl 200 mg Q12HR PO 12/15/24 22:00 12/17/24 21:32 200 MG Levalbuterol HCl 0.625 mg Q4HP PRN NEB 12/15/24 22:45 Ipratropium [place] 0.5 mg Q4HPRN PRN NEB 12/15/24 22:45 Acetaminophen/ Hydrocodone Bitart 1 tab Q6HPRN PRN PO 12/15/24 22:45 12/18/24 04:17 1 TAB Ceftriaxone Sodium 50 ml @ 100 mls/hr DAILY@09 IV 12/17/24 09:00 12/17/24 08:28 100 MLS/HR Doxycycline Hyclate 100 ml @ 50 mls/hr Q12H IV 12/16/24 15:15 12/18/24 03:29 50 MLS/HR Hydralazine HCl 10 mg Q6HP PRN IV 12/17/24 22:45 12/18/24 03:41 10 MG Laboratory Results Laboratory Tests 12/18/24 03:39 Chemistry Test 12/18/24 03:39 Albumin 3.6 g/dL (3.2-4.8) Calcium Level 8.5 mg/dL (8.7-10.4) L Total Protein 5.9 g/dL (5.7-8.2) LFT Test 12/18/24 03:39 Alanine Aminotransferase (ALT) 59 U/L (7-40) H Alkaline Phosphatase 84 U/L (46-116) Aspartate Amino Transferase (AST) 53 U/L (13-40) H Total Bilirubin 0.7 mg/dL (0.2-1.0) Urinalysis Test 12/10/24 13:10 Urine Color Colorless (Yellow) Urine Clarity Clear (Clear) Urine pH 5.5 (5.0-9.0) Urine Specific [place] 1.008 (1.001-1.035) Urine Protein Negative (Negative) Urine Ketones Negative (Negative) Urine Blood Negative /uL (Negative) Urine Nitrite Negative (Negative) Urine Bilirubin Negative (Negative) Urine Urobilinogen Normal mg/dL (Negative) Urine Leukocyte Esterase Negative /uL (Negative) Urine RBC <1 /hpf (0 - 3) Urine Microscopic WBC < 1 /HPF (0-3) Urine Squamous Epithelial Cells None seen /hpf (<5) Urine Bacteria Few /hpf (None Seen) H Urine Glucose Normal mg/dL (Normal) Microbiology Microbiology Date/Time Source Procedure Growth Status 12/12/24 02:00 Blood Blood Culture - Final NO GROWTH AFTER 5 DAYS OF INCUBATION. Complete 12/11/24 18:30 Sputum Expectorated Sputum Gram Stain - Final Complete 12/11/24 18:30 Sputum Expectorated Sputum Respiratory Culture - Final Complete 12/10/24 20:35 Nose MRSA Screen - Final Complete Assessment/Plan Assessment/Plan NEURO: Acute metabolic encephalopathy secondary to hypercapnia/carbon dioxide narcosis S/P extubation and on Oxymizer 5L CARDIOVASCULAR: Acute exacerbation of chronic systolic heart failure with mildly reduced ejection fraction Possible NSTEMI type 2 likely due to sepsis New onset paroxysmal Afib with RVR with secondary hypercoagulable state, on amiodarone drip - Initial EKG showing sinus tachycardia and right ventricular hypertrophy - Echo showed EF 45-55%, RVSP 42 mm Hg, [id number] TR - BNP is 581.32 - Troponin trends were 147 > 131> 123 - cardiology on board - IV Lasix 20 mg daily - Amiodarone 200 mg p.o. b.i.d. PULMONARY: Acute hypoxic/hypercapnic respiratory failure Acute on chronic respiratory failure due to exacerbation of COPD Acute exacerbation of chronic COPD with superimposed pneumonia Possible gram positive/ gram negative pneumonia Sepsis due to pneumonia History of Pulmonary embolism - Chest x-ray showed Extensive scarring is seen in the bilateral mid to upper lung douglas with Superimposed pneumonia. - Medneb with levalbuterol and ipratropium q.6 hours - IV methylprednisolone 40 mg b.i.d. - IV vancomycin as per pharmacy and IV cefepime 1 g Q 8 hr - Covid, flu and MRSA are negative - Pending sputum culture - Lovenox 70 mg sc bid GASTROINTESTINAL: Hyperbilirubinemia with transaminitis likely due to sepsis GENITOURINARY: UDS is positive for opioids Acute kidney injury ruled out ENDOCRINE: Prediabetes, HbA1C 6.2 Euthyroid Sick syndrome - TSH is low, T3 and T4 are low METABOLIC: Moderate protein calorie malnutrition, albumin 3.1 Hyperkalemia resolved INFECTIOUS DISEASE: Sepsis due to pneumonia Lactic acidosis due to sepsis Acute exacerbation of chronic COPD with superimposed pneumonia - Blood culture showed no growth in 24 hours of incubation - Lactic acid is 4.3 - Given NS 500 mL bolus - IV vancomycin as per pharmacy and IV cefepime 1 g Q 8 hours DIET: Cardiac diet DVT prophylax: Lovenox GI prophylaxis: Protonix Bowel regimen: None Code status: Full code LINES/DRAINS/ACCESS: s/p extubation IV access: Peripheral line, right arm PICC line placed on 12/10/2024 Drips: None Kimble catheter: Placed on 12/10/2024 12/17/2024 pt is still on oxymizer alert and tolerating food no continuous drip plan is to downgrade to Tele and start PT/OT 12/18/2024: pt refuses Lovenox, after discussing with pt he agrees to have it administered pt wants Kimble's out, agreed discussed with nursing staff at bedside downgrade to Tele when bed is available. PT to evaluate, goal is get pt to nasal cannula with 2-3 liters and d/c when appropriate. DISPOSITION: ICU Patient's status discussed with Sister, manager managed care time spent more than 41 minutes, including patient care, chart review, and updating the family. Plan discussed with: Patient My Orders Orders - GYPSY PRAKASH DO Procedure Category Date Status Time Pt Request For Service PT 12/18/24 Logged 09:30 D/C Lamin TRUJILLO 12/18/24 In Process 09:30 Date of Service: Dec 18, 2024 Billing Provider: GYPSY PRAKASH DO Common Visit Codes: [id number] CARE 30-74 MIN GYPSY PRAKASH DO Dec 18, 2024 09:37
--- NOTE | 2024-12-18 12:11 | DVHPN2 ---
Progress Note - Dictate Date Seen: Dec 18, 2024 Medical Necessity Reason Pt with a Central, PICC or Fol: Yes The following are medically ne: Central Line vital signs Vital Sign Date Time Temp Pulse Resp B/P (MAP) Pulse Ox O2 Delivery O2 Flow Rate FiO2 12/18/24 11:01 100 25 130/99 (109) 85 12/18/24 10:00 Oxymizer 5 N/A 12/18/24 09:02 97.5 97.5 Total Intake and Output 12/17/24 12/17/24 12/18/24 14:59 22:59 06:59 Intake Total 50 ml 580 ml 60 ml Output Total 1500 ml 400 ml Balance 50 ml -920 ml -340 ml medications Current Medications Medications Dose Ordered Sig/Saroj Route Start Time Stop Time Status Last Admin Dose Admin Pantoprazole Sodium 40 mg DAILY IV 12/11/24 10:00 12/18/24 09:25 40 MG Sodium Chloride 10 ml Q8HR IV 12/10/24 22:00 12/17/24 21:32 10 ML Nitroglycerin 0.4 mg Q5MINP PRN SL 12/10/24 17:45 Morphine Sulfate 2 mg Q30M PRN IV 12/10/24 17:45 Furosemide 20 mg DAILY IV 12/12/24 10:00 12/18/24 09:25 20 MG Norepinephrine Bitartrate 250 ml @ 3.75 mls/hr Q24H IV 12/11/24 16:45 12/13/24 17:20 7.5 MLS/HR Midazolam HCl 50 ml @ 1 mls/hr Q24H IV 12/11/24 16:45 12/14/24 10:14 5 MLS/HR Fentanyl Citrate 250 ml @ 2.5 mls/hr Q24H IV 12/11/24 16:45 12/14/24 10:12 7.5 MLS/HR Sodium Chloride 10 ml QSHIFT@10,22 IV 12/12/24 22:00 12/18/24 09:25 10 ML Methylprednisolone Sodium Succinate 40 mg BID IV 12/13/24 22:00 12/18/24 09:25 40 MG Ipratropium [place] 0.5 mg Q6HR NEB 12/13/24 12:00 12/18/24 07:12 0.5 MG Levalbuterol HCl 1.25 mg Q6HR NEB 12/13/24 12:00 12/18/24 07:12 1.25 MG Enoxaparin Sodium 70 mg Q12HR SC 12/14/24 22:00 12/18/24 09:45 70 MG Thiamine HCl 100 mg DAILY IV 12/15/24 10:00 12/18/24 09:25 100 MG Amiodarone HCl 200 mg Q12HR PO 12/15/24 22:00 12/18/24 09:25 200 MG Levalbuterol HCl 0.625 mg Q4HP PRN NEB 12/15/24 22:45 Ipratropium [place] 0.5 mg Q4HPRN PRN NEB 12/15/24 22:45 Acetaminophen/ Hydrocodone Bitart 1 tab Q6HPRN PRN PO 12/15/24 22:45 12/18/24 10:48 1 TAB Ceftriaxone Sodium 50 ml @ 100 mls/hr DAILY@09 IV 12/17/24 09:00 12/18/24 09:24 100 MLS/HR Doxycycline Hyclate 100 ml @ 50 mls/hr Q12H IV 12/16/24 15:15 12/18/24 03:29 50 MLS/HR Hydralazine HCl 10 mg Q6HP PRN IV 12/17/24 22:45 12/18/24 03:41 10 MG laboratory and microbiology Laboratory Tests 12/18/24 03:39 Test 12/18/24 03:39 Range/Units Serum Glucose 116 H 74-106 mg/dL Assessment/Plan mason liner rounds ICU Impression Acute hypoxemic respiratory failure Acute decompensated heart failure Acute COPD exacerbation Pneumonia Patient seen and examined on the ICU Events s/p extubation doing well CT chest severe centrilobular emphysema Management 02 as needed bipap at night and prn daytime Continue antibiotics Bronchodilators Steroids with taper for COPD management Monitor renal function Monitor electrolytes DVT prophylaxis ok to d/grade Critical care time 35 minutes Dietary Evaluation Review Comments: 1) TF Glucerna 1.2 Bhupendra @ 70ml/hr x 24 hr (goal). Start @ 20ml/hr, increase 10ml/hr Q4H until goal rate is reached. TF at goal volume provides 100% energy & protein needs - 2016 kcal, 101 gm protein, 1352 ml free water 2) Water flush 170ml Q6H if allowed 3) TPN if NPO>7 days 4) Monitor BW, lab values and skin integrity Expected Outcomes/Goals: To meet >75% estimated needs Fu 2-3 days Plan discussed with: Other (rn) BRANDIN TORRES MD Dec 18, 2024 12:11
[2024-12-19] VITALS (14 sets, daily range): BP systolic 124–141; BP diastolic 75–102; PULSE 66–95; RESP 16–19; TEMP 97–98.6; O2SAT 95–100
--- NOTE | 2024-12-19 11:11 | DVH ---
EXAM: XY CHEST XRAY 1 VIEW Indication: Pain. PNEUMONIA Technique: Single frontal view of the chest was obtained Comparison: XY CHEST PORTABLE on DOS: 12/18/24, XY CHEST PORTABLE on DOS: 12/17/24, XY CHEST PORTABLE on DOS: 12/16/24, XY CHEST PORTABLE on DOS: 12/15/24, XY CHEST PORTABLE on DOS: 12/14/24 FINDINGS: Lines and Tubes: Right PICC tip projects over superior vena cava. Lungs: Multifocal bilateral airspace opacities Pleura: No effusion. No pneumothorax. Cardiomediastinal contours: Unremarkable Bones: No acute osseous abnormality. IMPRESSION: No significant change compared to prior exam.
[2024-12-19 11:15] LABS: Basophils # (auto) 0 10 ^3/uL (0-0.2); Basophils % (auto) 0.4 % (0.0-2.0); Eosinophils # (auto) 0 10 ^3/uL (0-0.8); Lymphocytes # (auto) 0.1 10 ^3/uL (0.4-5.4); Lymphocytes % (auto) 1.1 % (10.0-50.0); Mean Corpuscular Hemoglobin 32.4 pg (28.0-32.0); Mean Corpuscular Hgb Conc. 32.6 g/dL (32.0-36.0); Mean Corpuscular Volume 99.6 fL (80.0-100.0); Monocytes # (auto) 0.3 10 ^3/uL (0-1.3); Monocytes % (auto) 2.4 % (0.0-12.0); Neutrophils # (auto) 12.3 10 ^3/uL (1.6-8.6); Neutrophils % (auto) 96.1 % (37.0-80.0); Platelet Count (auto) 228 10^3/uL (140-450); Red Blood Cells 4.32 10^6/uL (4.5-5.90); Red Cell Distribution Width 14.1 % (11.8-14.3); White Blood Cell 12.8 10^3/uL (4.4-10.8)
[2024-12-19 11:27] LABS: Alkaline Phosphatase 100 U/L (46-116); BUN/Creatinine Ratio 34.9 (10.0-20.0); Potassium 4.4 mmol/L (3.5-5.1); Sodium 140 mmol/L (136-145); Total Protein 6.1 g/dL (5.7-8.2)
[2024-12-19 11:28] LABS: Albumin 3.8 g/dL (3.2-4.8); Bilirubin, Total 0.7 mg/dL (0.2-1.0)
[2024-12-19 11:57] LABS: Alanine Aminotransferase 66 U/L (7-40); Anion Gap 3.99999 (5-15); Aspartate Aminotransferase 49 U/L (13-40); Blood Urea Nitrogen 30 mg/dL (9-23); Calcium 8.6 mg/dL (8.7-10.4); Chloride 96 mmol/L (98-107); Glucose 226 mg/dL (74-106)
[2024-12-19 11:58] LABS: Carbon Dioxide > 40 mmol/L (20-31)
--- NOTE | 2024-12-19 17:09 | DVHPNRES ---
Progress Note Date Seen: Dec 19, 2024 Resident Creating Document: ARTHUR AMEZQUITA RESIDENT Has the PT tested + for MRSA If YES, has PT been informed?: No Medical Necessity Reason Pt with a Central, PICC or Fol: No The following are medically ne: Central Line Medical Necessity Reason This is a 59-year-old man with past medical history of COPD, CHF, PE on Eliquis, hypertension, dyslipidemia, prediabetes presented to the emergency room via EMS with a chief complaint of chest pain x1 day. Upon assessment the patient was found on a tripod position with severe shortness of breath. He is a very poor historian. Denies chest pain. Per records, he was discharged from [facility] on 12/09/2024. The patient is unable to report diagnosis or treatment. EN route to the hospital he was medicated with ASA 324 mg, NTG SL, and found with BGL of 150 mg/dL. Upon arrival to the emergency room he underwent multiple 12 lead electrocardiograms x 2 revealing a sinus tachycardia rhythm up to 109 bpm and suggestive of right ventricular hypertrophy. Serial troponin levels peaked at 147 ng/L. Initial VBG was showing elevated pCO2 more than 150 and patient became altered, disoriented needed emergent intubation. Past medical history: COPD on home oxygen, CHF, PE, hypertension, dyslipidemia, prediabetes Past surgical history: None Family history : Noncontributory Social history: Lives alone, and has a caregiver. Smoker, alcoholic and used street drugs. Home medications: Med neb, Eliquis 2.5 mg b.i.d., aspirin 81 mg, atorvastatin 40 mg, furosemide 20 mg, gabapentin 100 mg b.i.d., losartan 50 mg, metoprolol succinate 25 mg, prednisone 20 mg b.i.d. Patient was seen and examined on the bedside. S/P extubation and currently on on 2L oxygen (his baseline) and eating well. PICC still in place. He has no new complaints. Subjective Review of Systems Constitutional: Denies fever no chills no feeling of malaise HEENT: Denies headache, ear pain, ear discharges, conjunctivitis, nasal discharge throat pain Cardiovascular: Denies chest pain, palpitation, orthopnea, PND, or pedal edema Respiratory: At baseline shortness of breath, Denies cough, sputum production, hemoptysis, GI: Denies abdominal pain, nausea, vomiting, diarrhea, hematemesis, hematochezia, : Denies frequency, urgency, hematuria, Endocrine: Denies unintentional weight gain or weight loss; Prediabetes Miguel: Denies easy bruising, bleeding disorders, epistaxis Musculoskeletal: Denies joint pains, muscle aches Psych: No evidence of depression, ronna, suicidal ideation Objective vital signs Vital Sign Date Time Temp Pulse Resp B/P (MAP) Pulse Ox O2 Delivery O2 Flow Rate FiO2 12/19/24 16:45 12/19/24 12:15 Nasal Cannula* 2 28 Total Intake and Output 12/18/24 12/18/24 12/19/24 15:00 23:00 07:00 Intake Total 100 ml 600 ml 0 ml Output Total 1050 ml Balance 100 ml -450 ml 0 ml medications Current Medications Medications Dose Ordered Sig/Saroj Route Start Time Stop Time Status Last Admin Dose Admin Sodium Chloride 10 ml Q8HR IV 12/10/24 22:00 12/19/24 14:27 10 ML Nitroglycerin 0.4 mg Q5MINP PRN SL 12/10/24 17:45 Morphine Sulfate 2 mg Q30M PRN IV 12/10/24 17:45 Sodium Chloride 10 ml QSHIFT@10,22 IV 12/12/24 22:00 12/19/24 10:26 10 ML Ipratropium [place] 0.5 mg Q6HR NEB 12/13/24 12:00 12/19/24 12:11 0.5 MG Levalbuterol HCl 1.25 mg Q6HR NEB 12/13/24 12:00 12/19/24 12:11 1.25 MG Amiodarone HCl 200 mg Q12HR PO 12/15/24 22:00 12/19/24 10:31 200 MG Levalbuterol HCl 0.625 mg Q4HP PRN NEB 12/15/24 22:45 Ipratropium [place] 0.5 mg Q4HPRN PRN NEB 12/15/24 22:45 Acetaminophen/ Hydrocodone Bitart 1 tab Q6HPRN PRN PO 12/15/24 22:45 12/19/24 04:27 1 TAB Hydralazine HCl 10 mg Q6HP PRN IV 12/17/24 22:45 12/18/24 03:41 10 MG Prednisone 40 mg DAILY PO 12/20/24 10:00 Apixaban 5 mg BID PO 12/19/24 22:00 Doxycycline Monohydrate 100 mg Q12HR PO 12/19/24 22:00 Furosemide 20 mg DAILY PO 12/20/24 10:00 Gabapentin 100 mg TID PO 12/19/24 22:00 Pantoprazole Sodium 40 mg DAILY@0600 PO 12/20/24 06:00 Examination General Appearance: Alert, Oriented X4, well groomed, smallish looking, muscle wasting HEENT: Atraumatic, PERRLA, EOMI, Mucous membrane moist/pink Respiratory: bilateral wheezing. Cardiovascular: Regular rate, Normal S1, Normal S2, No murmurs, no chest wall tenderness Abdominal: mildly distended, Normal bowel sounds, Soft, mild tenderness around left breast, No hepatospenomegaly, No masses Extremities: No clubbing, No cyanosis, No edema, Normal pulses, No tenderness/swelling Skin: No rashes, No breakdown, No significant lesion, hyperpigmentation below the left breast from shingles Neuro: Strength at 5/5 X4 ext, Normal tone, Sensation intact, Cranial nerves 3- 12 NL, Reflexes 2+ Psych/Mental Status: Could not be assessed. laboratory and microbiology Laboratory Tests 12/19/24 10:33 Test 12/19/24 10:33 Range/Units Serum Glucose 226 #H 74-106 mg/dL Microbiology Date/Time Source Procedure Growth Status 12/12/24 02:00 Blood Blood Culture - Final NO GROWTH AFTER 5 DAYS OF INCUBATION. Complete 12/11/24 18:30 Sputum Expectorated Sputum Gram Stain - Final Complete 12/11/24 18:30 Sputum Expectorated Sputum Respiratory Culture - Final Complete 12/10/24 20:35 Nose MRSA Screen - Final Complete Problem List/Assessment/Plan Problem List/Assessment/Plan Assessment and plan NEURO: Acute metabolic encephalopathy secondary to hypercapnia/carbon dioxide narcosis S/P extubation on 2L NC CARDIOVASCULAR: Acute exacerbation of chronic systolic heart failure with mildly reduced ejection fraction Possible NSTEMI type 2 likely due to sepsis New onset paroxysmal Afib with RVR with secondary hypercoagulable state, on amiodarone drip - Initial EKG showing sinus tachycardia and right ventricular hypertrophy - Echo showed EF 45-55%, RVSP 42 mm Hg, [id number] TR - BNP is 581.32 - Troponin trends were 147 > 131> 123 - cardiology on board - PO Lasix 20 mg daily - Amiodarone 200 mg p.o. b.i.d. - Lovenox 70 mg SC bid PULMONARY: Acute hypoxic/hypercapnic respiratory failure Acute on chronic respiratory failure due to exacerbation of COPD Acute exacerbation of chronic COPD with superimposed pneumonia Possible gram positive/ gram negative pneumonia Sepsis due to pneumonia History of Pulmonary embolism - Chest x-ray showed Extensive scarring is seen in the bilateral mid to upper lung [place] with Superimposed pneumonia. - Medneb with levalbuterol and ipratropium q.6 hours - Prednisone PO 40 mg daily - Doxycycline PO 100mg q12h - Covid, flu and MRSA are negative - Sputum culture: No micro organism seen - Lovenox 70 mg sc bid GASTROINTESTINAL: Hyperbilirubinemia with transaminitis likely due to sepsis GENITOURINARY: UDS is positive for opioids Acute kidney injury ruled out ENDOCRINE: Prediabetes, HbA1C 6.2 Euthyroid Sick syndrome - TSH is low, T3 and T4 are low METABOLIC: Moderate protein calorie malnutrition, albumin 3.1 Hyperkalemia resolved INFECTIOUS DISEASE: Sepsis due to pneumonia Lactic acidosis due to sepsis Acute exacerbation of chronic COPD with superimposed pneumonia - Blood culture showed no growth in 24 hours of incubation - Lactic acid is 4.3 - Given NS 500 mL bolus - IV vancomycin as per pharmacy and IV cefepime 1 g Q 8 hours DIET: Cardiac diet DVT prophylax: Lovenox GI prophylaxis: Protonix Bowel regimen: None Code status: Full code LINES/DRAINS/ACCESS: s/p extubation IV access: Peripheral line, right arm PICC line placed on 12/10/2024 Drips: None Kimble catheter: Placed on 12/10/2024, Discontinued DISPOSITION: Telemetry advance care planning- full code- time spent 19 mins Patient's status discussed with patient , RN Case discussed with Dr. Albarado Plan discussed with: Patient My Orders My Orders Orders - ARTHUR AMEZQUITA RESIDENT Procedure Category Date Status Time Chest Xray 1 View XY 12/19/24 Resulted 08:33 Dietary Evaluation Review Comments: 1) TF Glucerna 1.2 Bhupendra @ 70ml/hr x 24 hr (goal). Start @ 20ml/hr, increase 10ml/hr Q4H until goal rate is reached. TF at goal volume provides 100% energy & protein needs - 2016 kcal, 101 gm protein, 1352 ml free water 2) Water flush 170ml Q6H if allowed 3) TPN if NPO>7 days 4) Monitor BW, lab values and skin integrity Expected Outcomes/Goals: To meet >75% estimated needs Fu 2-3 days Date of Service: Dec 19, 2024 Billing Provider: IDALMIS ALBARADO MD Common Visit Codes: [id number] INP/OBS CARE(HIGH) Secondary Visit Codes: [id number] CARE PLAN 30 MINUTES ARTHUR AMEZQUITA RESIDENT Dec 19, 2024 17:09 IDALMIS ALBARADO MD Dec 20, 2024 15:25
[2024-12-19] MEDS: GABAPENTIN 100 MG CAP PO SCH (23:05)
[2024-12-19] MEDS: APIXABAN 5 MG TAB PO SCH (23:05)
[2024-12-19] MEDS: DOXYCYCLINE 100 MG TAB/CAP PO SCH (23:05)
[2024-12-20] VITALS (12 sets, daily range): BP systolic 89–147; BP diastolic 34–98; PULSE 62–89; RESP 16–19; TEMP 97.4–98.2; O2SAT 64–100
[2024-12-20] MEDS: PANTOPRAZOLE 40 MG TAB PO SCH (05:27)
[2024-12-20] MEDS: FUROSEMIDE 20 MG TAB PO SCH (10:00)
[2024-12-20] MEDS: predniSONE 20 MG TAB PO SCH (10:01)
[2024-12-20 10:45] LABS: Basophils # (auto) 0.1 10 ^3/uL (0-0.2); Basophils % (auto) 0.5 % (0.0-2.0); Eosinophils # (auto) 0 10 ^3/uL (0-0.8); Eosinophils % (auto) 0.2 % (0.0-7.0); Hematocrit 41.3 % (41.0-53.0); Hemoglobin 13.6 g/dL (13.5-17.5); Lymphocytes # (auto) 0.5 10 ^3/uL (0.4-5.4); Mean Corpuscular Hemoglobin 32.6 pg (28.0-32.0); Mean Corpuscular Hgb Conc. 32.9 g/dL (32.0-36.0); Monocytes # (auto) 0.6 10 ^3/uL (0-1.3); Monocytes % (auto) 4.5 % (0.0-12.0); Neutrophils # (auto) 12.1 10 ^3/uL (1.6-8.6); Neutrophils % (auto) 90.8 % (37.0-80.0); Platelet Count (auto) 225 10^3/uL (140-450); Red Blood Cells 4.17 10^6/uL (4.5-5.90); Red Cell Distribution Width 14.2 % (11.8-14.3); White Blood Cell 13.3 10^3/uL (4.4-10.8)
[2024-12-20 10:55] LABS: Albumin 3.6 g/dL (3.2-4.8); Alkaline Phosphatase 114 U/L (46-116); BUN/Creatinine Ratio 34.1 (10.0-20.0); Bilirubin, Total 0.6 mg/dL (0.2-1.0); Calcium 8.7 mg/dL (8.7-10.4); Potassium 3.9 mmol/L (3.5-5.1); Sodium 140 mmol/L (136-145); Total Protein 5.9 g/dL (5.7-8.2)
[2024-12-20 10:56] LABS: Alanine Aminotransferase 67 U/L (7-40); Anion Gap 3.99999 (5-15); Aspartate Aminotransferase 50 U/L (13-40); Blood Urea Nitrogen 28 mg/dL (9-23); Chloride 96 mmol/L (98-107); Glucose 184 mg/dL (74-106)
[2024-12-20 10:58] LABS: Carbon Dioxide > 40 mmol/L (20-31)
--- NOTE | 2024-12-20 16:26 | DVHPNRES ---
Progress Note Date Seen: Dec 20, 2024 Resident Creating Document: ARTHUR AMEZQUITA RESIDENT Has the PT tested + for MRSA If YES, has PT been informed?: No Medical Necessity Reason Pt with a Central, PICC or Fol: Yes The following are medically ne: PICC Line Medical Necessity Reason Patient seen and examined this morning. He has no major health concerned but was worried about his belongings he left at some facility that he does not remember the name of some facility. This afternoon, patient left the hospital trying to locate the unknown facility to retrieve his belongs. He was found trying to crossing the road at the intercession. Vitals today showed BP: 89/30-141/102, Pulse: 95-64; RR: 16-19. Upon return to the hospital, his spo2 was at 80%.Patient put back on oxygen at 3L. Subjective Review of Systems Constitutional: Denies fever no chills no feeling of malaise HEENT: Denies headache, ear pain, ear discharges, conjunctivitis, nasal discharge throat pain Cardiovascular: Denies chest pain, palpitation, orthopnea, PND, or pedal edema Respiratory: At baseline 2-3 L oxygen, weak cough,and no sputum production GI: Denies abdominal pain, nausea, vomiting, diarrhea, hematemesis, hematochezia, : Denies frequency, urgency, hematuria, Endocrine: Denies unintentional weight gain or weight loss, feeling of hot flashes, Prediabetes Miguel: Denies easy bruising, bleeding disorders, epistaxis Musculoskeletal: Denies joint pains, muscle aches Psych: No evidence of depression, ronna, suicidal ideation Objective vital signs Vital Sign Date Time Temp Pulse Resp B/P (MAP) Pulse Ox O2 Delivery O2 Flow Rate FiO2 12/20/24 12:38 97.7 67 19 90/34 (52) 96 97.7 12/20/24 08:00 Nasal Cannula* 3 32 Total Intake and Output 12/19/24 12/19/24 12/20/24 15:00 23:00 07:00 Intake Total 500 ml Output Total 350 ml 800 ml 650 ml Balance -350 ml -800 ml -150 ml medications Current Medications Medications Dose Ordered Sig/Saroj Route Start Time Stop Time Status Last Admin Dose Admin Sodium Chloride 10 ml Q8HR IV 12/10/24 22:00 12/20/24 14:25 10 ML Nitroglycerin 0.4 mg Q5MINP PRN SL 12/10/24 17:45 Sodium Chloride 10 ml QSHIFT@10,22 IV 12/12/24 22:00 12/20/24 09:59 10 ML Ipratropium Lititz 0.5 mg Q6HR NEB 12/13/24 12:00 12/20/24 11:04 0.5 MG Levalbuterol HCl 1.25 mg Q6HR NEB 12/13/24 12:00 12/20/24 11:04 1.25 MG Amiodarone HCl 200 mg Q12HR PO 12/15/24 22:00 12/20/24 10:01 200 MG Levalbuterol HCl 0.625 mg Q4HP PRN NEB 12/15/24 22:45 Ipratropium Lititz 0.5 mg Q4HPRN PRN NEB 12/15/24 22:45 Acetaminophen/ Hydrocodone Bitart 1 tab Q6HPRN PRN PO 12/15/24 22:45 12/20/24 05:28 1 TAB Hydralazine HCl 10 mg Q6HP PRN IV 12/17/24 22:45 12/18/24 03:41 10 MG Prednisone 40 mg DAILY PO 12/20/24 10:00 12/20/24 10:01 40 MG Apixaban 5 mg BID PO 12/19/24 22:00 12/20/24 10:00 5 MG Doxycycline Monohydrate 100 mg Q12HR PO 12/19/24 22:00 12/20/24 09:59 100 MG Furosemide 20 mg DAILY PO 12/20/24 10:00 12/20/24 10:00 20 MG Gabapentin 100 mg TID PO 12/19/24 22:00 12/20/24 15:02 100 MG Pantoprazole Sodium 40 mg DAILY@0600 PO 12/20/24 06:00 12/20/24 05:27 40 MG Examination General Appearance: Alert, Oriented X4, well groomed, smallish looking, muscle wasting HEENT: Atraumatic, PERRLA, EOMI, Mucous membrane moist/pink Respiratory: bilateral wheezing. Cardiovascular: Regular rate, Normal S1, Normal S2, No murmurs, no chest wall tenderness Abdominal: mildly distended, Normal bowel sounds, Soft, mild tenderness around left breast, No hepatospenomegaly, No masses Extremities: No clubbing, No cyanosis, No edema, Normal pulses, No tenderness/swelling Skin: No rashes, No breakdown, No significant lesion, hyperpigmentation below the left breast from shingles Neuro: Strength at 5/5 X4 ext, Normal tone, Sensation intact, Cranial nerves 3- 12 NL, Reflexes 2+ Psych/Mental Status: Could not be assessed. laboratory and microbiology Laboratory Tests 12/20/24 10:29 Test 12/20/24 10:29 Range/Units Serum Glucose 184 H 74-106 mg/dL Microbiology Date/Time Source Procedure Growth Status 12/12/24 02:00 Blood Blood Culture - Final NO GROWTH AFTER 5 DAYS OF INCUBATION. Complete 12/11/24 18:30 Sputum Expectorated Sputum Gram Stain - Final Complete 12/11/24 18:30 Sputum Expectorated Sputum Respiratory Culture - Final Complete 12/10/24 20:35 Nose MRSA Screen - Final Complete Problem List/Assessment/Plan Problem List/Assessment/Plan Assessment and plan NEURO: Acute metabolic encephalopathy secondary to hypercapnia/carbon dioxide narcosis S/P extubation on 2L NC CARDIOVASCULAR: Acute exacerbation of chronic systolic heart failure with mildly reduced ejection fraction Possible NSTEMI type 2 likely due to sepsis New onset paroxysmal Afib with RVR with secondary hypercoagulable state, on amiodarone drip - Initial EKG showing sinus tachycardia and right ventricular hypertrophy - Echo showed EF 45-55%, RVSP 42 mm Hg, qdry-ko-ubeopsnd TR - BNP is 581.32 - Troponin trends were 147 > 131> 123 - cardiology on board - PO Lasix 20 mg daily - Amiodarone 200 mg p.o. b.i.d. - Lovenox 70 mg SC bid PULMONARY: Acute hypoxic/hypercapnic respiratory failure Acute on chronic respiratory failure due to exacerbation of COPD Acute exacerbation of chronic COPD with superimposed pneumonia Possible gram positive/ gram negative pneumonia Sepsis due to pneumonia History of Pulmonary embolism - Chest x-ray showed Extensive scarring is seen in the bilateral mid to upper lung douglas with Superimposed pneumonia. - Medneb with levalbuterol and ipratropium q.6 hours - Prednisone PO 40 mg daily taper by 10mg beginning tomorrow. - Doxycycline PO 100mg q12h - Covid, flu and MRSA are negative - Sputum culture: No micro organism seen - Lovenox 70 mg sc bid GASTROINTESTINAL: Hyperbilirubinemia with transaminitis likely due to sepsis resolved GENITOURINARY: UDS is positive for opioids Acute kidney injury ruled out ENDOCRINE: Prediabetes, HbA1C 6.2 Euthyroid Sick syndrome - TSH is low, T3 and T4 are low METABOLIC: Moderate protein calorie malnutrition, albumin 3.1 Hyperkalemia resolved INFECTIOUS DISEASE: Sepsis due to pneumonia Lactic acidosis due to sepsis Acute exacerbation of chronic COPD with superimposed pneumonia - Blood culture showed no growth in 24 hours of incubation - Lactic acid is 2.0 DIET: Cardiac diet DVT prophylax: Lovenox GI prophylaxis: Protonix Bowel regimen: None Code status: Full code LINES/DRAINS/ACCESS: s/p extubation IV access: Peripheral line, right arm PICC line placed on 12/10/2024 Drips: None Kimble catheter: Placed on 12/10/2024, Discontinued DISPOSITION: Med/surg Plan: agricultural services director to plan for placement. Possible d/c tomorrow Patient's status discussed with patient, RN Goal of care discussed for more than 16 minutes: full code Case discussed with Dr. Albarado Plan discussed with: Patient My Orders My Orders Orders - ARTHUR AMEZQUITA Procedure Category Date Status Time * Medical Education Coordinator CONS 12/20/24 Transmitted Consult Dietary Evaluation Review Comments: 1) TF Glucerna 1.2 Bhupendra @ 70ml/hr x 24 hr (goal). Start @ 20ml/hr, increase 10ml/hr Q4H until goal rate is reached. TF at goal volume provides 100% energy & protein needs - 2016 kcal, 101 gm protein, 1352 ml free water 2) Water flush 170ml Q6H if allowed 3) TPN if NPO>7 days 4) Monitor BW, lab values and skin integrity Expected Outcomes/Goals: To meet >75% estimated needs Fu 2-3 days Date of Service: Dec 20, 2024 Billing Provider: IDALMIS ALBARADO MD Common Visit Codes: 08246-[id number] INP/OBS CARE(HIGH) Secondary Visit Codes: 73344-[id number] CARE PLAN 30 MINUTES ARTHUR AMEZQUITA Dec 20, 2024 16:26 IDALMIS LABARADO MD Dec 24, 2024 16:29
[2024-12-21] VITALS (17 sets, daily range): BP systolic 106–133; BP diastolic 70–86; PULSE 72–95; RESP 16–20; TEMP 36.4; O2SAT 93–100
[2024-12-21] MEDS: predniSONE 20 MG TAB PO SCH (09:45)
--- NOTE | 2024-12-21 10:21 | DVHDSRES ---
Discharge Summary Date of Admission Resident Creating Document: ARTHUR AMEZQUITA RESIDENT December 10, 2024 at 17:35 Date of Discharge: December 16, 2024 Admitting Diagnosis COPD Exacerbation Labs/Diagnostic Data: PATIENT: CASSI DE ANDA ACCT: [id number] UNIT: [id number] : 1965 LOC: [facility] / BED: 0270T / B AGE / SEX: 59 / M ADM STATUS: ADM IN SERVICE 0833 ORDERING PHYSICIAN: ARTHUR AMEZQUITA PROCEDURE(s): CXR1 - CHEST XRAY 1 VIEW REASON: PNEUMONIA ORDER NUMBER(s): [id number], ACCESSION NUMBER(s): [id number] EXAM: XY CHEST XRAY 1 VIEW Indication: Pain. PNEUMONIA Technique: Single frontal view of the chest was obtained Comparison: XY CHEST PORTABLE on DOS: 12/18/24, XY CHEST PORTABLE on DOS: 12/17/24, XY CHEST PORTABLE on DOS: 12/16/24, XY CHEST PORTABLE on DOS: 12/15/24, XY CHEST PORTABLE on DOS: 12/14/24 FINDINGS: Lines and Tubes: Right PICC tip projects over superior vena cava. Lungs: Multifocal bilateral airspace opacities Pleura: No effusion. No pneumothorax. Cardiomediastinal contours: Unremarkable Bones: No acute osseous abnormality. IMPRESSION: No significant change compared to prior exam. ATED BY: JOÃO KHOURY MD DICTATED DATE/TIME: 12/19/24 1108 PATIENT: CASSI DE ANDA ACCT: [id number] UNIT: [id number] : 1965 LOC: [facility] ROOM / BED: [address] [place] [address] / A AGE / SEX: 59 / M ADM STATUS: ADM IN SERVICE 0400 ORDERING PHYSICIAN: MARIA TERESA COLLINS PROCEDURE(s): CXRP - CHEST PORTABLE REASON: COPD EXACERBATION ORDER NUMBER(s): [id number], ACCESSION NUMBER(s): [id number] CHEST RADIOGRAPH Indication: COPD EXACERBATION Technique: Single frontal view of the chest was obtained COMPARISON: XY CHEST PORTABLE on DOS: 12/17/24, XY CHEST PORTABLE on DOS: 12/16/24, XY CHEST PORTABLE on DOS: 12/15/24, XY CHEST PORTABLE on DOS: 12/14/24, XY CHEST PORTABLE on DOS: 12/13/24 FINDINGS: Lines and Tubes: Right peripherally inserted central catheter unchanged. Lungs: Grossly stable appearing multifocal bilateral pulmonary opacities. No evidence of focal consolidation. Pleura: No effusion. No pneumothorax. Cardiomediastinal contours: Unremarkable Bones: Unremarkable IMPRESSION: 1. Stable appearing multifocal bilateral pulmonary opacities. 2. Right PICC. ATED BY: EFRAIN SOSA MD DICTATED DATE/TIME: 12/18/24 0326 PATIENT: CASSI DE ANDA ACCT: [id number] UNIT: [id number] : 1965 LOC: [facility] ROOM / BED: [address] [place] [address] AGE / SEX: 59 / M ADM STATUS: ADM IN SERVICE 0400 ORDERING PHYSICIAN: PRATIMA WOOTEN PROCEDURE(s): CXRP - CHEST PORTABLE REASON: Aspiration pneumonia ORDER NUMBER(s): [id number], ACCESSION NUMBER(s): [id number] CHEST RADIOGRAPH Indication: Aspiration pneumonia Technique: Single frontal view of the chest was obtained Comparison: XY CHEST PORTABLE on DOS: 12/16/24, XY CHEST PORTABLE on DOS: 12/15/24, XY CHEST PORTABLE on DOS: 12/14/24 IMPRESSION: Heart appears stable in size. Patchy opacities appear similar. No sizable effusion or pneumothorax. Right PICC line tip in the region of the superior vena cava. No significant interval change. ATED BY: ANNA IRVIN MD DICTATED DATE/TIME: 12/17/24 0600 PATIENT: CASSI DE ANDA ACCT: [id number] UNIT: [id number] : 1965 LOC: ICU [facility] ROOM / BED: [address] [place] [address] AGE / SEX: 59 / M ADM STATUS: ADM IN SERVICE 0900 ORDERING PHYSICIAN: PRATIMA WOOTEN PROCEDURE(s): CX2CT - CHEST WITHOUT CONTRAST REASON: PNEUMONIA ORDER NUMBER(s): [id number], ACCESSION NUMBER(s): [id number] Procedure: CT CHEST WITHOUT CONTRAST Reason for study/Clinical History: PNEUMONIA Comparison Study: None TECHNIQUE: Multidetector CT of the chest was performed from the lung apices to the upper abdomen without the use of intravenous contract. Axial, coronal and sagittal multiplanar reformats were performed. Radiation Dose Information: CT Dose: CTDI volume is 7.43 mGy. Dose-length product is 294.38 mGy*cm The dose indicators for CT are the volume Computed Tomography (CT) Dose Index (CTDIvol) and the Dose Length Product (DLP), and are measured in units of mGy and mGy-cm, respectively. These indicators are not patient dose, but values generated from the CT scanner acquisition factors. The report includes radiation exposure data for exposures received during this examination. FINDINGS: Lower neck: Unremarkable. Lungs: Severe centrilobular emphysema. Severe apical scarring. Heart/Vascular Structures: Cardiomegaly. Vascular calcifications of the aorta. Lymph Nodes: No adenopathy Pleura: No pleural effusion or significant pneumothorax. Musculoskeletal: No acute osseous abnormality. Soft tissues: Normal. Upper abdomen: Limited portions of the upper abdomen are unremarkable. IMPRESSION: No focal airspace consolidation. Severe emphysema and scarring. ATED BY: ELLIS STRAUSS MD DICTATED DATE/TIME: 12/16/24 1020 PATIENT: CASSI DE ANDA ACCT: [id number] UNIT: [id number] : 1965 LOC: [facility] ROOM / BED: [address] [place] [address] AGE / SEX: 59 / M ADM STATUS: ADM IN SERVICE 0400 ORDERING PHYSICIAN: PRATIMA WOOTEN RESIDENT PROCEDURE(s): CXRP - CHEST PORTABLE REASON: s/p extubation ORDER NUMBER(s): [id number], ACCESSION NUMBER(s): [id number] EXAM: XR Chest, 1 View CLINICAL INDICATION: s/p extubation TECHNIQUE: Frontal view of the chest. COMPARISON: XY CHEST PORTABLE on DOS: 12/15/24, XY CHEST PORTABLE on DOS: 12/14/24, XY CHEST PORTABLE on DOS: 12/13/24, XY CHEST PORTABLE on DOS: 12/11/24, XY CHEST XRAY 1 VIEW on DOS: 12/11/24 FINDINGS: LUNGS AND PLEURAL SPACES: Right basilar atelectasis or pneumonia. Hyperlucent lungs. Flattening of the diaphragm. No pneumothorax. HEART: Unremarkable. No cardiomegaly. MEDIASTINUM: Unremarkable. Normal mediastinal contour. BONES/JOINTS: Unremarkable. No acute fracture. TUBES, LINES AND DEVICES: Right peripherally inserted central catheter (PICC) tip in the superior vena cava. OTHER FINDINGS: . . . IMPRESSION: 1. Right basilar atelectasis or pneumonia. 2. Suggestion of COPD. ATED BY: ASHLEIGH FERGUSON MD DICTATED DATE/TIME: 12/16/2434 PATIENT: CASSI DE ANDA ACCT: [id number] UNIT: [id number] : 1965 LOC: [facility] ROOM / BED: [address] [place] [address] AGE / SEX: 59 / M ADM STATUS: ADM IN SERVICE 040 ORDERING PHYSICIAN: PRATIMA WOOTEN RESIDENT PROCEDURE(s): CXRP - CHEST PORTABLE REASON: Mechanical ventilation ORDER NUMBER(s): [id number], ACCESSION NUMBER(s): [id number] EXAM: XR Chest, 1 View CLINICAL INDICATION: Mechanical ventilation TECHNIQUE: Frontal view of the chest. COMPARISON: XY CHEST PORTABLE on DOS: 12/14/24, XY CHEST PORTABLE on DOS: 12/13/24, XY CHEST PORTABLE on DOS: 12/11/24, XY CHEST XRAY 1 VIEW on DOS: 12/11/24, XY CHEST PORTABLE on DOS: 12/11/24 FINDINGS: LUNGS AND PLEURAL SPACES: Hyperlucent lungs. Flattening of the diaphragm. No consolidation. No pneumothorax. HEART: Unremarkable. No cardiomegaly. MEDIASTINUM: Unremarkable. Normal mediastinal contour. BONES/JOINTS: Unremarkable. No acute fracture. TUBES, LINES AND DEVICES: Stable tubes and lines. OTHER FINDINGS: . . . IMPRESSION: 1. Suggestion of COPD. 2. No significant change from the prior exam. ATED BY: ASHLEIGH FERGUSON MD DICTATED DATE/TIME: 12/15/24 0518 PATIENT: CASSI DE ANDA ACCT: [id number] UNIT: [id number] : 1965 LOC: [facility] ROOM / BED: [address] [place] [address] AGE / SEX: 59 / M ADM STATUS: ADM IN SERVICE 0400 ORDERING PHYSICIAN: PRATIMA WOOTEN PROCEDURE(s): CXRP - CHEST PORTABLE REASON: INTUBATED, ARF ORDER NUMBER(s): [id number], ACCESSION NUMBER(s): [id number] CHEST RADIOGRAPH Indication: INTUBATED, ARF Technique: Single frontal view of the chest was obtained Comparison: XY CHEST PORTABLE on DOS: 12/13/24 FINDINGS: Lines and Tubes: The endotracheal tube terminates 5.3 cm above the rosalva. A right PICC terminates in the superior vena cava. Enteric tube terminates in the stomach. Lungs: Hazy bilateral opacities. Pleura: No effusion. No pneumothorax. Cardiomediastinal contours: Unremarkable Bones: No acute osseous abnormality. IMPRESSION: 1. Endotracheal tube terminates 5.3 cm above rosalva. 2. Hazy bilateral opacities which may reflect pneumonia. ATED BY: MARIBETH LOZA MD DICTATED DATE/TIME: 12/14/24 05 PATIENT: CASSI DE ANDA ACCT: [id number] UNIT: [id number] : 1965 LOC: [facility] ROOM / BED: [address] [place] [address] AGE / SEX: 59 / M ADM STATUS: ADM IN SERVICE 0400 ORDERING PHYSICIAN: SURINDER MENENDEZ MD PROCEDURE(s): CXRP - CHEST PORTABLE REASON: RESPIRATORY FAILURE ORDER NUMBER(s): [id number], ACCESSION NUMBER(s): [id number] INDICATION: RESPIRATORY FAILURE TECHNIQUE: Single frontal view of the chest was obtained COMPARISON: XY CHEST PORTABLE on DOS: 12/11/24, XY CHEST XRAY 1 VIEW on DOS: 12/11/24, XY CHEST PORTABLE on DOS: 12/11/24, XY CHEST PORTABLE on DOS: 12/10/24, XY CHEST PORTABLE on DOS: 12/11/24 FINDINGS: Lines and Tubes: Endotracheal tube 5-6 cm above the rosalva. Endotracheal tube just below the left diaphragm recommend advancement 4-5 inches. Lungs: No focal consolidation. Pleura: No effusion. No pneumothorax. Cardiomediastinal contours: Unremarkable Bones: No acute osseous abnormality. IMPRESSION: 1. Endotracheal tube 5-6 cm above the rosalva. 2. Enteric tube just below the left diaphragm recommend advancement 4-5 inches. 3. No change in the pulmonary findings when compared with the study done at 8:17 p.m. On 12/11/2024 ATED BY: SHAYY AVENDANO MD DICTATED DATE/TIME: 12/13/24 0419 PATIENT: CASSI DE ANDA ACCT: [id number] UNIT: [id number] : 1965 LOC: CATH ICU ROOM / BED: Cath ICU / AGE / SEX: 59 / M ADM STATUS: ADM IN SERVICE 55 ORDERING PHYSICIAN: LIZA DALEY MD PROCEDURE(s): CXRP - CHEST PORTABLE REASON: ETT PLACEMENT AND OGT PLACEMENT ORDER NUMBER(s): [id number], ACCESSION NUMBER(s): [id number] CHEST RADIOGRAPH Indication: ETT PLACEMENT AND OGT PLACEMENT Technique: Single frontal view of the chest was obtained Comparison: XY CHEST XRAY 1 VIEW on DOS: 12/11/24, XY CHEST PORTABLE on DOS: 12/11/24, XY CHEST PORTABLE on DOS: 12/10/24 FINDINGS: Lines and Tubes: Endotracheal tube 5-6 cm above the rosalva. Endotracheal tube just below the left diaphragm recommend advancement 4-5 inches. Lungs: No focal consolidation. Pleura: No effusion. No pneumothorax. Cardiomediastinal contours: Unremarkable Bones: No acute osseous abnormality. IMPRESSION: 1. Endotracheal tube 5-6 cm above the rosalva. 2. Enteric tube just below the left diaphragm recommend advancement 4-5 inches. 3. No change in the pulmonary findings when compared with the study done at 8:17 p.m. On 12/11/2024 HS:Y ATED BY: SHERRY PRIETO Jr., DO DICTATED DATE/TIME: 12/11/242128 PATIENT: CASSI DE ANDA ACCT: [id number] UNIT: [id number] : 1965 LOC: CATH ICU ROOM / BED: [facility] ICU / 4 AGE / SEX: 59 / M ADM STATUS: ADM IN SERVICE 09 ORDERING PHYSICIAN: LIZA DALEY MD PROCEDURE(s): CXR1 - CHEST XRAY 1 VIEW REASON: ETT PLACEMENT ORDER NUMBER(s): [id number], ACCESSION NUMBER(s): [id number] CHEST RADIOGRAPH Indication: ETT PLACEMENT Technique: Single frontal view of the chest was obtained Comparison: XY CHEST PORTABLE on DOS: 12/11/24, XY CHEST PORTABLE on DOS: 12/10/24 FINDINGS: Lines and Tubes: Endotracheal tube is between 5 and 6 cm above the rosalva. AED pads over the left chest. Lungs: Bilateral perihilar airspace disease noted worse on the left than the right. Pleura: No effusion. No pneumothorax. Cardiomediastinal contours: Unremarkable Bones: No acute osseous abnormality. IMPRESSION: 1. Endotracheal tube 5-6 cm above the rosalva. 2. Bilateral perihilar infiltrates with airspace disease in the mid lung douglas left worse than right. HS:Y ATED BY: SHERRY PRIETO Jr., DO DICTATED DATE/TIME: 12/11/242042 PATIENT: CASSI DE ANDA ACCT: [id number] UNIT: [id number] : 1965 LOC: CATH ICU ROOM / BED: [facility] ICU / 4 AGE / SEX: 59 / M ADM STATUS: ADM IN SERVICE 1715 ORDERING PHYSICIAN: BRANDIN CAMARGO MD PROCEDURE(s): CXRP - CHEST PORTABLE REASON: INTUBATED ORDER NUMBER(s): [id number], ACCESSION NUMBER(s): [id number] CHEST RADIOGRAPH Indication: INTUBATED Technique: Single frontal view of the chest was obtained Comparison: XY CHEST PORTABLE on DOS: 12/10/24 FINDINGS: Lines and Tubes: Endotracheal tube terminates about 7.6 cm above the rosalva Lungs: Hyperinflation of the lungs with coarse interstitial marking. Possible calcified granuloma of the right mid lung zone. The lung bases outside the field of view. No pneumothorax. Cardiomediastinal contours: Unremarkable Bones: No acute osseous abnormality. IMPRESSION: Endotracheal tube terminates about 7.6 cm above the rosalva. Fibrotic/ emphysematous changes of the visualized lungs with superimposed infectious process not excluded. ATED BY: BRITANY VARNER DO DICTATED DATE/TIME: 12/11/24 7137 PATIENT: CASSI DE ANDA ACCT: [id number] UNIT: [id number] : 1965 LOC: ER ROOM / BED: / AGE / SEX: 59 / M ADM STATUS: REG ER SERVICE 1231 ORDERING PHYSICIAN: GEOFF GODWIN MD PROCEDURE(s): CXRP - CHEST PORTABLE REASON: sob ORDER NUMBER(s): [id number], ACCESSION NUMBER(s): [id number] CHEST RADIOGRAPH Indication: sob Technique: Single frontal view of the chest was obtained COMPARISON: None FINDINGS: Lines and Tubes: None Lungs: Extensive scarring is seen in the bilateral mid to upper lung douglas. Superimposed pneumonia is difficult to exclude Pleura: No effusion. No pneumothorax. Cardiomediastinal contours: Unremarkable Bones: Unremarkable IMPRESSION: 1. Extensive scarring is seen in the bilateral mid to upper lung douglas. Superimposed pneumonia is difficult to exclude ATED BY: KIMBERLEE DAVILA MD DICTATED DATE/TIME: 12/10/24 1311 Laboratory Results Test 12/20/24 10:29 12/16/24 09:40 12/15/24 14:00 12/15/24 10:37 White Blood Count 13.3 10^3/uL (4.4-10.8) Red Blood Count 4.17 10^6/uL (4.5-5.90) Hemoglobin 13.6 g/dL (13.5-17.5) Hematocrit 41.3 % (41.0-53.0) Mean Corpuscular Volume 99.0 fL (80.0-100.0) Mean Corpuscular Hemoglobin 32.6 pg (28.0-32.0) Mean Corpuscular Hemoglobin Concent 32.9 g/dL (32.0-36.0) Red Cell Distribution Width 14.2 % (11.8-14.3) Platelet Count 225 10^3/uL (140-450) Mean Platelet Volume 7.4 fL (6.9-10.8) Neutrophils (%) (Auto) 90.8 % (37.0-80.0) Lymphocytes (%) (Auto) 4.0 % (10.0-50.0) Monocytes (%) (Auto) 4.5 % (0.0-12.0) Eosinophils (%) (Auto) 0.2 % (0.0-7.0) Basophils (%) (Auto) 0.5 % (0.0-2.0) Neutrophils # (Auto) 12.1 10 ^3/uL (1.6-8.6) Lymphocytes # (Auto) 0.5 10 ^3/uL (0.4-5.4) Monocytes # (Auto) 0.6 10 ^3/uL (0-1.3) Eosinophils # (Auto) 0 10 ^3/uL (0-0.8) Basophils # (Auto) 0.1 10 ^3/uL (0-0.2) Nucleated Red Blood Cells 0.0 % Sodium Level 140 mmol/L (136-145) Potassium Level 3.9 mmol/L (3.5-5.1) Chloride Level 96 mmol/L (98-107) Carbon Dioxide Level > 40 mmol/L (20-31) Anion Gap 3.86787 (5-15) Blood Urea Nitrogen 28 mg/dL (9-23) Creatinine 0.82 mg/dL (0.700-1.30) Glomerular Filtration Rate Calc 101 mL/min (>90) BUN/Creatinine Ratio 34.1 (10.0-20.0) Serum Glucose 184 mg/dL (74-106) Lactic Acid Level 2.0 mmol/L (0.4-2.0) Calcium Level 8.7 mg/dL (8.7-10.4) Total Bilirubin 0.6 mg/dL (0.2-1.0) Aspartate Amino Transferase (AST) 50 U/L (13-40) Alanine Aminotransferase (ALT) 67 U/L (7-40) Alkaline Phosphatase 114 U/L (46-116) Total Protein 5.9 g/dL (5.7-8.2) Albumin 3.6 g/dL (3.2-4.8) Blood Gas Specimen Type Arterial Blood Gas Sample Site Left radial Blood Gas Patient Temperature 37.0 Arterial Blood Date Drawn [id number] Arterial Blood pH 7.312 (7.350-7.450) Arterial Blood Partial Pressure CO2 67.6 mmHg (35.0-48.0) Arterial Blood Partial Pressure O2 57.6 mmHg (83.0-108.0) Arterial Blood HCO3 33.4 mmol/L (21.0-28.0) Arterial Blood Oxygen Saturation 84.7 % (94.0-98.0) Arterial Blood Base Excess 4.9 mmol/L (-2.0-3.0) Arterial Blood Oxyhemoglobin 83.7 % (94.0-98.0) Arterial Blood Carboxyhemoglobin 1.0 % (0.5-1.5) Arterial Blood Methemoglobin 0.2 % (0.0-1.5) Kem Test Yes Blood Gas Total Hemoglobin 14.40 g/dL (13.5-17.5) Blood Gas Liter Flow 5.00 Blood Gas Modality Oxymizer FiO2 % 46.0 Blood Gas Critical Value Read Back yes Blood Gas Notified Whom mallorie Wooten md Blood Gas Notified Time [id number] Blood Gas Notified By Blood Gas Pressure Support 8 Blood Gas PEEP or CPAP 5.0 Magnesium Level 2.0 mg/dL (1.6-2.6) Test 12/15/24 06:07 12/15/24 03:10 12/14/24 15:46 12/13/24 10:40 Blood Gas Set Respiration Rate 16.0 Blood Gas Tidal Volume 500.0 Vancomycin Level Trough 13.4 ug/mL (5-10) SARS-CoV-2 Antigen (Rapid) Negative (NEGATIVE) Free Thyroxine (T4) Calculated 0.85 ng/dL (0.89-1.76) Free Triiodothyronine (T3) pg/mL 1.58 pg/mL (2.3-4.2) Test 12/12/24 11:31 12/11/24 23:58 12/11/24 23:57 12/11/24 17:59 Influenza Type A Antigen Negative (Negative) Influenza Type B Antigen Negative (Negative) B-Type Natriuretic Peptide 581.32 pg/mL (0-100) POC Glucose 178 mg/dl (70-106) Prothrombin Time 10.9 sec (9.3-11.8) Prothrombin Time INR 1.03 (0.9-1.15) Activated Partial Thromboplast Time 23.9 SEC (24.5-34.5) Test 12/11/24 15:08 12/11/24 14:05 12/11/24 10:07 12/10/24 13:10 Venous Blood pH 7.185 (7.320-7.430) Venous Blood pCO2 at Patient Temp 152.3 mmHg (38.0-54.0) Venous Blood pO2 at Patient Temp < 36.5 mmHg (23.0-48.0) Venous Blood HCO3 56.2 mmol/L (22.0-29.0) Venous Blood Base Excess 19.9 mmol/L (-2.0-3.0) Urine Opiates Screen Pos (NEGATIVE) Urine Fentanyl Screen Neg (NEGATIVE) Urine Barbiturates Screen Neg (NEGATIVE) Urine Phencyclidine Screen Neg (NEGATIVE) Urine Amphetamines Screen Neg (NEGATIVE) Urine Benzodiazepines Screen Neg (NEGATIVE) Urine Cocaine Screen Neg (NEGATIVE) Urine Cannabinoids Screen Neg (NEGATIVE) Hemoglobin A1c 6.2 % A1C (<5.7) Troponin I High Sensitivity 123 ng/L (</=54) Triglycerides Level 51 mg/dL (< 150) Cholesterol Level 133 mg/dL (< 200) LDL Cholesterol 40 mg/dL (< 100) HDL Cholesterol 73 mg/dL (40-59) Thyroid Stimulating Hormone (TSH) 0.41 uIU/mL (0.55-4.78) Urine Color Colorless (Yellow) Urine Clarity Clear (Clear) Urine pH 5.5 (5.0-9.0) Urine Specific [place] 1.008 (1.001-1.035) Urine Protein Negative (Negative) Urine Ketones Negative (Negative) Urine Blood Negative /uL (Negative) Urine Nitrite Negative (Negative) Urine Bilirubin Negative (Negative) Urine Urobilinogen Normal mg/dL (Negative) Urine Leukocyte Esterase Negative /uL (Negative) Urine RBC <1 /hpf (0 - 3) Urine Microscopic WBC < 1 /HPF (0-3) Urine Squamous Epithelial Cells None seen /hpf (<5) Urine Bacteria Few /hpf (None Seen) Urine Glucose Normal mg/dL (Normal) Test 12/10/24 13:04 Differential Total Cells Counted 100.0 (100) Neutrophils % (Manual) 66 (37.0-80.0) Band Neutrophils % (Manual) 1 Lymphocytes % (Manual) 17 (10.0-50.0) Monocytes % (Manual) 15 (0-12) Eosinophils % (Manual) 1 (0-7) Basophils % (Manual) 0 (0.0-2.0) Metamyelocytes % (manual) 0 Myelocytes % (Manual) 0 Promyelocytes % (Manual) 0 Blast Cells % (Manual) 0 Reactive Lymphocytes 0 Platelet Estimate Decreased Stomatocytes Few D-Dimer, Quantitative < 0.19 mg/L FEU (0.0-0.49) Other Laboratory Tests 12/20/24 10:29 Brief Hx & Hospital Course: History of presenting illness 59 y/o M, BIBA with multiple medical history including COPD, CHF, and PE presented to the ED on 12/10/2024 with a chief complaint of chest pain. EMS reports, patient is coming from home where he complained of substernal chest pain with associated shortness of breath x1day. Patient stated that he was discharged from [facility] last night (12/09/24) and since, symptoms have arose. On route to the ED, patient was given Nitro and Aspirin; which improvement of symptoms. Patient comments, that he is currently on Eliquis no other medications reported at this time. Patient denies palpitations, fever, cough, chills, headache, or weakness. No other symptoms or modifying factors present at this time. PAST MEDICAL HISTORY: HTN, Thyroid, COPD, CHF, PE Surgical History: Unknown Family History: noncontributory Social History: lives at home, history of drug abuse, Etoh use, and smoker Brief Hospital Course Patient is a 59-year old gentleman with multiple medical conditions including COPD, CHF and PE who presented with shortness of breath and chest pain. Whilst in the ED, patient was noted to be in respiratory distress. Chest x-ray revealed findings consistent with pneumonia; So, patient was admitted. Sputum, urine and blood samples were taken and IV antibiotics initiated. Soon after, patient was found obtunded and ABG revealed hypercapnia with a CO2 of 150. and he was subsequently intubated and placed on mechanical ventilation on the following parameters FiO2 100%, tidal volume 500, PEEP 5. NG tube and PICC line on right arm placed on 12/10/2024 for feeding and medication respectively. He received levophed 4, fentanyl 150 and versed 8 whilst on mechanical ventilation. He was managed for sepsis due to pnuemonia, acute hypoxic and hypercapnic respiratory failure secondary to acute COPD exacerbation, NSTEMI suspected type 2, hypertension and Acute on chronic congestive heart failure exacerbation unspecified. Patient continued to received nutrition and treatment whilst intubated and sedated. Cardiology was also initially consulted for the mildly elevated troponion and chesst pain. Howver, multiple 12 lead electrocardiograms revealed a sinus tachycardia rhythm up to 109 bpm and suggestive of right ventricular hypertrophy. Serial troponin levels peaked at 147 ng/L. Echo revealed LVEF 45-50%. D-septum was in favor of component of PAH. RVSP 60 mmHg, No further workup was recommended. On 12/14/2024, Cardiology was reconsulted when patient developed new onset a-fib with RVR. Patient was started on antiarrhythmic therapy (amiodarone drip) and therapeutic Lovenox. As the day progresses, FiO2 30%, tidal volume 500, PEEP 5, RR 24. He underwent CPAP trial and was successfully extubated on 12/15/2024. Patient also passed the swallow evaluation which allowed him to be able to start oral feeds. He was started on clear liquid and gradually advanced to regular diet. Patient was then transferred to telemetry on 4L oxygen via oxymizer. The oxymizer was later changed to nasal canula ON 2-3L of oxygen. On 12/21/2023, patient's IV medication were changed to oral medications. He tolerated them well without any complaints. He has been able to walk to the bathroom with the need for oxygen. Overall, patient is back to his baseline and ready for discharge back home. Patient mentioned that when he was discharge from [facility], he was sent to facility but he did not stay there up to 24 hours before [facility] He said he left his portable oxygen concentrator and charge at that facility. Patient could not remember the name of the facility. We called [facility] and they said patient was sent to [facility] senior [facility] and the contact name is Zulay on [phone]. I called and left a message and also gave the number to the aids social worker on this case. Examination General Appearance: Alert, Oriented X3, Cooperative, No acute distress HEENT: Atraumatic, PERRLA, EOMI, Mucous membrane moist/pink Respiratory: Clear to auscultation, Normal air movement Cardiovascular: Regular rate, Normal S1, Normal S2, No murmurs, no chest wall tenderness Abdominal: NO distention, no tenderness, bowel sounds present, no scars noted Extremities: No clubbing, No cyanosis, No edema, Normal pulses, No tenderness/swelling Skin: No rashes, No breakdown, No significant lesion Neuro: Normal gait, Normal speech, Strength at 5/5 X4 ext, Normal tone, Sensation intact, Cranial nerves 3-12 NL, Reflexes 2+ Psych/Mental Status: Mental status NL, Mood NL Diagnoses Acute metabolic encephalopathy secondary to hypercapnia/carbon dioxide narcosis Acute exacerbation of chronic systolic heart failure with mildly reduced ejection fraction Possible NSTEMI type 2 likely due to sepsis New onset paroxysmal Afib with RVR with secondary hypercoagulable state Acute hypoxic/hypercapnic respiratory failure Acute on chronic respiratory failure due to exacerbation of COPD Acute exacerbation of chronic COPD with superimposed pneumonia Possible gram positive/ gram negative pneumonia Sepsis due to pneumonia History of Pulmonary embolism Hyperbilirubinemia with transaminitis likely due to sepsis UDS is positive Acute kidney injury ruled out Prediabetes, HbA1C 6.2 Euthyroid Sick syndrome Moderate protein calorie malnutrition, albumin 3.1 Hyperkalemia Sepsis due to pneumonia lactic acidosis due to sepsis Discharge plan Taper down the steroids by 10 mg every 3 days Follow up at the discharge clinic in 7-14 days Follow up with table keeper with a repeat CT scan in 6 months Continue the home oxygen Discharge plan discussed with Dr. Camargo Consults/Reason for consult pulmonology: for the management of pneumonia and ventilation in an end stage copd patient. Operations or Procedures PATIENT: CASSI DE ANDA ACCT: [id number] UNIT: [id number] : 1965 LOC: [facility] ROOM / BED: [address] [place] [address] AGE / SEX: 59 / M ADM STATUS: ADM IN SERVICE 1043 ORDERING PHYSICIAN: SURINDER MENENDEZ MD PROCEDURE(s): USGUIVASAC - US Guided Vascular Access REASON: PICC Insertion ORDER NUMBER(s): [id number], ACCESSION NUMBER(s): [id number] Exam: US US GUIDED VASCULAR ACCESS Date: 12/12/2024 09:36 AM Clinical History: PICC Insertion Comparison: None Findings: Targeted sonographic evaluation of the basilic vein was obtained utilizing grayscale and color Doppler imaging. IMPRESSION: Sonographic assistance for central line placement. Please refer to procedural report for detailed findings. ATED BY: SHAYY AVENDANO MD DICTATED DATE/TIME: 12/13/24 0410 Condition at Discharge: Good Final Diagnosis/Problems List Acute metabolic encephalopathy secondary to hypercapnia/carbon dioxide narcosis Acute exacerbation of chronic systolic heart failure with mildly reduced ejection fraction Possible NSTEMI type 2 likely due to sepsis New onset paroxysmal Afib with RVR with secondary hypercoagulable state Acute hypoxic/hypercapnic respiratory failure Acute on chronic respiratory failure due to exacerbation of COPD Acute exacerbation of chronic COPD with superimposed pneumonia Possible gram positive/ gram negative pneumonia Sepsis due to pneumonia History of Pulmonary embolism Hyperbilirubinemia with transaminitis likely due to sepsis UDS is positive Acute kidney injury ruled out Prediabetes, HbA1C 6.2 Euthyroid Sick syndrome Moderate protein calorie malnutrition, albumin 3.1 Hyperkalemia Sepsis due to pneumonia lactic acidosis due to sepsis Discharge Disposition: Home Discharge Statement: "Patient was advised to return to the ER or call 911 if any headaches, dizziness, shortness of breath, chest pain, abdominal pain, bleeding, fevers, or worsening of medical condition. Patient was counseled about treatment plan, medications, possible side effects, patientverbalized understanding. All questions were answered to the best of my ability. This discharge took greater then 30 minutes in planning, reviewing documentation, counseling the patient, and discussing with other team members." ASSESSMENT ASSESSMENT Assessment ARTHUR AMEZQUITA RESIDENT Dec 21, 2024 10:21
[2024-12-21] MEDS ORDERED: PRED10TA PO (17:11)
[2024-12-21] MEDS ORDERED: DOX100T PO (17:11)
[2024-12-21] MEDS ORDERED: AMIO200T13 PO (17:11)
[2024-12-21] MEDS ORDERED: GAB100C PO (17:11)
[2024-12-21] MEDS ORDERED: APIX5TAB PO (17:11)
[2024-12-21] MEDS ORDERED: FURO20TA4 PO (17:11)
[2024-12-22] VITALS (14 sets, daily range): BP systolic 87–113; BP diastolic 42–71; PULSE 70–104; RESP 16–20; TEMP 97.4–97.8; O2SAT 93–100
--- NOTE | 2024-12-22 18:41 | DVHPNRES ---
Progress Note Date Seen: Dec 22, 2024 Resident Creating Document: ARTHUR AMEZQUITA RESIDENT Has the PT tested + for MRSA If YES, has PT been informed?: No Medical Necessity Reason Pt with a Central, PICC or Fol: Yes The following are medically ne: PICC Line Medical Necessity Reason Patient is 59-year-old male with a managed for COPD exacerbation, acute respiratory failure, as aspiration pneumonia acute on chronic CHF, PAH, new onset Afib, withdrawn was stable and was discharged yesterday. However patient refused to go home. Stating that wherever facility he was brought from which [facility] he left his belongings there. Until he gets his belongings from there he is not going to go home. I did call the facility myself and left a message. animal services officer was able to get in touch with the facility and they brought his belongings here. Patient still refused to go saying that he is still missing a black backpack which contains his wallet and certificate. animal services officer preventatives have work him and he said he is ready to go home today. Subjective Review of Systems Constitutional: Denies fever no chills no feeling of malaise HEENT: Denies headache, ear pain, ear discharges, conjunctivitis, nasal discharge throat pain Cardiovascular: Denies chest pain, palpitation, orthopnea, PND, or pedal edema Respiratory: Denies shortness of breath, cough cough, sputum production, hemoptysis, on 2-3L of oxygen GI: Denies abdominal pain, nausea, vomiting, diarrhea, hematemesis, hematochezia, : Denies frequency, urgency, hematuria, Endocrine: Denies unintentional weight gain or weight loss, feeling of hot flashes, Miguel: Denies easy bruising, bleeding disorders, epistaxis Musculoskeletal: Denies joint pains, muscle aches Psych: No evidence of depression, ronna, suicidal ideation Objective vital signs Vital Sign Date Time Temp Pulse Resp B/P (MAP) Pulse Ox O2 Delivery O2 Flow Rate FiO2 12/22/24 16:26 97.4 104 20 104/69 (81) 96 97.4 12/22/24 08:30 Room Air* 0 21 Total Intake and Output 12/21/24 12/21/24 12/22/24 15:00 23:00 07:00 Intake Total 120 ml 800 ml Output Total 275 ml Balance 120 ml 525 ml medications Current Medications Medications Dose Ordered Sig/Saroj Route Start Time Stop Time Status Last Admin Dose Admin Nitroglycerin 0.4 mg Q5MINP PRN SL 12/10/24 17:45 Sodium Chloride 10 ml QSHIFT@10,22 IV 12/12/24 22:00 12/22/24 10:12 10 ML Ipratropium Massey 0.5 mg Q6HR NEB 12/13/24 12:00 12/22/24 06:15 0.5 MG Levalbuterol HCl 1.25 mg Q6HR NEB 12/13/24 12:00 12/22/24 06:15 1.25 MG Amiodarone HCl 200 mg Q12HR PO 12/15/24 22:00 12/22/24 11:05 200 MG Levalbuterol HCl 0.625 mg Q4HP PRN NEB 12/15/24 22:45 Ipratropium Massey 0.5 mg Q4HPRN PRN NEB 12/15/24 22:45 Acetaminophen/ Hydrocodone Bitart 1 tab Q6HPRN PRN PO 12/15/24 22:45 12/20/24 05:28 1 TAB Hydralazine HCl 10 mg Q6HP PRN IV 12/17/24 22:45 12/18/24 03:41 10 MG Apixaban 5 mg BID PO 12/19/24 22:00 12/22/24 10:12 5 MG Doxycycline Monohydrate 100 mg Q12HR PO 12/19/24 22:00 12/22/24 10:12 100 MG Furosemide 20 mg DAILY PO 12/20/24 10:00 12/22/24 11:19 20 MG Gabapentin 100 mg TID PO 12/19/24 22:00 12/22/24 15:33 100 MG Pantoprazole Sodium 40 mg DAILY@0600 PO 12/20/24 06:00 12/22/24 06:33 40 MG Prednisone 30 mg DAILY PO 12/21/24 09:45 12/22/24 10:12 30 MG Examination General Appearance: Alert, Oriented X3, Cooperative, No acute distress HEENT: Atraumatic, PERRLA, EOMI, Mucous membrane moist/pink Respiratory: Clear to auscultation, Normal air movement Cardiovascular: Regular rate, Normal S1, Normal S2, No murmurs, no chest wall tenderness Abdominal: NO distention, no tenderness, bowel sounds present, no scars noted Extremities: No clubbing, No cyanosis, No edema, Normal pulses, No tenderness/swelling Skin: No rashes, No breakdown, No significant lesion Neuro: Normal gait, Normal speech, Strength at 5/5 X4 ext, Normal tone, Sensation intact, Cranial nerves 3-12 NL, Reflexes 2+ Psych/Mental Status: Mental status NL, Mood NL laboratory and microbiology Laboratory Tests 12/20/24 10:29 Test 12/20/24 10:29 Range/Units Serum Glucose 184 H 74-106 mg/dL Microbiology Date/Time Source Procedure Growth Status 12/12/24 02:00 Blood Blood Culture - Final NO GROWTH AFTER 5 DAYS OF INCUBATION. Complete 12/11/24 18:30 Sputum Expectorated Sputum Gram Stain - Final Complete 12/11/24 18:30 Sputum Expectorated Sputum Respiratory Culture - Final Complete 12/10/24 20:35 Nose MRSA Screen - Final Complete Problem List/Assessment/Plan Problem List/Assessment/Plan Assessment and plan NEURO: Acute metabolic encephalopathy secondary to hypercapnia/carbon dioxide narcosis S/P extubation on 2L NC CARDIOVASCULAR: Acute exacerbation of chronic systolic heart failure with mildly reduced ejection fraction Possible NSTEMI type 2 likely due to sepsis New onset paroxysmal Afib with RVR with secondary hypercoagulable state, on amiodarone drip - Initial EKG showing sinus tachycardia and right ventricular hypertrophy - Echo showed EF 45-55%, RVSP 42 mm Hg, [id number] TR - BNP is 581.32 - Troponin trends were 147 > 131> 123 - cardiology on board - PO Lasix 20 mg daily - Amiodarone 200 mg p.o. b.i.d. - Lovenox 70 mg SC bid PULMONARY: Acute hypoxic/hypercapnic respiratory failure Acute on chronic respiratory failure due to exacerbation of COPD Acute exacerbation of chronic COPD with superimposed pneumonia Possible gram positive/ gram negative pneumonia Sepsis due to pneumonia History of Pulmonary embolism - Chest x-ray showed Extensive scarring is seen in the bilateral mid to upper lung douglas with Superimposed pneumonia. - Medneb with levalbuterol and ipratropium q.6 hours - Prednisone PO 40 mg daily taper by 10mg beginning tomorrow. - Doxycycline PO 100mg q12h - Covid, flu and MRSA are negative - Sputum culture: No micro organism seen - Lovenox 70 mg sc bid GASTROINTESTINAL: Hyperbilirubinemia with transaminitis likely due to sepsis resolved GENITOURINARY: UDS is positive for opioids Acute kidney injury ruled out ENDOCRINE: Prediabetes, HbA1C 6.2 Euthyroid Sick syndrome - TSH is low, T3 and T4 are low METABOLIC: Moderate protein calorie malnutrition, albumin 3.1 Hyperkalemia resolved INFECTIOUS DISEASE: Sepsis due to pneumonia Lactic acidosis due to sepsis Acute exacerbation of chronic COPD with superimposed pneumonia - Blood culture showed no growth in 24 hours of incubation - Lactic acid is 2.0 DIET: Cardiac diet DVT prophylax: Lovenox GI prophylaxis: Protonix Bowel regimen: None Code status: Full code LINES/DRAINS/ACCESS: s/p extubation IV access: Peripheral line, right arm PICC line placed on 12/10/2024 Drips: None Kimble catheter: Placed on 12/10/2024, Discontinued DISPOSITION: Med/surg Plan: animal services officer to plan for placement. Possible d/c tomorrow Patient's status discussed with patient, RN Goal of care discussed for more than 16 minutes: full code Case discussed with Dr. Meneses Plan discussed with: Patient Dietary Evaluation Review Comments: 1) TF Glucerna 1.2 Bhupendra @ 70ml/hr x 24 hr (goal). Start @ 20ml/hr, increase 10ml/hr Q4H until goal rate is reached. TF at goal volume provides 100% energy & protein needs - 2016 kcal, 101 gm protein, 1352 ml free water 2) Water flush 170ml Q6H if allowed 3) TPN if NPO>7 days 4) Monitor BW, lab values and skin integrity Expected Outcomes/Goals: To meet >75% estimated needs Fu 2-3 days ARTHUR AMEZQUITA RESIDENT Dec 22, 2024 18:41
[2024-12-23] VITALS (7 sets, daily range): BP systolic 90–126; BP diastolic 59–79; PULSE 84–97; RESP 16–18; TEMP 97.5–98.7; O2SAT 93–100
--- NOTE | 2024-12-23 18:21 | DVHPNRES ---
Progress Note Date Seen: Dec 23, 2024 Resident Creating Document: ARTHUR AMEZQUITA RESIDENT Has the PT tested + for MRSA If YES, has PT been informed?: No Medical Necessity Reason Pt with a Central, PICC or Fol: No Medical Necessity Reason Be picked up tonight between the hours of 7:00 p.m. to 730 Subjective Review of Systems Constitutional: Denies fever no chills no feeling of malaise HEENT: Denies headache, ear pain, ear discharges, conjunctivitis, nasal discharge throat pain Cardiovascular: Denies chest pain, palpitation, orthopnea, PND, or pedal edema Respiratory: Denies shortness of breath, cough cough, sputum production, hemoptysis, GI: Denies abdominal pain, nausea, vomiting, diarrhea, hematemesis, hematochezia, : Denies frequency, urgency, hematuria, Endocrine: Denies unintentional weight gain or weight loss, feeling of hot flashes, Miguel: Denies easy bruising, bleeding disorders, epistaxis Musculoskeletal: Denies joint pains, muscle aches Psych: No evidence of depression, ronna, suicidal ideation Objective vital signs Vital Sign Date Time Temp Pulse Resp B/P (MAP) Pulse Ox O2 Delivery O2 Flow Rate FiO2 12/23/24 16:30 97.6 97 16 108/75 (86) 98 97.6 12/23/24 08:25 Nasal Cannula* 3 32 Total Intake and Output 12/22/24 12/22/24 12/23/24 15:00 23:00 07:00 Intake Total 1200 ml 100 ml Output Total 200 ml 900 ml 150 ml Balance -200 ml 300 ml -50 ml medications Current Medications Medications Dose Ordered Sig/Saroj Route Start Time Stop Time Status Last Admin Dose Admin Nitroglycerin 0.4 mg Q5MINP PRN SL 12/10/24 17:45 Sodium Chloride 10 ml QSHIFT@10,22 IV 12/12/24 22:00 12/22/24 22:15 10 ML Ipratropium Bayard 0.5 mg Q6HR NEB 12/13/24 12:00 12/22/24 19:10 0.5 MG Levalbuterol HCl 1.25 mg Q6HR NEB 12/13/24 12:00 12/22/24 19:10 1.25 MG Amiodarone HCl 200 mg Q12HR PO 12/15/24 22:00 12/23/24 09:28 200 MG Levalbuterol HCl 0.625 mg Q4HP PRN NEB 12/15/24 22:45 Ipratropium Bayard 0.5 mg Q4HPRN PRN NEB 12/15/24 22:45 Acetaminophen/ Hydrocodone Bitart 1 tab Q6HPRN PRN PO 12/15/24 22:45 12/23/24 05:10 1 TAB Hydralazine HCl 10 mg Q6HP PRN IV 12/17/24 22:45 12/18/24 03:41 10 MG Apixaban 5 mg BID PO 12/19/24 22:00 12/23/24 09:27 5 MG Doxycycline Monohydrate 100 mg Q12HR PO 12/19/24 22:00 12/23/24 09:28 100 MG Furosemide 20 mg DAILY PO 12/20/24 10:00 12/23/24 09:27 20 MG Gabapentin 100 mg TID PO 12/19/24 22:00 12/23/24 12:44 100 MG Pantoprazole Sodium 40 mg DAILY@0600 PO 12/20/24 06:00 12/23/24 05:09 40 MG Prednisone 30 mg DAILY PO 12/21/24 09:45 12/23/24 09:27 30 MG Examination General Appearance: Alert, Oriented X3, Cooperative, No acute distress HEENT: Atraumatic, PERRLA, EOMI, Mucous membrane moist/pink Respiratory: Clear to auscultation, Normal air movement Cardiovascular: Regular rate, Normal S1, Normal S2, No murmurs, no chest wall tenderness Abdominal: NO distention, no tenderness, bowel sounds present, no scars noted Extremities: No clubbing, No cyanosis, No edema, Normal pulses, No tenderness/swelling Skin: No rashes, No breakdown, No significant lesion Neuro: Normal gait, Normal speech, Strength at 5/5 X4 ext, Normal tone, Sensation intact, Cranial nerves 3-12 NL, Reflexes 2+ Psych/Mental Status: Mental status NL, Mood NL laboratory and microbiology Laboratory Tests 12/20/24 10:29 Test 12/20/24 10:29 Range/Units Serum Glucose 184 H 74-106 mg/dL Microbiology Date/Time Source Procedure Growth Status 12/12/24 02:00 Blood Blood Culture - Final NO GROWTH AFTER 5 DAYS OF INCUBATION. Complete 12/11/24 18:30 Sputum Expectorated Sputum Gram Stain - Final Complete 12/11/24 18:30 Sputum Expectorated Sputum Respiratory Culture - Final Complete 12/10/24 20:35 Nose MRSA Screen - Final Complete Problem List/Assessment/Plan Problem List/Assessment/Plan Assessment and plan NEURO: Acute metabolic encephalopathy secondary to hypercapnia/carbon dioxide narcosis S/P extubation on 2L NC CARDIOVASCULAR: Acute exacerbation of chronic systolic heart failure with mildly reduced ejection fraction Possible NSTEMI type 2 likely due to sepsis New onset paroxysmal Afib with RVR with secondary hypercoagulable state, on amiodarone drip - Initial EKG showing sinus tachycardia and right ventricular hypertrophy - Echo showed EF 45-55%, RVSP 42 mm Hg, [id number] TR - BNP is 581.32 - Troponin trends were 147 > 131> 123 - cardiology on board - PO Lasix 20 mg daily - Amiodarone 200 mg p.o. b.i.d. - Lovenox 70 mg SC bid PULMONARY: Acute hypoxic/hypercapnic respiratory failure Acute on chronic respiratory failure due to exacerbation of COPD Acute exacerbation of chronic COPD with superimposed pneumonia Possible gram positive/ gram negative pneumonia Sepsis due to pneumonia History of Pulmonary embolism - Chest x-ray showed Extensive scarring is seen in the bilateral mid to upper lung douglas with Superimposed pneumonia. - Medneb with levalbuterol and ipratropium q.6 hours - Prednisone PO 40 mg daily taper by 10mg beginning tomorrow. - Doxycycline PO 100mg q12h - Covid, flu and MRSA are negative - Sputum culture: No micro organism seen - Lovenox 70 mg sc bid GASTROINTESTINAL: Hyperbilirubinemia with transaminitis likely due to sepsis resolved GENITOURINARY: UDS is positive for opioids Acute kidney injury ruled out ENDOCRINE: Prediabetes, HbA1C 6.2 Euthyroid Sick syndrome - TSH is low, T3 and T4 are low METABOLIC: Moderate protein calorie malnutrition, albumin 3.1 Hyperkalemia resolved INFECTIOUS DISEASE: Sepsis due to pneumonia Lactic acidosis due to sepsis Acute exacerbation of chronic COPD with superimposed pneumonia - Blood culture showed no growth in 24 hours of incubation - Lactic acid is 2.0 DIET: Cardiac diet DVT prophylax: Lovenox GI prophylaxis: Protonix Bowel regimen: None Code status: Full code LINES/DRAINS/ACCESS: s/p extubation IV access: Peripheral line, right arm PICC line placed on 12/10/2024 Drips: None Kimble catheter: Placed on 12/10/2024, Discontinued DISPOSITION: Med/surg Plan: office services representative to plan for placement. Possible d/c tomorrow Patient's status discussed with patient, RN Goal of care discussed for more than 16 minutes: full code Case discussed with Dr. Meneses Plan discussed with: Patient Dietary Evaluation Review Comments: 1) TF Glucerna 1.2 Bhupendra @ 70ml/hr x 24 hr (goal). Start @ 20ml/hr, increase 10ml/hr Q4H until goal rate is reached. TF at goal volume provides 100% energy & protein needs - 2016 kcal, 101 gm protein, 1352 ml free water 2) Water flush 170ml Q6H if allowed 3) TPN if NPO>7 days 4) Monitor BW, lab values and skin integrity Expected Outcomes/Goals: To meet >75% estimated needs Fu 2-3 days ARTHUR AMEZQUITA RESIDENT Dec 23, 2024 18:21
== END 2024-12-23 20:10 | disposition home or self-care (01) | DRG 720 ==
LOC: ER 12:22 → EDBD 12:22 → OVERFLOW 17:35 → TELE-WESTW 19:10 → CATH ICU 12-11 16:59 → ICU WEST 12-12 16:11 → TELE-WESTW 12-18 19:10
PROVIDERS: ADMIT Internal Medicine Pulmonary Disease; ATTEND Internal Medicine Pulmonary Disease
PROC: 5A1945Z Respiratory Ventilation, 24-96 Consecutive Hours (ICD-10-PCS; 2024-12-11)
PROC: 0BH17EZ Insertion of Endotracheal Airway into Trachea, Via Natural or Artificial Opening (ICD-10-PCS; 2024-12-11)
PROC: 02HV33Z Insertion of Infusion Device into Superior Vena Cava, Percutaneous Approach (ICD-10-PCS; 2024-12-12)
PROC: B548ZZA Ultrasonography of Superior Vena Cava, Guidance (ICD-10-PCS; 2024-12-12)
PROC: 5A09357 Assistance with Respiratory Ventilation, Less than 24 Consecutive Hours, Continuous Positive Airway Pressure (ICD-10-PCS; principal; 2024-12-16)
PROC: 5A09357 Assistance with Respiratory Ventilation, Less than 24 Consecutive Hours, Continuous Positive Airway Pressure (ICD-10-PCS; 2024-12-18)
DX: A41.50 Gram-negative sepsis, unspecified (principal); J96.21 Acute and chronic respiratory failure with hypoxia; G93.41 Metabolic encephalopathy; I50.23 Acute on chronic systolic (congestive) heart failure; J15.69 Pneumonia due to other Gram-negative bacteria; I21.A1 Myocardial infarction type 2; E44.0 Moderate protein-calorie malnutrition; D69.6 Thrombocytopenia, unspecified; D68.69 Other thrombophilia; E87.29 Other acidosis; I48.0 Paroxysmal atrial fibrillation; J96.22 Acute and chronic respiratory failure with hypercapnia; J44.1 Chronic obstructive pulmonary disease with (acute) exacerbation; I11.0 Hypertensive heart disease with heart failure; Z68.21 Body mass index [BMI] 21.0-21.9, adult; J15.9 Unspecified bacterial pneumonia; E80.6 Other disorders of bilirubin metabolism; R73.03 Prediabetes; E07.81 Sick-euthyroid syndrome; J44.0 Chronic obstructive pulmonary disease with (acute) lower respiratory infection; J43.2 Centrilobular emphysema; Z20.822 Contact with and (suspected) exposure to COVID-19; I27.21 Secondary pulmonary arterial hypertension; E78.5 Hyperlipidemia, unspecified; E87.5 Hyperkalemia; R74.01 Elevation of levels of liver transaminase levels; Z79.899 Other long term (current) drug therapy; Z86.711 Personal history of pulmonary embolism; Z79.01 Long term (current) use of anticoagulants; Z79.82 Long term (current) use of aspirin
CPT/HCPCS: 31500; 36415; 36569; 36600; 71045; 71250; 76937; 80048; 80053; 80061; 80202; 80307; 81001; 82805; 82962; 83036; 83605; 83735; 83880; 84439; 84443; 84481; 84484; 85007; 85025; 85027; 85379; 85610; 85730; 87040; 87070; 87081; 87205; 87426; 87804; 93005; 93306; 94002; 94003; 94640; 94660; 96374; 97110; 97116; 97163; 99291; G0378; J0330; J1956; J2470; J3480